=== PATIENT | male | born 1965 | race Caucasian/White ===

== ENCOUNTER 2018-09-28 09:09 | Inpatient (IN) | payer BC ==
[2018-09-28] MEDS ORDERED: SODIUM CHLORIDE 0.9% 500 ML 500 ML IV STA (09:27)
[2018-09-28] MEDS ORDERED: MAG HYDROX/AL HYDROX/SIMETH 30 ML, HYOSCYAMINE ELIXIR 10 ML, CIMETIDINE HCL 300 MG, LID... PO STA ×4 (09:28)
--- NOTE | 2018-09-28 09:31 | ED ---
General Adult HPI - General Chief complaint: Abdominal Pain Stated complaint: abdominal pain Time Seen by Provider: 09/28/18 09:16 Source: patient, RN notes reviewed, old records reviewed Mode of arrival: ambulatory Limitations: no limitations - History of Present Illness Initial comments: 53-year-old male with no significant past medical history presenting for evaluation of epigastric abdominal pain which is been present for the past 5 days. Patient has had some mild nausea. No diarrhea or constipation. He has been seen at urgent care, he did have laboratory testing and x-ray, he is uncertain of the results of this testing. He does report a 15-20 pound weight loss over the past several months. He has no chest pain or dyspnea. No cough. He has subjective fever and chills. - Related Data Home Medications Medication Instructions Recorded Confirmed Ibuprofen [Motrin Ib] 200 mg PO Q12HR PRN 09/28/18 09/28/18 Multivitamins, Thera [Multivitamin 1 tab PO DAILY 09/28/18 09/28/18 (formulary)] Pantoprazole Sodium [Protonix] 40 mg PO DAILY 09/28/18 09/28/18 Previous Rx's Medication Instructions Recorded Acetaminophen-Codeine 300-30mg 1 tab PO Q6H PRN 3 Days #12 tablet 09/28/18 [Tylenol w/codeine #3] Sulfamethox-Tmp 800-160Mg [Bactrim 1 tab PO Q12HR #10 tab 09/28/18 DS 800-160 mg] Allergies Allergy/AdvReac Type Severity Reaction Status Date / Time No Known Allergies Allergy Verified 09/28/18 09:33 Review of Systems ROS Statement: Those systems with pertinent positive or pertinent negative responses have been documented in the HPI. ROS Other: All systems not noted in ROS Statement are negative. Past Medical History Past Medical History: No Reported History History of Any Multi-Drug Resistant Organisms: None Reported Past Surgical History: Hernia Repair Past Psychological History: No Psychological Hx Reported Smoking Status: Current every day smoker Past Alcohol Use History: None Reported Past Drug Use History: None Reported General Exam Limitations: no limitations General appearance: alert, in no apparent distress Head exam: Present: atraumatic, normocephalic Eye exam: Present: normal appearance, PERRL ENT exam: Present: normal exam Neck exam: Present: normal inspection. Absent: tenderness, meningismus Respiratory exam: Present: normal lung sounds bilaterally. Absent: respiratory distress, wheezes Cardiovascular Exam: Present: regular rate, normal rhythm GI/Abdominal exam: Present: soft. Absent: distended, tenderness, guarding, rebound Extremities exam: Present: normal inspection, normal capillary refill Neurological exam: Present: alert, oriented X3 Psychiatric exam: Present: normal affect, normal mood Skin exam: Present: warm, dry, intact. Absent: cyanosis, diaphoretic Course Vital Signs 09/28/18 09/28/18 09/28/18 09:12 11:26 12:40 Temperature 99.4 F 100 F H 101.8 F H Pulse Rate 76 69 62 Respiratory 18 18 18 Rate Blood Pressure 116/77 116/52 122/68 O2 Sat by Pulse 97 98 100 Oximetry 09/28/18 13:21 Temperature 103.1 F H Pulse Rate 78 Respiratory 18 Rate Blood Pressure 126/53 O2 Sat by Pulse 96 Oximetry Medical Decision Making - Medical Decision Making 53-year-old male with epigastric pain, anorexia and nausea. Patient has minimal tenderness on exam, no rebound or guarding. Workup was initiated, found to have a white blood cell count 16.6, hemoglobin 12.3. He has normal electrolytes. He has urinalysis showing 3+ ketones consistent with dehydration, no infection. CT is performed, he has hepatomegaly, CT showing inflammation in the colon. He denies significant diarrhea but states she did have a loose stool earlier today. Patient continues to have pain and nausea, he develops fever of 103. He is given antipyretics. Initiated on antibiotics ceftriaxone and Flagyl. He will be admitted with gastroenterology on consult. - Lab Data Result diagrams: 09/28/18 09:45 09/28/18 09:45 Lab Results 09/28/18 09/28/18 09/28/18 Range/Units 09:45 09:45 09:45 WBC 16.6 H (3.8-10.6) k/uL RBC 3.81 L (4.30-5.90) m/uL Hgb 12.3 L (13.0-17.5) gm/dL Hct 36.2 L (39.0-53.0) % MCV 95.0 (80.0-100.0) fL MCH 32.2 (25.0-35.0) pg MCHC 33.9 (31.0-37.0) g/dL RDW 13.8 (11.5-15.5) % Plt Count 205 (150-450) k/uL Neutrophils % 88 % Lymphocytes % 4 % Monocytes % 7 % Eosinophils % 1 % Basophils % 0 % Neutrophils # 14.6 H (1.3-7.7) k/uL Lymphocytes # 0.6 L (1.0-4.8) k/uL Monocytes # 1.1 H (0-1.0) k/uL Eosinophils # 0.2 (0-0.7) k/uL Basophils # 0.0 (0-0.2) k/uL Sodium 134 L (137-145) mmol/L Potassium 4.2 (3.5-5.1) mmol/L Chloride 101 (98-107) mmol/L Carbon Dioxide 22 (22-30) mmol/L Anion Gap 11 mmol/L BUN 17 (9-20) mg/dL Creatinine 0.67 (0.66-1.25) mg/dL Est GFR (CKD-EPI)AfAm >90 (>60 ml/min/1.73 sqM) Est GFR (CKD-EPI)NonAf >90 (>60 ml/min/1.73 sqM) Glucose 114 H (74-99) mg/dL Plasma Lactic Acid Juan (0.7-2.0) mmol/L Calcium 8.7 (8.4-10.2) mg/dL Total Bilirubin 1.1 (0.2-1.3) mg/dL AST 30 (17-59) U/L ALT 37 (21-72) U/L Alkaline Phosphatase 70 (38-126) U/L Troponin I <0.012 (0.000-0.034) ng/mL Total Protein 6.4 (6.3-8.2) g/dL Albumin 3.4 L (3.5-5.0) g/dL Amylase 52 (30-110) U/L Lipase 18 L (23-300) U/L Urine Color Urine Appearance (Clear) Urine pH (5.0-8.0) Ur Specific [place] (1.001-1.035) Urine Protein (Negative) Urine Glucose (UA) (Negative) Urine Ketones (Negative) Urine Blood (Negative) Urine Nitrite (Negative) Urine Bilirubin (Negative) Urine Urobilinogen (<2.0) mg/dL Ur Leukocyte Esterase (Negative) 09/28/18 09/28/18 Range/Units 09:45 11:01 WBC (3.8-10.6) k/uL RBC (4.30-5.90) m/uL Hgb (13.0-17.5) gm/dL Hct (39.0-53.0) % MCV (80.0-100.0) fL MCH (25.0-35.0) pg MCHC (31.0-37.0) g/dL RDW (11.5-15.5) % Plt Count (150-450) k/uL Neutrophils % % Lymphocytes % % Monocytes % % Eosinophils % % Basophils % % Neutrophils # (1.3-7.7) k/uL Lymphocytes # (1.0-4.8) k/uL Monocytes # (0-1.0) k/uL Eosinophils # (0-0.7) k/uL Basophils # (0-0.2) k/uL Sodium (137-145) mmol/L Potassium (3.5-5.1) mmol/L Chloride (98-107) mmol/L Carbon Dioxide (22-30) mmol/L Anion Gap mmol/L BUN (9-20) mg/dL Creatinine (0.66-1.25) mg/dL Est GFR (CKD-EPI)AfAm (>60 ml/min/1.73 sqM) Est GFR (CKD-EPI)NonAf (>60 ml/min/1.73 sqM) Glucose (74-99) mg/dL Plasma Lactic Acid Juan 1.1 (0.7-2.0) mmol/L Calcium (8.4-10.2) mg/dL Total Bilirubin (0.2-1.3) mg/dL AST (17-59) U/L ALT (21-72) U/L Alkaline Phosphatase (38-126) U/L Troponin I (0.000-0.034) ng/mL Total Protein (6.3-8.2) g/dL Albumin (3.5-5.0) g/dL Amylase (30-110) U/L Lipase (23-300) U/L Urine Color Yellow Urine Appearance Clear (Clear) Urine pH 6.5 (5.0-8.0) Ur Specific [place] >1.050 H (1.001-1.035) Urine Protein Trace H (Negative) Urine Glucose (UA) Negative (Negative) Urine Ketones 3+ H (Negative) Urine Blood Negative (Negative) Urine Nitrite Negative (Negative) Urine Bilirubin Negative (Negative) Urine Urobilinogen <2.0 (<2.0) mg/dL Ur Leukocyte Esterase Negative (Negative) Disposition Clinical Impression: Abdominal pain, Colitis Disposition: ADMITTED IP TO THIS [facility] Condition: Stable Instructions (If sedation given, give patient instructions): Colitis (ED) Additional Instructions: Please return with worsening or changing symptoms, please follow up with gastroenterology for further evaluation. Prescriptions: Sulfamethox-Tmp 800-160Mg [Bactrim DS 800-160 mg] 1 tab PO Q12HR #10 tab Acetaminophen-Codeine 300-30mg [Tylenol w/codeine #3] 1 tab PO Q6H PRN 3 Days #12 tablet PRN Reason: Pain Is patient prescribed a controlled substance at d/c from ED?: No Referrals: Zen Parsons MD [Primary Care Provider] - 1-2 days Marycarmen Barraza MD [STAFF PHYSICIAN] - 1-2 days Time of Disposition: 11:57
[2018-09-28 10:10] LABS: Basophils % (A) 0 %; Eosinophils # (A) 0.2 k/uL (0-0.7); Eosinophils % (A) 1 %; HCT 36.2 % (39.0-53.0); HGB 12.3 gm/dL (13.0-17.5); Lymphocytes # (A) 0.6 k/uL (1.0-4.8); Lymphocytes % (A) 4 %; MCH 32.2 pg (25.0-35.0); MCHC 33.9 g/dL (31.0-37.0); Mean Platelet Volume 8.1; Monocytes # (A) 1.1 k/uL (0-1.0); Monocytes % (A) 7 %; Neutrophils # (A) 14.6 k/uL (1.3-7.7); Neutrophils % (A) 88 %; Platelet Count 205 k/uL (150-450); RBC 3.81 m/uL (4.30-5.90); RDW 13.8 % (11.5-15.5); WBC 16.6 k/uL (3.8-10.6)
[2018-09-28 10:16] LABS: ALT 37 U/L (21-72); AST 30 U/L (17-59); African American GFR (CKD) >90 (>60 ml/min/1.73 sqM); Albumin 3.4 g/dL (3.5-5.0); Alkaline Phosphatase 70 U/L (38-126); Amylase 52 U/L (30-110); Anion Gap 11 mmol/L; Blood Urea Nitrogen 17 mg/dL (9-20); Calcium 8.7 mg/dL (8.4-10.2); Carbon Dioxide 22 mmol/L (22-30); Chloride 101 mmol/L (98-107); Glucose 114 mg/dL (74-99); Lipase 18 U/L (23-300); Potassium 4.2 mmol/L (3.5-5.1); Sodium 134 mmol/L (137-145); Total Bilirubin 1.1 mg/dL (0.2-1.3); Total Protein 6.4 g/dL (6.3-8.2)
--- NOTE | 2018-09-28 10:27 | CT ---
EXAMINATION TYPE: CT abdomen pelvis w con DATE OF EXAM: 09/28/2018 REFERENCE: NONE HISTORY: abdominal pain HISTORY: Abdominal pain CT DLP: 587.7 mGy Automated exposure control for dose reduction was used. TECHNIQUE: Helical acquisition through the abdomen and pelvis was obtained following the oral ingesti on of without Oral Contrast and following intravenous administration of 100 mL of Isovue 300. The bhumi a was reformatted in axial, coronal and sagittal projections. FINDINGS: There is minimal atelectasis at the lung bases. There is no pleural or pericardial fluid. The heart is not enlarged. Within the abdomen, the liver is normal mildly prominent measuring 20 cm. The spleen is upper limits of normal size measuring 12.5 cm. The gallbladder is unremarkable. Both adrenal glands are normal. Both kidneys demonstrate function and appear morphologically normal. The pancreas is unremarkable. There is no significant retroperitoneal, iliac or inguinal adenopathy. The bladder appears slightly thick walled but it is not distended. There is thickening of sections of the transverse colon and also the sigmoid colon. The appendix is n ot seen with certainty. Small bowel loops are normal caliber. There is no free fluid and no free air. No bony lesion is seen. IMPRESSION: 1. HEPATOMEGALY. 2. THICKENING OF PARTS OF THE TRANSVERSE COLON AND SIGMOID COLONS. PLEASE CORRELATE FOR COLITIS. 3. FAILURE TO VISUALIZE THE APPENDIX. 4. THICK-WALLED BLADDER LIKELY REFLECTS LACK OF DISTENTION.
[2018-09-28 11:20] LABS: Appearance,Urine Clear (Clear); Bilirubin,Urine Negative (Negative); Blood,Urine Negative (Negative); Color,Urine Yellow; Glucose,Urine (UA) Negative (Negative); Ketones,Urine 3+ (Negative); Leukocyte Esterase,Urine Negative (Negative); Nitrite,Urine Negative (Negative); PH, Urine 6.5 (5.0-8.0); Protein,Urine Trace (Negative); Urobilinogen,Urine <2.0 mg/dL (<2.0)
[2018-09-28 11:33] LABS: Specific Gravity,Urine >1.050 (1.001-1.035)
[2018-09-28] MEDS ORDERED: cefTRIAXone IN SWFI 1,000 MG/10 ML SYRINGE IVP STA ×2 (11:38→11:41)
[2018-09-28] MEDS ORDERED: metroNIDAZOLE-NS PMX 500 MG in SALINE 1 100ML.BAG IVPB STA (11:38)
[2018-09-28] MEDS ORDERED: SODIUM CHLORIDE 0.9% 1,000 ML IV ONE (11:38)
[2018-09-28] MEDS ORDERED: KETOROLAC 30 MG/ML 1 ML VIAL IVP STA (13:15)
[2018-09-28] MEDS ORDERED: NALOXONE 0.4 MG/ML 1 ML VIAL IV PRN (13:48)
[2018-09-28] MEDS ORDERED: ONDANSETRON 4 MG/2 ML VIAL IVP PRN (13:48)
[2018-09-28] MEDS ORDERED: SODIUM CHLORIDE 0.9% 1,000 ML IV SCH (14:00)
[2018-09-28] MEDS: ACETAMINOPHEN TAB 325 MG TAB PO PRN ×2 (15:12→20:25)
[2018-09-28] MEDS: IBUPROFEN 400 MG TAB PO PRN ×2 (16:24→22:30)
--- NOTE | 2018-09-28 21:48 | HP ---
HISTORY AND PHYSICAL DATE OF ADMISSION: September 28, 2018. PRESENTING COMPLAINT: Abdominal pain. HISTORY OF PRESENTING COMPLAINT: This is a very pleasant 53-year-old patient of Dr. Parsons. Five days ago patient had a very large [employer] [place] dish and then felt some discomfort in the epigastric area. Slowly this progressively got worse. Pain was more localized to the upper abdomen. The patient did go to Urgent Care yesterday. Also started having some nausea. Then patient started spiking fevers up to 103 when he came here. No change in bowel pattern. Also having fever and chills. The patient is started on IV ceftriaxone and IV Flagyl in the ER. The patient otherwise healthy, in good shape pretty active. Has no history of reflux. No known gallbladder disease. REVIEW OF SYSTEMS: CONSTITUTIONAL: Hot, cold chills. HEENT: None. RESPIRATORY none. CARDIOVASCULAR: None. GASTROINTESTINAL as above. GENITOURINARY: None. MUSCULOSKELETAL: None. DERMATOLOGICAL, HEMATOLOGIC, LYMPHATIC: none. PSYCHIATRY none. NEUROLOGICAL none. PAST MEDICAL HISTORY: None. PAST SURGICAL HISTORY: Hernia repair, right fibula spiral fracture, 1 plate and 10 screws that was removed in 2000. SOCIAL HISTORY: Smokes about 3-4 cigarettes a day. 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 Lives by himself. Alcohol very occasionally. FAMILY HISTORY: Diabetes and cardiac issues. MEDICATIONS: Home medications: Protonix 40 mg a day, multivitamin 1 tablet p.o. daily, Motrin 200 mg q.12 p.r.n., Bactrim DS 1 tablet p.o. q.12, Tylenol 3. ALLERGIES: None. PHYSICAL EXAMINATION: VITAL SIGNS: Temperature 103.1, pulse 72, respiratory 18, blood pressure 126/53, pulse ox 96 percent on room air. GENERAL APPEARANCE: Average build, lying in bed. A bit tired-appearing. EYES: Pupils equal. Conjunctivae normal. HEENT external appearance of nose and ears normal. Oral cavity normal. NECK: JVD not raised. Mass not palpable. RESPIRATORY: Effort normal. LUNGS: Fair air entry. CARDIOVASCULAR: First and second sounds no edema. ABDOMEN: Upper abdomen tenderness. No guarding or rigidity. Liver and spleen not palpable. LYMPHATIC: No lymph nodes palpable in the neck and axilla. PSYCHIATRY: Alert and oriented x3. Mood and affect normal. NEUROLOGICAL: Pupils equal. Cranial nerves grossly intact. Power and sensation grossly intact. INVESTIGATIONS: White count 16.6, hemoglobin 12.3, potassium 4.2, BUN creatinine is normal. Amylase 52, lipase 18. CT scan of the abdomen and pelvis, gallbladder unremarkable, section of the transverse colon and also the sigmoid colon. ASSESSMENT: Acute colitis affecting the transverse and sigmoid colon, likely colitis, likely infectious with a septic picture. PLAN: Patient is started on IV ceftriaxone and Flagyl. We will give Lovenox for DVT prophylaxis. Start the patient on lactated Ringer's 125 mL an hour. We will get both Gastroenterology and surgical consultations. Care was discussed with the patient. Questions were answered. The patient will be made n.p.o. except for ice chips. Copy to Dr. Parsons. HIPOLITO / RICHAR: [id number] /
[2018-09-28] MEDS: ENOXAPARIN 40 MG/0.4 ML SYRINGE SQ SCH (22:25)
[2018-09-28] MEDS: LACTATED RINGERS 1,000 ML IV SCH (22:26)
[2018-09-29] MEDS: MORPHINE SULFATE 4 MG/ML SYRINGE IV PRN ×4 (01:08→21:18)
[2018-09-29] MEDS: LACTATED RINGERS 1,000 ML IV SCH ×2 (05:44→13:20)
[2018-09-29] MEDS: PANTOPRAZOLE 40 MG/10 ML VIAL IV SCH (07:50)
[2018-09-29] MEDS: ENOXAPARIN 40 MG/0.4 ML SYRINGE SQ SCH (07:50)
[2018-09-29] MEDS: ACETAMINOPHEN TAB 325 MG TAB PO PRN ×2 (11:11→19:44)
[2018-09-29 11:35] LABS: Basophils % (A) 0 %; Eosinophils % (A) 1 %; HCT 36.6 % (39.0-53.0); Lymphocytes # (A) 0.4 k/uL (1.0-4.8); Lymphocytes % (A) 6 %; MCH 31.7 pg (25.0-35.0); MCHC 32.8 g/dL (31.0-37.0); MCV 96.8 fL (80.0-100.0); Mean Platelet Volume 8.1; Monocytes # (A) 0.6 k/uL (0-1.0); Monocytes % (A) 7 %; Neutrophils # (A) 6.6 k/uL (1.3-7.7); Neutrophils % (A) 85 %; Platelet Count 166 k/uL (150-450); RBC 3.78 m/uL (4.30-5.90); RDW 13.6 % (11.5-15.5); WBC 7.8 k/uL (3.8-10.6)
[2018-09-29 11:44] LABS: ALT 58 U/L (21-72); AST 55 U/L (17-59); African American GFR (CKD) >90 (>60 ml/min/1.73 sqM); Albumin 2.7 g/dL (3.5-5.0); Alkaline Phosphatase 64 U/L (38-126); Anion Gap 7 mmol/L; Blood Urea Nitrogen 13 mg/dL (9-20); Calcium 8.1 mg/dL (8.4-10.2); Carbon Dioxide 25 mmol/L (22-30); Chloride 103 mmol/L (98-107); Glucose 91 mg/dL (74-99); Potassium 4.3 mmol/L (3.5-5.1); Sodium 135 mmol/L (137-145); Total Bilirubin 0.7 mg/dL (0.2-1.3); Total Protein 5.4 g/dL (6.3-8.2)
--- NOTE | 2018-09-29 11:53 | P.GSCN ---
<Smiley Boucher A - Last Filed: 09/29/18 12:20> History of Present Illness Consult date: 09/29/18 Reason for Consult: abdominal pain Requesting physician: Rodger Horvath History of present illness: CHIEF COMPLAINT: Abdominal pain HISTORY OF PRESENT ILLNESS: 53-year-old male who presented to emergency room with chief complaint of abdominal pain. Patient states he began having epigastric pain last Saturday and the pain is continued since that time. He reports the pain has radiated a little bit but the majority of his pain is near the epigastric region. He denies lower abdominal pain. He reports having some constipation in July and states he had to follow a liquid diet for a couple weeks and then the constipation resolved. He denies diarrhea. Denies hematemesis, hematochezia, or melena. Patient reports having fevers of 101F before coming to the hospital. He denies previous history of EGD or colonoscopy. PAST MEDICAL HISTORY: See list. PAST SURGICAL HISTORY: See list. MEDICATIONS: See list. ALLERGIES: See list. SOCIAL HISTORY: No illicit drug use. REVIEW OF SYSTEMS: CONSTITUTIONAL: Reports fevers. HEENT: Denies blurred vision, vision changes, or eye pain. Denies hemoptysis ENDOCRINE: Denies heat or cold intolerance. CARDIOVASCULAR: Denies chest pain or pressure. RESPIRATORY: No shortness of breath. GASTROINTESTINAL: See HPI for pertinent findings. NEURO: Denies history of seizures. PSYCH: No depression or suicidal ideation HEMATOLOGIC: Denies bleeding disorders. LYMPHATIC: The patient denies any lumps and bumps around the neck. GENITOURINARY: Denies any blood in urine or increased urinary frequency. MUSCULOSKELETAL: Denies myalgias. Denies joint swelling. Denies decreased range of motion beyond patients baseline. SKIN: Denies pruitis. Denies rash. PHYSICAL EXAM: VITAL SIGNS: Currently stable. GENERAL: Well-developed in no acute distress. HEENT: No sclera icterus. Extraocular movements grossly intact. Moist buccal mucosa. Head is atraumatic, normocephalic. Hears conversational speech. No nasal drainage. NECK: Supple without lymphadenopathy. CHEST: Non-labored respirations and equal bilateral excursions. CARDIOVASCULAR: Regular rate with regular rhythm. Palpable 2+ radial pulses. ABDOMEN: Soft. Nondistended. Positive bowel sounds. Tenderness on palpation epigastric region. No pain or tenderness with palpation of lower quadrants. MUSCULOSKELETAL: No clubbing, cyanosis or edema. NEUROLOGIC: No focal or lateralizing signs. Cranial nerves II through XII grossly intact. PSYCH: Appropriate affect. Alert and oriented to person, place and time. SKIN: Well perfused. Good skin turgor. LABORATORY DATA: Laboratory on admission reveals white count 16.6. Hemoglobin 12.3. Sodium 134. Potassium 4.2. BUN 17. Creatinine 0.67. Repeat blood work this morning reveals white count 7.8. Hemoglobin 12.0. IMAGING: Per radiologist dictation 1. CT abdomen and pelvis: Hepatomegaly. Thickening of parts of the transverse colon and sigmoid colon. Correlate for colitis. The gallbladder likely reflects lack of distention. ASSESSMENT: 1. Epigastric pain 2. Acute colitis per CT scan dictation, however suspect acute diverticulitis per Dr. Loya 3. Sepsis, present on admission, patient presented with fever and leukocytosis PLAN: 1. Continue IV antibiotics 2. NPO 3. EGD scheduled for tomorrow with Dr. Loya 4. Outpatient colonoscopy will be required in 4-6 weeks once diverticulitis resolved Nurse practitioner note has been reviewed by physician. Signing provider agrees with the documented findings, assessment, and plan of care. Past Medical History Past Medical History: No Reported History History of Any Multi-Drug Resistant Organisms: None Reported Past Surgical History: Hernia Repair, Orthopedic Surgery Additional Past Surgical History / Comment(s): 1997 right fibula spiral fracture-1 plate 10 screws placed (removed 2000) Past Anesthesia/Blood Transfusion Reactions: Motion Sickness Past Psychological History: No Psychological Hx Reported Smoking Status: Current every day smoker Past Alcohol Use History: None Reported Past Drug Use History: None Reported - Past Family History Mother Family Medical History: Diabetes Mellitus Father Additional Family Medical History / Comment(s): patient states "cardiac issues" Medications and Allergies Home Medications Medication Instructions Recorded Confirmed Type Acetaminophen-Codeine 300-30mg 1 tab PO Q6H PRN 3 Days #12 tablet 09/28/18 Rx [Tylenol w/codeine #3] Ibuprofen [Motrin Ib] 200 mg PO Q12HR PRN 09/28/18 09/28/18 History Multivitamins, Thera [Multivitamin 1 tab PO DAILY 09/28/18 09/28/18 History (formulary)] Pantoprazole Sodium [Protonix] 40 mg PO DAILY 09/28/18 09/28/18 History Sulfamethox-Tmp 800-160Mg [Bactrim 1 tab PO Q12HR #10 tab 09/28/18 Rx DS 800-160 mg] Allergies Allergy/AdvReac Type Severity Reaction Status Date / Time No Known Allergies Allergy Verified 09/28/18 09:33 Surgical - Exam Vital Signs Temp Pulse Resp BP Pulse Ox 99.4 F 76 18 116/77 97 09/28/18 09:12 09/28/18 09:12 09/28/18 09:12 09/28/18 09:12 09/28/18 09:12 Results - Labs 09/29/18 10:54 09/29/18 10:54 Abnormal Lab Results - Last 24 Hours (Table) 09/29/18 Range/Units 10:54 RBC 3.78 L (4.30-5.90) m/uL Hgb 12.0 L (13.0-17.5) gm/dL Hct 36.6 L (39.0-53.0) % Lymphocytes # 0.4 L (1.0-4.8) k/uL Assessment and Plan (1) Epigastric pain Current Visit: Yes Status: Acute Code(s): R10.13 - EPIGASTRIC PAIN SNOMED Code(s): 09451616 (2) Diverticulitis Current Visit: Yes Status: Acute Code(s): K57.92 - DVTRCLI OF INTEST, PART UNSP, W/O PERF OR ABSCESS W/O BLEED SNOMED Code(s): 451363027 (3) Sepsis Current Visit: Yes Status: Acute Code(s): A41.9 - SEPSIS, UNSPECIFIED ORGANISM SNOMED Code(s): 04670591 (4) Leukocytosis Current Visit: Yes Status: Acute Code(s): D72.829 - ELEVATED WHITE BLOOD CELL COUNT, UNSPECIFIED SNOMED Code(s): 017444180 (5) Fever Current Visit: Yes Status: Acute Code(s): R50.9 - FEVER, UNSPECIFIED SNOMED Code(s): 511874273 <Wendy Loya - Last Filed: 09/29/18 19:39> History of Present Illness History of present illness: CT of the abdomen and pelvis personally reviewed with sigmoid diverticulitis found without perforation. Patient reports epigastric pain which is his main symptom. He denies any lower abdominal pain with the exception of change in bowel habits in the last 2 weeks and constipation. Will proceed with EGD. Colonoscopy as outpatient as he reports no prior colonoscopies. Surgical - Exam Vital Signs Temp Pulse Resp BP Pulse Ox 99.4 F 76 18 116/77 97 09/28/18 09:12 09/28/18 09:12 09/28/18 09:12 09/28/18 09:12 09/28/18 09:12 Results - Labs 09/29/18 10:54 09/29/18 10:54 Abnormal Lab Results - Last 24 Hours (Table) 09/29/18 09/29/18 Range/Units 10:54 10:54 RBC 3.78 L (4.30-5.90) m/uL Hgb 12.0 L (13.0-17.5) gm/dL Hct 36.6 L (39.0-53.0) % Lymphocytes # 0.4 L (1.0-4.8) k/uL Sodium 135 L (137-145) mmol/L Calcium 8.1 L (8.4-10.2) mg/dL Total Protein 5.4 L (6.3-8.2) g/dL Albumin 2.7 L (3.5-5.0) g/dL Microbiology - Last 24 Hours (Table) 09/28/18 09:45 Blood Culture - Preliminary Blood No Growth after 24 hours Diabetes panel 09/29/18 Range/Units 10:54 Sodium 135 L (137-145) mmol/L Potassium 4.3 (3.5-5.1) mmol/L Chloride 103 (98-107) mmol/L Carbon Dioxide 25 (22-30) mmol/L BUN 13 (9-20) mg/dL Creatinine 0.66 (0.66-1.25) mg/dL Glucose 91 (74-99) mg/dL Calcium 8.1 L (8.4-10.2) mg/dL AST 55 (17-59) U/L ALT 58 (21-72) U/L Alkaline Phosphatase 64 (38-126) U/L Total Protein 5.4 L (6.3-8.2) g/dL Albumin 2.7 L (3.5-5.0) g/dL Calcium panel 09/29/18 Range/Units 10:54 Calcium 8.1 L (8.4-10.2) mg/dL Albumin 2.7 L (3.5-5.0) g/dL Pituitary panel 09/29/18 Range/Units 10:54 Sodium 135 L (137-145) mmol/L Potassium 4.3 (3.5-5.1) mmol/L Chloride 103 (98-107) mmol/L Carbon Dioxide 25 (22-30) mmol/L BUN 13 (9-20) mg/dL Creatinine 0.66 (0.66-1.25) mg/dL Glucose 91 (74-99) mg/dL Calcium 8.1 L (8.4-10.2) mg/dL Adrenal panel 09/29/18 Range/Units 10:54 Sodium 135 L (137-145) mmol/L Potassium 4.3 (3.5-5.1) mmol/L Chloride 103 (98-107) mmol/L Carbon Dioxide 25 (22-30) mmol/L BUN 13 (9-20) mg/dL Creatinine 0.66 (0.66-1.25) mg/dL Glucose 91 (74-99) mg/dL Calcium 8.1 L (8.4-10.2) mg/dL Total Bilirubin 0.7 (0.2-1.3) mg/dL AST 55 (17-59) U/L ALT 58 (21-72) U/L Alkaline Phosphatase 64 (38-126) U/L Total Protein 5.4 L (6.3-8.2) g/dL Albumin 2.7 L (3.5-5.0) g/dL
--- NOTE | 2018-09-29 12:10 | P.CONS ---
History of Present Illness - Reason for Consult Consult date: 09/29/18 Abdominal pain colitis Requesting physician: Rodger Horvath - Chief Complaint Abdominal pain - History of Present Illness 53-year-old male admitted with fever T-max 103.1 upper abdominal epigastric pain GERD type symptoms 1 week with 15-20 pound weight loss for the last several months without diarrhea constipation hematemesis hematochezia or melena. Similar presentation of these types of symptoms about a month ago but resolved within a short period of time. Otherwise no history of these types of symptoms. No recent travels. No sick contacts. CT report transverse sigmoid colitis hepatomegaly. White count 16.6. Hemoglobin 12.3. LFTs within normal limits. Lipase 18. No history of EGD colonoscopy. No history of colitis. No history of personal or familial inflammatory bowel diseases. Today white count is improved 7.8. Hemoglobin 12. No diarrhea. Review of Systems Constitutional: Denies fever, chills, sweats, weight gain, or loss. HEENT: Negative for migraines, blurred vision or loss, earaches, drainage, tinnitus, oral mucosal lesions, dysphagia, or odynophagia. Cardiac: Negative for chest pain, arrhythmias, or palpitation. Respiratory: Negative for shortness of breath, hemoptysis, cough, or sputum pr oduction. Gastrointestinal: See HPI for pertinent findings. Genitourinary: Negative for hematuria, urgency, frequency, polyuria, dysuria, or penile discharge. Musculoskeletal: Negative for muscle aches, swelling, arthritis, and arthralgias. Neurologic: Negative for stroke or TIA. Endocrine: Negative for thyroid problems. Skin: Negative for rash or itching. Psychiatric: Negative history for depression and anxiety Past Medical History Past Medical History: No Reported History History of Any Multi-Drug Resistant Organisms: None Reported Past Surgical History: Hernia Repair, Orthopedic Surgery Additional Past Surgical History / Comment(s): 1997 right fibula spiral f racture-1 plate 10 screws placed (removed 2000) Past Anesthesia/Blood Transfusion Reactions: Motion Sickness Past Psychological History: No Psychological Hx Reported Smoking Status: Current every day smoker Past Alcohol Use History: None Reported Past Drug Use History: None Reported - Past Family History Mother Family Medical History: Diabetes Mellitus Father Additional Family Medical History / Comment(s): patient states "cardiac issues" Medications and Allergies Home Medications Medication Instructions Recorded Confirmed Type Acetaminophen-Codeine 300-30mg 1 tab PO Q6H PRN 3 Days #12 tablet 09/28/18 Rx [Tylenol w/codeine #3] Ibuprofen [Motrin Ib] 200 mg PO Q12HR PRN 09/28/18 09/28/18 History Multivitamins, Thera [Multivitamin 1 tab PO DAILY 09/28/18 09/28/18 History (formulary)] Pantoprazole Sodium [Protonix] 40 mg PO DAILY 09/28/18 09/28/18 History Sulfamethox-Tmp 800-160Mg [Bactrim 1 tab PO Q12HR #10 tab 09/28/18 Rx DS 800-160 mg] Allergies Allergy/AdvReac Type Severity Reaction Status Date / Time No Known Allergies Allergy Verified 09/28/18 09:33 Physical Exam Vitals: Vital Signs Temp Pulse Pulse Resp BP BP Pulse Ox 09/29/18 04:52 98.8 F 54 L 14 91/48 97 09/28/18 22:43 98.7 F 09/28/18 19:59 99.5 F 61 12 94/50 97 09/28/18 18:26 100.1 F H 09/28/18 16:50 101.9 F H 09/28/18 16:07 103.0 F H 09/28/18 15:01 103.1 F H 70 16 117/61 98 09/28/18 13:21 103.1 F H 78 18 126/53 96 09/28/18 12:40 101.8 F H 62 18 122/68 100 09/28/18 11:26 100 F H 69 18 116/52 98 Intake and Output 09/28/18 09/29/18 09/29/18 22:59 06:59 14:59 Intake Total 1080 Balance 1080 Intake: Oral 1080 Other: Voiding Method Bedside Commode # Voids 1 1 General appearance: The patient is alert, oriented, in no acute distress. HET: Head is normocephalic and atraumatic. Pupils are equal and reactive. Oropharynx is clear without lesions. Neck: Supple without lymphadenopathy. Trachea midline. Heart: S1 S2. Regular rate and rhythm. Lungs: No crackles or wheezes are heard. Abdomen: Soft, mild epigastric tenderness, nondistended with bowel sounds. No peritoneal signs. No palpable organomegaly or masses. Extremities: Normal skin color and turgor. No cyanosis, rash, ulceration, clubbing, or edema. Radial and pedal pulses are 2/4 bilaterally. Neurological: No focal deficits. Strength and sensation are grossly intact. Results CBC & Chem 7: 09/29/18 10:54 09/29/18 10:54 Labs: Abnormal Lab Results - Last 24 Hours (Table) 09/28/18 09/28/18 09/28/18 Range/Units 09:45 09:45 11:01 WBC 16.6 H (3.8-10.6) k/uL RBC 3.81 L (4.30-5.90) m/uL Hgb 12.3 L (13.0-17.5) gm/dL Hct 36.2 L (39.0-53.0) % Neutrophils # 14.6 H (1.3-7.7) k/uL Lymphocytes # 0.6 L (1.0-4.8) k/uL Monocytes # 1.1 H (0-1.0) k/uL Sodium 134 L (137-145) mmol/L Glucose 114 H (74-99) mg/dL Albumin 3.4 L (3.5-5.0) g/dL Lipase 18 L (23-300) U/L Ur Specific Hermann >1.050 H (1.001-1.035) Urine Protein Trace H (Negative) Urine Ketones 3+ H (Negative) CT scan - abdomen: report reviewed (Dr. Barraza) Assessment and Plan (1) Colitis Narrative/Plan: 53-year-old gentleman admitted with acute epigastric abdominal pain GERD-like symptoms with fever CT reported transverse sigmoid colitis possible self limiting infectious possible inflammatory possible ischemic. Underlying exacerbation of GERD possible peptic ulcer disease cannot be excluded. Current Visit: Yes Status: Acute Code(s): K52.9 - NONINFECTIVE GASTROENTERITIS AND COLITIS, UNSPECIFIED SNOMED Code(s): 90762631 (2) Fever Current Visit: Yes Status: Acute Code(s): R50.9 - FEVER, UNSPECIFIED SNOMED Code(s): 728884193 (3) Abdominal pain Current Visit: Yes Status: Acute Code(s): R10.9 - UNSPECIFIED ABDOMINAL PAIN SNOMED Code(s): 99421319 Plan: 1. IV antibiotics. General surgery planning on EGD tomorrow. Outpatient colonoscopy advised for baseline screening. Stool studies if diarrhea persists. 2. Daily CBC electrolyte monitoring. 3. Nothing by mouth except medications ice chips. 4. General surgical consult recommendations appreciated. Thank you for this kind referral and the opportunity to participate in the care of your patient. This consultation was discussed with Dr. Barraza. The impression and plan of care have been directed as dictated.
[2018-09-29] MEDS: LEVOFLOXACIN 750MG-D5W PMX 750 MG in DEXTROSE/WATER 1 150ML.BAG IVPB SCH (13:20)
[2018-09-29 14:24] VITALS: BMI 22.1
[2018-09-29] MEDS: metroNIDAZOLE-NS PMX 500 MG in SALINE 1 100ML.BAG IVPB SCH (15:56)
[2018-09-29] MEDS: IBUPROFEN 400 MG TAB PO PRN (21:18)
--- NOTE | 2018-09-29 21:54 | PN ---
PROGRESS NOTE DATE OF SERVICE: 09/29/2018. This 53-year-old gentleman who was admitted with abdominal pain and features of colitis. Patient being closely monitored. No chest pain. No palpitations. Surgical and GI consultations in progress. EXAM: Alert and oriented times three. Pulse 52, blood pressure 109/64, respirations 16, temperature 98 degrees, pulse ox 98% on room air. HEENT: Conjunctivae normal. NECK: No jugular venous distention. CARDIOVASCULAR: S1, S2 muffled. RESPIRATORY: Breath sounds diminished in the bases. Scattered rhonchi and crackles. ABDOMEN: Soft, mild diffuse discomfort on palpation in the upper abdomen. Bowel sounds present. No ascites. LEGS are no edema, no swelling. CENTRAL NERVOUS SYSTEM: No focal deficits. LAB STUDIES: WBC 11.7, hemoglobin 12. ASSESSMENT: 1. Acute diffuse colitis for evaluation. 2. Anemia, normocytic of undetermined etiology. 3. Mild hyponatremia. 4. History of hernia surgery. 5. History of right fibular fracture. 6. History of nicotine dependence. RECOMMENDATIONS AND DISCUSSION: In this 53-year-old gentleman who presented with multiple medical issues, we will monitor the patient closely, continue the current medications, management and symptomatic treatment. We will initiate broad-spectrum IV antibiotics. Otherwise Levaquin and Flagyl will be used. Continue with IV fluids cautiously. Proton pump inhibitors. DVT prophylaxis. Guarded prognosis because of multiple complex medical issues. Further recommendations to follow. HIPOLITO / RICHAR: [id number] /
[2018-09-30] MEDS: metroNIDAZOLE-NS PMX 500 MG in SALINE 1 100ML.BAG IVPB SCH ×2 (00:14→07:38)
[2018-09-30] MEDS: LACTATED RINGERS 1,000 ML IV SCH ×4 (00:14→20:42)
[2018-09-30] MEDS: PANTOPRAZOLE 40 MG/10 ML VIAL IV SCH (07:36)
[2018-09-30] MEDS ORDERED: IV FLUID CONTINUATION 200 ML IV ONE (08:03)
--- NOTE | 2018-09-30 08:13 | P.PCN ---
Date of Procedure: 09/30/18 Description of Procedure: PREOPERATIVE DIAGNOSIS: Gastroesophageal reflux disease. Epigastric abdominal pain Fevers POSTOPERATIVE DIAGNOSIS: Gastroesophageal reflux disease. Epigastric abdominal pain Fevers Gastritis OPERATION: Esophagogastroduodenoscopy with biopsies along antrum. SURGEON: Wendy Loya MD ANESTHESIA: MAC. INDICATIONS: The patient is a 53-year-old male who presents with a history of reflux disease and epigastric abdominal pain. Benefits and risks of the procedure were descri bed. Informed consent was obtained. DESCRIPTION: The patient was brought into the endoscopy suite and laid in the left lateral decubitus position. An Olympus gastroscope was passed along the posterior oropharynx down to the distal esophagus where the squamocolumnar junction was encountered at 40 cm from the incisors. The stomach was entered and no bile reflux was found. Additional findings are listed below. Biopsies with cold forceps were obtained of the antrum. The first through third portion of the duodenum was examined and unremarkable. Retroflexion of the scope confirmed Hill grade 2 lower esophageal valve. The squamocolumnar junction demonstrated LA grade A erosive esophagitis. The stomach was desufflated. The patient tolerated the procedure well. FINDINGS: Squamocolumnar junction 40 cm from the incisors. Diaphragmatic hiatus at 41 cm Hill grade 2 lower esophageal valve. LA grade A erosive esophagitis. No active duodenitis. Chronic gastritis RECOMMENDATIONS: Upper endoscopy as needed.
[2018-09-30] MEDS: ENOXAPARIN 40 MG/0.4 ML SYRINGE SQ SCH (08:39)
[2018-09-30 09:35] LABS: HCT 35.8 % (39.0-53.0); HGB 11.8 gm/dL (13.0-17.5); MCH 31.9 pg (25.0-35.0); MCHC 32.9 g/dL (31.0-37.0); MCV 96.8 fL (80.0-100.0); Mean Platelet Volume 7.9; Platelet Count 167 k/uL (150-450); RDW 13.8 % (11.5-15.5); WBC 6.5 k/uL (3.8-10.6)
--- NOTE | 2018-09-30 10:32 | P.PN ---
Subjective Progress Note Date: 09/30/18 Principal diagnosis: Abdominal pain Status post EGD this morning with general surgery no evidence of peptic ulcer disease. T-max 101. Preliminary blood culture gram-positive cocci. Morning labs pending. Receiving IV antibiotics. No stool studies to review. Denies diarrhea. No bowel movements. Objective - Vital Signs Vital signs: Vital Signs Temp 97.5 F L 09/30/18 04:15 Pulse 73 09/30/18 04:15 Resp 16 09/30/18 04:15 BP 106/63 09/30/18 04:15 Pulse Ox 94 L 09/30/18 04:15 Intake & Output 09/29/18 09/30/18 09/30/18 18:59 06:59 18:59 Intake Total 50 Balance 50 Weight 66.224 kg Intake: IV 50 Other: Voiding Method Toilet Urinal # Voids 3 2 - Exam General appearance: The patient is alert, oriented, in no acute distress. HET: Head is normocephalic and atraumatic. Pupils are equal and reactive. Oropharynx is clear without lesions. Neck: Supple without lymphadenopathy. Trachea midline. Heart: S1 S2. Regular rate and rhythm. Lungs: No crackles or wheezes are heard. Abdomen: Soft, mild midepigastric tenderness, nondistended with bowel sounds. No peritoneal signs. No palpable organomegaly or masses. Extremities: Normal skin color and turgor. No cyanosis, rash, ulceration, clubbing, or edema. Radial and pedal pulses are 2/4 bilaterally. Neurological: No focal deficits. Strength and sensation are grossly intact. - Labs CBC & Chem 7: 09/30/18 09:20 09/29/18 10:54 Labs: Abnormal Lab Results - Last 24 Hours (Table) 09/29/18 09/29/18 Range/Units 10:54 10:54 RBC 3.78 L (4.30-5.90) m/uL Hgb 12.0 L (13.0-17.5) gm/dL Hct 36.6 L (39.0-53.0) % Lymphocytes # 0.4 L (1.0-4.8) k/uL Sodium 135 L (137-145) mmol/L Calcium 8.1 L (8.4-10.2) mg/dL Total Protein 5.4 L (6.3-8.2) g/dL Albumin 2.7 L (3.5-5.0) g/dL Microbiology - Last 24 Hours (Table) 09/28/18 09:45 Blood Culture Gram Stain - Preliminary Blood 09/28/18 09:45 Blood Culture - Final Blood Assessment and Plan (1) Colitis Narrative/Plan: 53-year-old gentleman admitted with acute epigastric abdominal pain GERD-like symptoms with fever CT reported transverse sigmoid colitis possible self l imiting infectious possible inflammatory possible ischemic. Underlying exacerbation of GERD possible peptic ulcer disease cannot be excluded. Current Visit: Yes Status: Acute Code(s): K52.9 - NONINFECTIVE GASTROENTERITIS AND COLITIS, UNSPECIFIED SNOMED Code(s): 69111340 (2) Fever Current Visit: Yes Status: Acute Code(s): R50.9 - FEVER, UNSPECIFIED SNOMED Code(s): 736276110 (3) Abdominal pain Narrative/Plan: Status post EGD no evidence of peptic ulcer disease Current Visit: Yes Status: Acute Code(s): R10.9 - UNSPECIFIED ABDOMINAL PAIN SNOMED Code(s): 61273294 Plan: 1. Repeat blood cultures requested. IV antibiotics. Outpatient colonoscopy advised for baseline screening. Stool studies if diarrhea occurs. 2. Daily CBC electrolyte monitoring. 3. Diet per surgery Assessment and plan a care discussed with Dr. East
[2018-09-30] MEDS: LEVOFLOXACIN 750MG-D5W PMX 750 MG in DEXTROSE/WATER 1 150ML.BAG IVPB SCH (12:26)
[2018-09-30] MEDS: AMPICILLIN-SULBACTAM 3 GM in SODIUM CHLORIDE 0.9% 100 ML IVPB SCH ×3 (12:49→23:04)
--- NOTE | 2018-09-30 15:38 | P.PN ---
Subjective Progress Note Date: 09/30/18 Principal diagnosis: This is a 53-year-old male who was admitted for colitis and is being closely monitored. Patient is afebrile at this time but did spike some fevers last night. Patient is still having mid epigastric pain is intermittent. Patient denies any chest pain or palpitations at this time. Patient is tolerating liquids. Physical exam: Exam patient is alert and oriented 3 and gait is steady walking back from the bathroom. Current vitals 98.1F pulse 49, blood pressure 120/63, pulse ox 98. % on room air Heent: Conjunctiva normal, pupils are equal and reactive Neck: No jugular vein distention, supple with no signs of lymphadenopathy Heart: S1-S2, RRR Respiratory: Breath sounds normal, no crackles or wheezes noted Abdomen: Soft, mid epigastric tenderness upon palpation, nondistended with positive bowel sounds. No masses noted on palpation Extremities: Normal skin color no cyanosis, rash, or edema noted positive pulses. Nervous system: No focal deficits. Labs: WBCs 6.5, hemoglobin 11.8, awaiting blood culture results, awaiting stool culture. Assessment: 1. Acute diffuse colitis 2. Anemia, normocytic of undetermined etiology 3. Mild hyponatremia 4. History of hernia surgery 5. History of right fibular fracture 6. History of nicotine dependence Recommendations and discussions: With this 53-year-old male we will continue to monitor the patient closely, continue with the current medications, monitor for any fevers, and continue with IV antibiotics at this time. Guarded prognosis because of multiple complex medical issues. Further recommendations to follow. Awaiting EGD results at this time. Objective - Vital Signs Vital signs: Vital Signs Temp 97.5 F L 09/30/18 12:57 Pulse 47 L 09/30/18 12:57 Resp 16 09/30/18 12:57 BP 122/66 09/30/18 12:57 Pulse Ox 97 09/30/18 12:57 Intake & Output 09/29/18 09/30/18 09/30/18 18:59 06:59 18:59 Intake Total 50 Balance 50 Weight 66.224 kg Intake: IV 50 Other: Voiding Method Toilet Urinal # Voids 3 2 - Labs CBC & Chem 7: 09/30/18 09:20 09/29/18 10:54 Labs: Abnormal Lab Results - Last 24 Hours (Table) 07/02/19 Range/Units 09:20 RBC 3.70 L (4.30-5.90) m/uL Hgb 11.8 L (13.0-17.5) gm/dL Hct 35.8 L (39.0-53.0) % Microbiology - Last 24 Hours (Table) 09/28/18 09:45 Blood Culture Gram Stain - Preliminary Blood Blood Culture - Preliminary Streptococcus species 09/28/18 09:45 Blood Culture - Final Blood
[2018-09-30] MEDS: metroNIDAZOLE 500 MG TAB PO SCH ×2 (16:40→23:05)
[2018-09-30] MEDS: ACETAMINOPHEN TAB 325 MG TAB PO PRN (16:50)
--- NOTE | 2018-09-30 17:04 | P.PN ---
Progress Note - Text Progress Note Date: 09/30/18 Findings of upper endoscopy reviewed with patient. Patient has spiking fevers now consistent with bacteremia. Overall, no lower abdominal pain. Low fiber diet may be started.
[2018-09-30] MEDS: IBUPROFEN 400 MG TAB PO PRN (20:47)
--- NOTE | 2018-10-01 00:07 | P.CONS ---
History of Present Illness - Reason for Consult Consult date: 09/30/18 Bacteremia Requesting physician: Trung Fulton - Chief Complaint Abdominal pain x few days - History of Present Illness Patient is a 53-year-old male presenting to the ER at [facility] on 09/28/2018 with chief complaints of abdominal pain which has been mostly in epigastric area for a few days before presenting to the hospital patient described the pain to be more of a burning in nature intensity 6-7 out of 10 when he presented to the hospital with no radiation with associated nausea and vomiting but no diarrhea PRESENTED to the hospital the patient did have CT of abdominal pelvis with did shows evidence of sigmoid and transverse colon colitis patient has been running a fever of 103 right and did have elevated white count patient has been treated with Levaquin and Flagyl with a blood culture being positive with gram-positive cocci that prompted his infectious disease consultation patient did have an EGD done this morning showed evidence o f antral gastritis Review of Systems Positive points has been mentioned in HPI rest of the systems negative Past Medical History Past Medical History: No Reported History History of Any Multi-Drug Resistant Organisms: None Reported Past Surgical History: Hernia Repair, Orthopedic Surgery Additional Past Surgical History / Comment(s): 1997 right fibula spiral fracture-1 plate 10 screws placed (removed 2000) Past Anesthesia/Blood Transfusion Reactions: Motion Sickness Past Psychological History: No Psychological Hx Reported Smoking Status: Current every day smoker Past Alcohol Use History: None Reported Past Drug Use History: None Reported - Past Family History Mother Family Medical History: Diabetes Mellitus Father Additional Family Medical History / Comment(s): patient states "cardiac issues" Medications and Allergies Home Medications Medication Instructions Recorded Confirmed Type Acetaminophen-Codeine 300-30mg 1 tab PO Q6H PRN 3 Days #12 tablet 09/28/18 Rx [Tylenol w/codeine #3] Ibuprofen [Motrin Ib] 200 mg PO Q12HR PRN 09/28/18 09/28/18 History Multivitamins, Thera [Multivitamin 1 tab PO DAILY 09/28/18 09/28/18 History (formulary)] Pantoprazole Sodium [Protonix] 40 mg PO DAILY 09/28/18 09/28/18 History Sulfamethox-Tmp 800-160Mg [Bactrim 1 tab PO Q12HR #10 tab 09/28/18 Rx DS 800-160 mg] Allergies Allergy/AdvReac Type Severity Reaction Status Date / Time No Known Allergies Allergy Verified 09/28/18 09:33 Physical Exam Vitals: Vital Signs Temp Pulse Resp BP BP Pulse Ox 09/30/18 09:29 98.1 F 49 L 120/63 98 09/30/18 09:14 45 L 116/62 96 09/30/18 08:59 42 L 115/66 95 09/30/18 08:44 49 L 122/70 96 09/30/18 08:29 98.2 F 42 L 99/56 97 09/30/18 04:15 97.5 F L 73 16 106/63 94 L 09/29/18 21:45 98.6 F 09/29/18 20:20 101.0 F H 64 18 135/64 94 L 09/29/18 19:43 102.9 F H 09/29/18 15:00 98.0 F 52 L 16 109/61 98 Intake and Output 09/29/18 09/30/18 09/30/18 22:59 06:59 14:59 Intake Total 50 Balance 50 Intake: IV 50 Other: Voiding Method Toilet Urinal # Voids 1 2 GENERAL DESCRIPTION: Middle-aged male lying in bed, no distress. No tachypnea or accessory muscle of respiration use. HEENT: Shows Pallor , no scleral icterus. Oral mucous membrane is dry. No pharyngeal erythema or thrush NECK: Trachea central, no thyromegaly. LUNGS: Unlabored breathing. Clear to auscultation anteriorly. No wheeze or crackle. HEART: S1, S2, regular rate and rhythm. No loud murmur ABDOMEN: Soft, mild epigastric tenderness ,no guarding or rigidity, no organomegaly EXTREMITIES: No edema of feet. SKIN: No rash, no masses palpable. NEUROLOGICAL: The patient is awake, alert, oriented x3, mood and affect normal Results CBC & Chem 7: 09/30/18 09:20 09/29/18 10:54 Labs: Abnormal Lab Results - Last 24 Hours (Table) 09/30/18 Range/Units 09:20 RBC 3.70 L (4.30-5.90) m/uL Hgb 11.8 L (13.0-17.5) gm/dL Hct 35.8 L (39.0-53.0) % Microbiology - Last 24 Hours (Table) 09/28/18 09:45 Blood Culture Gram Stain - Preliminary Blood 09/28/18 09:45 Blood Culture - Final Blood Assessment and Plan Assessment: 1-patient with gram-positive bacteremia in this patient presented to hospital abdominal pain has been mostly epigastric area with a computed tomography scan suspicious for transverse colon colitis in this patient who did have a fever and elevated white count meeting criteria for several/sepsis the likely source of this bacteremia is abdominal and more likely will be Streptococcus species rather than staph in this patient currently with no other clinical focus of infection for this bacteremia (1) Bacteremia due to Streptococcus Current Visit: Yes Status: Acute Code(s): R78.81 - BACTEREMIA; B95.5 - UNSP STREPTOCOCCUS THE CAUSE OF DISEASES [facility] SNOMED Code(s): 959428527267 (2) Colitis Current Visit: Yes Status: Acute Code(s): K52.9 - NONINFECTIVE GASTROENTERITIS AND COLITIS, UNSPECIFIED SNOMED Code(s): 13663232 (3) Sepsis Current Visit: Yes Status: Acute Code(s): A41.9 - SEPSIS, UNSPECIFIED ORGANISM SNOMED Code(s): 50153708 Plan: 1-blood cultures will be repeated to document clearance of bacteremia 2-discontinue the Levaquin 3-start the patient on Unasyn 3 g every 6 hours we will follow up on clinical condition and cultures to further adjust medication if needed Thank you for this consultation will follow this patient along with you Time with Patient: Greater than 30
[2018-10-01] MEDS: AMPICILLIN-SULBACTAM 3 GM in SODIUM CHLORIDE 0.9% 100 ML IVPB SCH ×4 (05:38→23:38)
[2018-10-01] MEDS: LACTATED RINGERS 1,000 ML IV SCH ×3 (05:38→21:12)
[2018-10-01] MEDS: ACETAMINOPHEN TAB 325 MG TAB PO PRN ×2 (05:39→17:33)
[2018-10-01] MEDS: ENOXAPARIN 40 MG/0.4 ML SYRINGE SQ SCH (08:16)
[2018-10-01] MEDS: PANTOPRAZOLE 40 MG TABLET PO SCH (08:16)
[2018-10-01] MEDS: metroNIDAZOLE 500 MG TAB PO SCH ×3 (08:16→23:38)
[2018-10-01 09:13] LABS: HCT 35.8 % (39.0-53.0); HGB 11.8 gm/dL (13.0-17.5); MCH 31.9 pg (25.0-35.0); MCV 96.6 fL (80.0-100.0); Mean Platelet Volume 8.5; Platelet Count 193 k/uL (150-450); RBC 3.71 m/uL (4.30-5.90); RDW 14.2 % (11.5-15.5); WBC 6.3 k/uL (3.8-10.6)
--- NOTE | 2018-10-01 10:08 | CDI ---
Documentation Clarification Form Date: 10/01/2018 9:07:46 AM From: Mae Henley Phone: Admit Date: 09/29/2018 1:47:00 PM Patient Name: Hola Baxter Visit Number: [id number] Discharge Date: ATTENTION: The Clinical Documentation Specialists (CDI) and [facility] Coding Staff appreciate your assistance in clarifying documentation. Please respond to the clarification below the line at the bottom and electronically sign. The CDI & [facility] Coding staff will review the response and follow-up if needed. Please note: Queries are made part of the Legal Health Record. If you have any questions, please contact the author of this message via ITS. Dr. Trung Fulton The patient presented with abdominal pain, fever, chills and elevated WBC. History/Risk Factors: No reported History. Current every day smoker Clinical Indicators: 53-year old male present for evaluation of epigastric abdominal pain, fever and chills. Vital signs on admission: 122/68 62 18 101.8, 126/53 78 18 103.1 WBC 16.6, 7.8, Lactic acid: 1.1 CT abdomen: Showing inflammation in the colon Blood cultures: Alpha Hemolytic Streptococcus Other Clinical Indicators: 09/28/18 Dr. Velazquez: Acute colitis affecting the transverse and sigmoid colon, likely colitis, likely infectious with a septic picture. 09/29/18 Surgery consult (Dr. Loya: Sepsis, present on admission, patient presented with fever and leukocytosis Treatment: ID Consult Dr. Lance: 09/30/18 Patient with gram-positive bacteremia in a patient who did have a fever and elevated white count meeting criteria for sepsis likely source of the bacteremia is abdominal and more likely will be Streptococcus species rather than staph. Sepsis. Antibiotics: Unasyn IV, Flagyl PO IV Bolus X2 IV Fluid @125 mls/hr Monitor CBC, repeat blood cultures In your professional opinion, please clarify if these findings signify one of the following conditions, whether the condition is POA, and cause, if known: Condition Sepsis due to Streptococcus POA Sepsis ruled out Other, please specify Unable to determine SIRS Criteria (2 or more of the following may indicate SIRS): -Temperature < 96.8F (36C) or > 101.0F (38.3C) -Heart Rate > 90 bpm -Respiratory Rate > 20 breaths/min or PaCO2 < 32 mmHg -White Blood Cell Count > 12,000 or < 4,000 cells/mm3 or > 10% bands -Lactate >2.0 mmol/L (>4.0 is equivalent to septic shock) (Last Revision: June 2017) Sepsis due to Streptococcus POA MTDD
--- NOTE | 2018-10-01 11:11 | XR ---
EXAMINATION TYPE: XR abdomen 2V DATE OF EXAM: 10/01/2018 10:20 AM CLINICAL HISTORY: Abdominal pain TECHNIQUE: Upright and supine images of the abdomen were obtained. COMPARISON: None. FINDINGS: Scattered gas is seen in nondilated small bowel loops. Air-fluid levels are present within the nondilated colon. There is no visceromegaly, pneumoperitoneum, or abnormal calcification apprecia simone. The lung bases are clear and the osseous structures are intact. Mild degenerative changes of the femoral acetabular joints are seen. IMPRESSION: Colonic air-fluid levels within nondilated bowel typically related to colonic malabsorpti on/diarrhea. Nonobstructive bowel gas pattern.
--- NOTE | 2018-10-01 11:38 | P.PN ---
<Smiley Boucher A - Last Filed: 10/01/18 11:32> Subjective Progress Note Date: 10/01/18 CHIEF COMPLAINT: Abdominal pain HISTORY OF PRESENT ILLNESS: Patient examined at the bedside with Dr. Loya. Patient continues to report epigastric pain, but states it has improved since a dmission. He is tolerating diet. Denies nausea or vomiting. Denies constipation or diarrhea. WBC 6.3. Hemoglobin 11.8. CRP 192.2. Patient afebrile this morning. PHYSICAL EXAM: VITAL SIGNS: Currently stable. GENERAL: Well-developed in no acute distress. HEENT: No sclera icterus. Extraocular movements grossly intact. Moist buccal mucosa. Head is atraumatic, normocephalic. Hears conversational speech. No nasal drainage. NECK: Supple without lymphadenopathy. CHEST: Non-labored respirations and equal bilateral excursions. CARDIOVASCULAR: Regular rate with regular rhythm. Palpable 2+ radial pulses. ABDOMEN: Soft. Nondistended. Positive bowel sounds. Tenderness on palpation epigastric region. No pain or tenderness with palpation of lower quadrants. MUSCULOSKELETAL: No clubbing, cyanosis or edema. NEUROLOGIC: No focal or lateralizing signs. Cranial nerves II through XII grossly intact. PSYCH: Appropriate affect. Alert and oriented to person, place and time. SKIN: Well perfused. Good skin turgor. ASSESSMENT: 1. Epigastric pain 2. Acute colitis per CT scan dictation, however suspect acute diverticulitis per Dr. Loya 3. Sepsis, present on admission, patient presented with fever and leukocytosis 4. Bacteremia PLAN: 1. Continue IV antibiotics. Infectious disease following. 2. Continue diet as tolerated 3. Continue Protonix 4. Obtain 2V abdominal xray 5. GI also following 5. Outpatient colonoscopy will be required in 4-6 weeks once diverticulitis resolved Nurse practitioner note has been reviewed by physician. Signing provider agrees with the documented findings, assessment, and plan of care. Objective - Vital Signs Vital signs: Vital Signs Temp 98.5 F 10/01/18 05:35 Pulse 46 L 10/01/18 05:35 Resp 22 10/01/18 05:35 BP 118/69 10/01/18 05:35 Pulse Ox 95 10/01/18 05:35 Intake & Output 07/02/19 07/03/19 07/03/19 18:59 06:59 18:59 Intake Total 50 Balance 50 Intake: IV 50 Other: Voiding Method Toilet Urinal # Voids 3 1 # Bowel Movements 1 - Labs CBC & Chem 7: 10/01/18 07:57 09/29/18 10:54 Labs: Abnormal Lab Results - Last 24 Hours (Table) 10/01/18 10/01/18 Range/Units 07:57 07:57 RBC 3.71 L (4.30-5.90) m/uL Hgb 11.8 L (13.0-17.5) gm/dL Hct 35.8 L (39.0-53.0) % C-Reactive Protein 192.2 H (<10.0) mg/L Microbiology - Last 24 Hours (Table) 09/30/18 09:14 Blood Culture - Preliminary Blood No Growth after 24 hours 09/28/18 09:45 Blood Culture Gram Stain - Preliminary Blood Blood Culture - Preliminary Alpha Hemolytic Streptococcus 09/30/18 14:30 Stool Culture - Preliminary Stool Assessment and Plan (1) Epigastric pain Current Visit: Yes Status: Acute Code(s): R10.13 - EPIGASTRIC PAIN SNOMED Code(s): 04627531 (2) Diverticulitis Current Visit: Yes Status: Acute Code(s): K57.92 - DVTRCLI OF INTEST, PART UNSP, W/O PERF OR ABSCESS W/O BLEED SNOMED Code(s): 271929011 (3) Sepsis Current Visit: Yes Status: Acute Code(s): A41.9 - SEPSIS, UNSPECIFIED ORGANISM SNOMED Code(s): 05553256 (4) Leukocytosis Current Visit: Yes Status: Acute Code(s): D72.829 - ELEVATED WHITE BLOOD CELL COUNT, UNSPECIFIED SNOMED Code(s): 322951440 (5) Fever Current Visit: Yes Status: Acute Code(s): R50.9 - FEVER, UNSPECIFIED SNOMED Code(s): 473441611 <Wendy Loya - Last Filed: 10/01/18 17:05> Subjective Patient was still complaining of epigastric abdominal pain. Upper endoscopy was overall unremarkable for gastric ulcers. RADIOLOGY: 2 view abdominal x-ray personally reviewed demonstrating no free air. No obstructive gas pattern. REPORT: Radiology report also reviewed with additional findings of fluid levels and colon consistent with diarrhea. Recommend prophylactic proton pump inhibitors. Otherwise GI following. No additional surgical intervention needed. Objective - Vital Signs Vital signs: Vital Signs Temp 97.7 F 10/01/18 13:00 Pulse 50 L 10/01/18 13:00 Resp 16 10/01/18 13:00 BP 114/63 10/01/18 13:00 Pulse Ox 96 10/01/18 13:00 Intake & Output 09/30/18 10/01/18 10/01/18 18:59 06:59 18:59 Intake Total 50 Balance 50 Intake: IV 50 Other: Voiding Method Toilet Urinal # Voids 3 1 3 # Bowel Movements 1 - Labs CBC & Chem 7: 10/01/18 07:57 09/29/18 10:54 Labs: Abnormal Lab Results - Last 24 Hours (Table) 10/01/18 10/01/18 Range/Units 07:57 07:57 RBC 3.71 L (4.30-5.90) m/uL Hgb 11.8 L (13.0-17.5) gm/dL Hct 35.8 L (39.0-53.0) % ESR 31 H (0-15) mm/hr C-Reactive Protein 192.2 H (<10.0) mg/L Microbiology - Last 24 Hours (Table) 09/30/18 09:14 Blood Culture - Preliminary Blood No Growth after 24 hours 09/28/18 09:45 Blood Culture Gram Stain - Preliminary Blood Blood Culture - Preliminary Alpha Hemolytic Streptococcus 09/30/18 14:30 Stool Culture - Preliminary Stool
[2018-10-01 12:48] LABS: Erythrocyte Sedimentation Rate 31 mm/hr (0-15)
--- NOTE | 2018-10-01 13:14 | P.PN ---
Subjective Progress Note Date: 10/01/18 Principal diagnosis: Abdominal pain Status post EGD with general surgery no evidence of peptic ulcer disease. Afebrile. Feels well. Passed and nonbloody looser stool, stool culture pending. White count 6.3. Hemoglobin 11.8. ESR 31. CRP 192. Receiving IV antibiotics. Minimal abdominal discomfort. Objective - Vital Signs Vital signs: Vital Signs Temp 98.5 F 10/01/18 05:35 Pulse 46 L 10/01/18 05:35 Resp 22 10/01/18 05:35 BP 118/69 10/01/18 05:35 Pulse Ox 95 10/01/18 05:35 Intake & Output 09/30/18 10/01/18 10/01/18 18:59 06:59 18:59 Intake Total 50 Balance 50 Intake: IV 50 Other: Voiding Method Toilet Urinal # Voids 3 1 # Bowel Movements 1 - Exam General appearance: The patient is alert, oriented, in no acute distress. HET: Head is normocephalic and atraumatic. Pupils are equal and reactive. Oropharynx is clear without lesions. Neck: Supple without lymphadenopathy. Trachea midline. Heart: S1 S2. Regular rate and rhythm. Lungs: No crackles or wheezes are heard. Abdomen: Soft, mild midepigastric tenderness, nondistended with bowel sounds. No peritoneal signs. No palpable organomegaly or masses. Extremities: Normal skin color and turgor. No cyanosis, rash, ulceration, clubbing, or edema. Radial and pedal pulses are 2/4 bilaterally. Neurological: No focal deficits. Strength and sensation are grossly intact. - Labs CBC & Chem 7: 10/01/18 07:57 09/29/18 10:54 Labs: Abnormal Lab Results - Last 24 Hours (Table) 10/01/18 10/01/18 Range/Units 07:57 07:57 RBC 3.71 L (4.30-5.90) m/uL Hgb 11.8 L (13.0-17.5) gm/dL Hct 35.8 L (39.0-53.0) % ESR 31 H (0-15) mm/hr C-Reactive Protein 192.2 H (<10.0) mg/L Microbiology - Last 24 Hours (Table) 09/30/18 09:14 Blood Culture - Preliminary Blood No Growth after 24 hours 09/28/18 09:45 Blood Culture Gram Stain - Preliminary Blood Blood Culture - Preliminary Alpha Hemolytic Streptococcus 09/30/18 14:30 Stool Culture - Preliminary Stool Assessment and Plan (1) Colitis Narrative/Plan: 53-year-old gentleman admitted with acute epigastric abdominal pain GERD-like symptoms with fever CT reported transverse sigmoid colitis possible self limiting infectious possible inflammatory possible ischemic. Underlying exacerbation of GERD possible peptic ulcer disease cannot be excluded. Current Visit: Yes Status: Acute Code(s): K52.9 - NONINFECTIVE GASTROENTERITIS AND COLITIS, UNSPECIFIED SNOMED Code(s): 82731822 (2) Fever Current Visit: Yes Status: Acute Code(s): R50.9 - FEVER, UNSPECIFIED SNOMED Code(s): 739395882 (3) Abdominal pain Narrative/Plan: Status post EGD no evidence of peptic ulcer disease Current Visit: Yes Status: Acute Code(s): R10.9 - UNSPECIFIED ABDOMINAL PAIN SNOMED Code(s): 86778184 Plan: 1. Daily CRP discharge when trending down. Continue IV antibiotics. Out patient colonoscopy advised for baseline screening. 2. Daily CBC electrolyte monitoring. 3. Follow-up with general surgery for outpatient colonoscopy per patient request. Assessment and plan a care discussed with Dr. East
[2018-10-01] MEDS: IBUPROFEN 400 MG TAB PO PRN (15:42)
--- NOTE | 2018-10-01 16:54 | P.PN ---
Subjective Progress Note Date: 10/01/18 Principal diagnosis: This is a 53-year-old male who was admitted to the hospital with abdominal pain, GERD-like symptoms, fever. Patient was diagnosed with transverse sigmoid coli tis. Patient has been on IV antibiotics therapy and has tolerated well. Patient is improving and has been afebrile over the last 24 hours. Blood cultures were positive for also hemolytic Streptococcus and being treated with IV antibiotics. Stool cultures were obtained and still pending at this time. Patient is having bowel movements with no blood. Patient is still having some mid epigastric pain that is intermittent. Patient tolerating diet. Patient appears to be in no acute distress at this time. Objective - Vital Signs Vital signs: Vital Signs Temp 97.7 F 10/01/18 13:00 Pulse 50 L 10/01/18 13:00 Resp 16 10/01/18 13:00 BP 114/63 10/01/18 13:00 Pulse Ox 96 10/01/18 13:00 Intake & Output 09/30/18 10/01/18 10/01/18 18:59 06:59 18:59 Intake Total 50 Balance 50 Intake: IV 50 Other: Voiding Method Toilet Urinal # Voids 3 1 3 # Bowel Movements 1 - Exam HEENT: Head is atraumatic, normocephalic. Pupils equal, round. Sclerae is anicteric. NECK: Supple. No JVD. No lymphadenopathy. No thyromegaly. LUNGS: Clear to auscultation. No wheezes or rhonchi. HEART: Regular rate and rhythm. No murmur. ABDOMEN: Soft. Tender in the mid epigastric area upon palpation. Bowel sounds are present. No masses. EXTREMITIES: No pedal edema. NEUROLOGICAL: Patient is awake, alert and oriented x3. Cranial nerves 2 through 12 are grossly intact. - Constitutional General appearance: Present: cooperative, no acute distress - Gastrointestinal General gastrointestinal: Present: normal bowel sounds - Labs CBC & Chem 7: 10/01/18 07:57 09/29/18 10:54 Labs: Abnormal Lab Results - Last 24 Hours (Table) 10/01/18 10/01/18 Range/Units 07:57 07:57 RBC 3.71 L (4.30-5.90) m/uL Hgb 11.8 L (13.0-17.5) gm/dL Hct 35.8 L (39.0-53.0) % ESR 31 H (0-15) mm/hr C-Reactive Protein 192.2 H (<10.0) mg/L Microbiology - Last 24 Hours (Table) 09/30/18 09:14 Blood Culture - Preliminary Blood No Growth after 24 hours 09/28/18 09:45 Blood Culture Gram Stain - Preliminary Blood Blood Culture - Preliminary Alpha Hemolytic Streptococcus 09/30/18 14:30 Stool Culture - Preliminary Stool Assessment and Plan Assessment: 1. Acute diffuse colitis 2. Anemia, normocytic of undetermined etiology 3. Mild hyponatremia 4. History of hernia surgery 5. History of right fibular fracture 6. History of nicotine dependence 7. Elevated CPK Recommendations and discussion: This 53-year-old male who has recommended to continue IV antibiotics at this time, we'll continue to monitor labs and have repeat labs done in the a.m. to monitor the CPK. Continue with symptomatic treatment. Patient's CPKs are trending down patient will likely be discharged within the next 24-48 hours.
--- NOTE | 2018-10-01 18:53 | PN ---
PROGRESS NOTE DATE OF SERVICE: 10/01/2018. REASON FOR FOLLOWUP VISIT: Transverse colitis with strep bacteremia. INTERVAL HISTORY: The patient is currently afebrile. The patient has been breathing comfortably. The patient epigastric discomfort has improved. No nausea, no vomiting. Has been tolerating a clear liquid diet. PHYSICAL EXAMINATION: Blood pressure 114/63 with a pulse of 50, temperature 97.7, he is 96% on room air. General description is a middle-aged male lying in bed in no distress. Respiratory system: Unlabored breathing. Clear to auscultation. HEART: S1, S2. Regular rate and rhythm. Abdomen soft, no tenderness. Extremities: No edema of the feet. LABS: Hemoglobin 11.8, white count 6.3. Blood culture with alpha hemolytic Streptococcus. DIAGNOSTIC IMPRESSION AND PLAN: Patient with alpha hemolytic Streptococcus bacteremia. This patient has been admitted to the hospital with abdominal pain mostly epigastric area with evidence of transverse colitis on the CT. The patient is currently covered with Unasyn to continue with plan to finish therapy with oral antibiotic as the patient continues to improve and continues supportive care. MMODL / IJN: [id number] /
[2018-10-02] MEDS: LACTATED RINGERS 1,000 ML IV SCH (05:26)
[2018-10-02 05:44] VITALS: BP 119/68; PULSE 48; RESP 20; TEMP 98
[2018-10-02] MEDS: ACETAMINOPHEN TAB 325 MG TAB PO PRN ×2 (05:44→11:57)
[2018-10-02] MEDS: AMPICILLIN-SULBACTAM 3 GM in SODIUM CHLORIDE 0.9% 100 ML IVPB SCH (05:45)
[2018-10-02] MEDS: PANTOPRAZOLE 40 MG TABLET PO SCH (07:42)
[2018-10-02] MEDS: ENOXAPARIN 40 MG/0.4 ML SYRINGE SQ SCH (07:43)
[2018-10-02] MEDS: metroNIDAZOLE 500 MG TAB PO SCH (07:43)
[2018-10-02 08:16] LABS: HCT 35.6 % (39.0-53.0); HGB 11.6 gm/dL (13.0-17.5); MCH 31.4 pg (25.0-35.0); MCHC 32.6 g/dL (31.0-37.0); MCV 96.2 fL (80.0-100.0); Mean Platelet Volume 7.3; Platelet Count 209 k/uL (150-450); RDW 13.1 % (11.5-15.5); WBC 6.5 k/uL (3.8-10.6)
--- NOTE | 2018-10-02 12:01 | P.PN ---
<Smiley Boucher A - Last Filed: 10/02/18 11:58> Subjective Progress Note Date: 10/02/18 CHIEF COMPLAINT: Abdominal pain HISTORY OF PRESENT ILLNESS: Patient examined at the bedside with Dr. Loya. Patient continues to report epigastric pain, but states it has improved since a dmission. Patient is concerned it may be related to his gallbladder because he was researching his symptoms on his phone. He denies intolerance to fatty foods. He is tolerating diet. Denies nausea or vomiting. Denies constipation or diarrhea. WBC 6.5. Hemoglobin 11.6. CRP improving. Down to 137.7 this morning. Patient afebrile. PHYSICAL EXAM: VITAL SIGNS: Currently stable. GENERAL: Well-developed in no acute distress. HEENT: No sclera icterus. Extraocular movements grossly intact. Moist buccal mucosa. Head is atraumatic, normocephalic. Hears conversational speech. No nasal drainage. NECK: Supple without lymphadenopathy. CHEST: Non-labored respirations and equal bilateral excursions. CARDIOVASCULAR: Regular rate with regular rhythm. Palpable 2+ radial pulses. ABDOMEN: Soft. Nondistended. Positive bowel sounds. Tenderness on palpation epigastric region. No pain or tenderness with palpation of lower quadrants. MUSCULOSKELETAL: No clubbing, cyanosis or edema. NEUROLOGIC: No focal or lateralizing signs. Cranial nerves II through XII grossly intact. PSYCH: Appropriate affect. Alert and oriented to person, place and time. SKIN: Well perfused. Good skin turgor. ASSESSMENT: 1. Epigastric pain 2. Acute diverticulitis 3. Sepsis, present on admission, patient presented with fever and leukocytosis 4. Bacteremia PLAN: 1. Continue IV antibiotics. Infectious disease following. 2. Continue diet as tolerated 3. Continue Protonix 4. GI also following 5. Outpatient colonoscopy will be required in 4-6 weeks once diverticulitis resolved 6. Stable for discharge home today. Follow up with Dr. Loya outpatient. Further workup of gallbladder to be performed outpatient if needed. Nurse practitioner note has been reviewed by physician. Signing provider agrees with the documented findings, assessment, and plan of care. Objective - Vital Signs Vital signs: Vital Signs Temp 98 F 10/02/18 04:40 Pulse 48 L 10/02/18 04:40 Resp 20 10/02/18 04:40 BP 119/68 10/02/18 04:40 Pulse Ox 92 L 10/02/18 04:40 Intake & Output 10/01/18 10/02/18 10/02/18 18:59 06:59 18:59 Intake Total 300 200 Balance 300 200 Intake: Oral 300 200 Other: Voiding Method Toilet Urinal # Voids 3 2 - Labs CBC & Chem 7: 10/02/18 07:34 09/29/18 10:54 Labs: Abnormal Lab Results - Last 24 Hours (Table) 10/01/18 10/02/18 10/02/18 Range/Units 07:57 07:34 07:34 RBC 3.70 L (4.30-5.90) m/uL Hgb 11.6 L (13.0-17.5) gm/dL Hct 35.6 L (39.0-53.0) % ESR 31 H (0-15) mm/hr C-Reactive Protein 137.7 H (<10.0) mg/L Microbiology - Last 24 Hours (Table) 09/30/18 09:14 Blood Culture - Preliminary Blood No Growth after 48 hours 09/28/18 09:45 Blood Culture Gram Stain - Final Blood Blood Culture - Final Alpha Hemolytic Streptococcus Assessment and Plan (1) Epigastric pain Status: Acute Code(s): R10.13 - EPIGASTRIC PAIN SNOMED Code(s): 65076042 (2) Diverticulitis Status: Acute Code(s): K57.92 - DVTRCLI OF INTEST, PART UNSP, W/O PERF OR ABSCESS W/O BLEED SNOMED Code(s): 217064877 (3) Sepsis Status: Acute Code(s): A41.9 - SEPSIS, UNSPECIFIED ORGANISM SNOMED Code(s): 22089530 (4) Leukocytosis Status: Acute Code(s): D72.829 - ELEVATED WHITE BLOOD CELL COUNT, UNSPECIFIED SNOMED Code(s): 500323533 (5) Fever Status: Acute Code(s): R50.9 - FEVER, UNSPECIFIED SNOMED Code(s): 070055170 <Wendy Loya - Last Filed: 10/02/18 18:24> Subjective As above. Pathology report reviewed with only gastritis found. Will do outpatient work-up for gallbladder disease. Colonoscopy as outpatient described which may also be done with GI team as well. Objective - Vital Signs Vital signs: Vital Signs Temp 98 F 10/02/18 04:40 Pulse 48 L 10/02/18 04:40 Resp 20 10/02/18 04:40 BP 119/68 10/02/18 04:40 Pulse Ox 92 L 10/02/18 04:40 Intake & Output 10/01/18 10/02/18 10/02/18 18:59 06:59 18:59 Intake Total 300 200 Balance 300 200 Intake: Oral 300 200 Other: Voiding Method Toilet Urinal # Voids 3 2 - Labs CBC & Chem 7: 10/02/18 07:34 09/29/18 10:54 Labs: Abnormal Lab Results - Last 24 Hours (Table) 10/02/18 10/02/18 Range/Units 07:34 07:34 RBC 3.70 L (4.30-5.90) m/uL Hgb 11.6 L (13.0-17.5) gm/dL Hct 35.6 L (39.0-53.0) % C-Reactive Protein 137.7 H (<10.0) mg/L Microbiology - Last 24 Hours (Table) 09/30/18 09:14 Blood Culture - Preliminary Blood No Growth after 48 hours 09/28/18 09:45 Blood Culture Gram Stain - Final Blood Blood Culture - Final Alpha Hemolytic Streptococcus
--- NOTE | 2018-10-02 22:01 | DS ---
DISCHARGE SUMMARY DATE OF SERVICE: 10/02/2018. FINAL DIAGNOSES: 1. Acute diffuse colitis of undetermined etiology possibly infectious. 2. Anemia, normocytic of undetermined etiology. 3. Mild hyponatremia. 4. History of hernia surgery. 5. Right fibular fracture. 6. History of nicotine dependence. 7. Elevated CPK. 8. Alpha hemolytic Streptococcus sepsis and bacteremia. DISCHARGE DISPOSITION: The patient will be discharged in stable condition with guarded prognosis. HISTORY OF PRESENT ILLNESS: This 53-year-old gentleman, admitted with features of colitis also had features of sepsis. The patient given antibiotics. Patient was seen by Surgery and as well as Gastroenterology and surgery and as well as Infectious Disease. Care was coordinated. Recommended outpatient followup. Bactrim, antibiotics, per infectious disease. On exam, vitals signs are stable. Cardiovascular: S1, S2. Abdomen soft. Nervous System: No focal deficits. DISCHARGE ADVICE AND MEDICATIONS: 1. Diet is cardiac diet. 2. Activity limited until followup. 3. Follow up with Dr. Parsons in 2-3 days. Follow up with Dr. Loya as advised. 4. Follow up with Dr. Barraza as recommended. DISCHARGE MEDICATIONS: 1. Motrin p.r.n. 2. Multivitamins 1 p.o. daily. 3. Protonix 40 mg p.o. daily. 4. Bactrim DS 1 p.o. b.i.d. 5. Protonix 40 mg p.o. daily. 6. Tylenol #3 p.r.n. MMLINAL / OLIVERION: [id number] /
== END 2018-10-02 13:01 | disposition home or self-care (01) | DRG 872 ==
LOC: EC 09:09 → 4MS4W 13:48 → OBSVTOIN 09-29 13:47
PROVIDERS: ADMIT Hospitalist; ATTEND Hospitalist
PROC: 0DB78ZX Excision of Stomach, Pylorus, Via Natural or Artificial Opening Endoscopic, Diagnostic (ICD-10-PCS; principal; 2018-09-30 08:00)
DX: A40.8 Other streptococcal sepsis (principal); E87.1 Hypo-osmolality and hyponatremia; K57.32 Diverticulitis of large intestine without perforation or abscess without bleeding; A09 Infectious gastroenteritis and colitis, unspecified; R16.0 Hepatomegaly, not elsewhere classified; D64.9 Anemia, unspecified; E86.0 Dehydration; F17.210 Nicotine dependence, cigarettes, uncomplicated; K21.0 Gastro-esophageal reflux disease with esophagitis; K29.50 Unspecified chronic gastritis without bleeding; R63.4 Abnormal weight loss; Z79.899 Other long term (current) drug therapy; Z83.3 Family history of diabetes mellitus
CPT/HCPCS: 36415; 43239; 74019; 74177; 80053; 81003; 82150; 83605; 83690; 84484; 85025; 85027; 85652; 86140; 87040; 87045; 87046; 88305; 96361; 96365; 96375; 99285

== ENCOUNTER 2018-11-07 09:37 | Day surgery (SDC) | payer BC ==
[2018-11-04 10:27] VITALS: BMI 21.9
[~2018-11-07 09:37] MED LIST: LACTATED RINGERS 1,000 ML IV SCH
[2018-11-07] MEDS ORDERED: LIDOCAINE 1% 20 ML VIAL (10MG/ML) FOR IV START INTRADERMA ONE (10:15)
[2018-11-07 10:20] VITALS: TEMP 97
--- NOTE | 2018-11-07 11:29 | P.PCN ---
Date of Procedure: 11/07/18 Description of Procedure: PREOPERATIVE DIAGNOSIS: Colonoscopy screening, first Family history colon polyps, father POSTOPERATIVE DIAGNOSIS: Colonoscopy screening, first Family history colon polyps, father Large tubular adenoma, rectm Sigmoid diverticulosis External hemorrhoids OPERATION: Colonoscopy to the ileocecal valve and appendiceal orifice. Colonoscopy with hot snare polypectomy SURGEON: Wendy Loya MD. ANESTHESIA: MAC. INDICATIONS: The patient is a 53-year-old male who presents for colonoscopy screening. This is a first colonoscopy. Benefits and risks were described and informed consent was obtained. DESCRIPTION OF PROCEDURE: The patient had undergone Suprep. He had been brought into the operating room and laid in the left lateral decubitus position. After adequate intravenous sedation, the rectum was examined with 2% lidocaine jelly. External hemorrhoids were encountered. The prostate was unremarkable. The rectal tone was within normal limits. No lesions were palpated in the rectal vault. An Olympus colonoscope was advanced until the ileocecal valve and appendiceal orifice were clearly viewed. The prep was excellent. Sigmoid scattered diverticulosis was encountered with highly redundant sigmoid colon. Large 6 mm tubular adenoma was found to 15 cm and addressed with snare polypectomy. No evidence of focal colitis was found. Retroflexion of the scope demonstrated grade 2 internal hemorrhoids without active bleeding or inflammation. The colon was desufflated. The patient had tolerated the procedure well. Withdrawal time was over 6 minutes. FINDINGS: Aronchick preparation quality scale 1 (1-5) Internal hemorrhoids, grade 2 External hemorrhoids, grade 3 No arteriovenous malformations. Removal of 1 polyp: - Snare polypectomy 15 cm from the anal verge, 6 mm tubulovillous adenoma polyp at the rectum. Sigmoid diverticulosis with highly redundant sigmoid colon No focal colitis. RECOMMENDATIONS: Repeat colonoscopy in 3 years, 2021 Plan - Discharge Summary Discharge Rx Participant: No New Discharge Prescriptions: No Action Multivitamins, Thera [Multivitamin (formulary)] 1 tab PO DAILY Pantoprazole [Protonix] 40 mg PO DAILY #30 tab Discharge Medication List Multivitamins, Thera [Multivitamin (formulary)] 1 tab PO DAILY 09/28/18 [History] Pantoprazole [Protonix] 40 mg PO DAILY #30 tab 10/01/18 [Rx] Follow up Appointment(s)/Referral(s): Wendy Loya MD [STAFF PHYSICIAN] - 12/02/18 Patient Instructions/Handouts: Colorectal Polyps (GEN), Diverticulosis Diet (GEN), Diverticulosis (DC) Activity/Diet/Wound Care/Special Instructions: Repeat colonoscopy 3 years, 2021 Discharge Disposition: HOME SELF-CARE
--- NOTE | 2018-11-07 11:31 | P.GSHP ---
History of Present Illness H&P Date: 11/07/18 CHIEF COMPLAINT: Colon screen HISTORY OF PRESENT ILLNESS: The patient is a 53-year-old male who presents for colon screen. Lower endoscopy was offered for further evaluation and management. PAST MEDICAL HISTORY: Please see list. PAST SURGICAL HISTORY: Please see list. MEDICATIONS: Please see list. ALLERGIES: Please see list. SOCIAL HISTORY: No illicit drug use FAMILY HISTORY: No reports of Crohn disease or ulcerative colitis. REVIEW OF ORGAN SYSTEMS: CONSTITUTIONAL: No reports of fevers or chills. PHYSICAL EXAM: VITAL SIGNS: Stable GENERAL: Well-developed pleasant in no acute distress. HEENT: No scleral icterus. Extraocular movements grossly intact. Moist buccal mucosa. NECK: Supple without lymphadenopathy. CHEST: Unlabored respirations. Equal bilateral excursions. CARDIOVASCULAR: Regular rate and rhythm. Distal 2+ pulses. ABDOMEN: Soft, nontender, nondistended. MUSCULOSKELETAL: No clubbing, cyanosis, or edema. ASSESSMENT: 1. Colon screen. PLAN: 1. Recommend proceeding with a lower endoscopy Past Medical History Past Medical History: No Reported History Additional Past Medical History / Comment(s): colitis, abdominal pain History of Any Multi-Drug Resistant Organisms: None Reported Past Surgical History: Hernia Repair, Orthopedic Surgery Additional Past Surgical History / Comment(s): 1997 right fibula spiral fracture-1 plate 10 screws placed (removed 2000) Past Anesthesia/Blood Transfusion Reactions: Motion Sickness, Postoperative Nausea & Vomiting (PONV) Smoking Status: Former smoker - Past Family History Mother Family Medical History: Diabetes Mellitus Father Additional Family Medical History / Comment(s): patient states "cardiac issues" Medications and Allergies Home Medications Medication Instructions Recorded Confirmed Type Multivitamins, Thera [Multivitamin 1 tab PO DAILY 09/28/18 11/04/18 History (formulary)] Pantoprazole [Protonix] 40 mg PO DAILY #30 tab 10/01/18 11/04/18 Rx Allergies Allergy/AdvReac Type Severity Reaction Status Date / Time No Known Allergies Allergy Verified 11/07/18 10:08 Surgical - Exam Vital Signs Temp Pulse Resp BP Pulse Ox 97.0 F L 52 L 16 122/67 96 11/07/18 10:15 11/07/18 10:15 11/07/18 10:15 11/07/18 10:15 11/07/18 10:15
[2018-11-07 11:39] VITALS: RESP 18
[2018-11-07 12:05] VITALS: BP 107/64; PULSE 40
== END 2018-11-07 12:35 | disposition home or self-care (01) ==
LOC: ORWHC2ENDO 09:37
PROVIDERS: ATTEND Surgery Plastic and Reconstructive Surgery
DX: Z12.11 Encounter for screening for malignant neoplasm of colon (principal); Z83.71 Family history of colonic polyps; D12.8 Benign neoplasm of rectum; K57.30 Diverticulosis of large intestine without perforation or abscess without bleeding; K21.9 Gastro-esophageal reflux disease without esophagitis; K64.4 Residual hemorrhoidal skin tags; Z87.891 Personal history of nicotine dependence; Z83.3 Family history of diabetes mellitus; Z79.899 Other long term (current) drug therapy
CPT/HCPCS: 45385; 88305

== ENCOUNTER → 2019-01-24 | Outpatient (CLI) | payer BC ==
[2019-01-24 10:39] LABS: Basophils % (A) 1 %; Eosinophils % (A) 1 %; HCT 41.4 % (39.0-53.0); HGB 14.3 gm/dL (13.0-17.5); Lymphocytes # (A) 1.5 k/uL (1.0-4.8); Lymphocytes % (A) 25 %; MCH 32.9 pg (25.0-35.0); MCHC 34.5 g/dL (31.0-37.0); MCV 95.1 fL (80.0-100.0); Monocytes # (A) 0.4 k/uL (0-1.0); Monocytes % (A) 6 %; Neutrophils # (A) 3.9 k/uL (1.3-7.7); Neutrophils % (A) 66 %; Platelet Count 267 k/uL (150-450); RBC 4.35 m/uL (4.30-5.90); RDW 12.2 % (11.5-15.5); WBC 5.9 k/uL (3.8-10.6)
[2019-01-24 11:32] LABS: Erythrocyte Sedimentation Rate 9 mm/hr (0-15)
[2019-01-24 18:33] LABS: African American GFR (CKD) 116.6 (60.0-200.0); Albumin 4.2 g/dL (3.80-4.90); Albumin/Globulin Ratio 1.75 (1.60-3.17); Anion Gap 6.8 mmol/L (4.00-12.00); BUN/Creat Ratio 13.75 Ratio (12.00-20.00); C Reactive Protein 0.8 mg/dL (0.0-0.8); Calcium 9.2 mg/dL (8.7-10.3); Carbon Dioxide 28.2 mmol/L (21.6-31.8); Globulin 2.4 g/dL (1.6-3.3); Potassium 4.5 mmol/L (3.5-5.5); Total Bilirubin 0.7 mg/dL (0.3-1.2); Total Protein 6.6 g/dL (6.2-8.2)
[2019-01-26 11:54] LABS: Gliadin AB IgA, Deaminated NEGATIVE (NEGATIVE); Gliadin AB IgG, Deaminated NEGATIVE (NEGATIVE)
== END | disposition home or self-care (01) ==
LOC: LABWHC1 09:53
PROVIDERS: ATTEND Internal Medicine
DX: R10.9 Unspecified abdominal pain (principal)
CPT/HCPCS: 36415; 80053; 82150; 83516; 83690; 83993; 85025; 85652; 86140

== ENCOUNTER 2019-03-24 11:14 | Emergency (ER) | payer BC ==
[2019-03-24] MEDS ORDERED: PANTOPRAZOLE 40 MG/10 ML VIAL IVP STA (11:52)
[2019-03-24] MEDS ORDERED: SODIUM CHLORIDE 0.9% 1,000 ML IV STA ×2 (11:52)
[2019-03-24] MEDS ORDERED: KETOROLAC 30 MG/ML 1 ML VIAL IVP STA (11:52)
--- NOTE | 2019-03-24 12:18 | ED ---
Abdominal Pain HPI - General Chief Complaint: Abdominal Pain Stated Complaint: abdominal pain Time Seen by Provider: 03/24/19 11:37 Source: patient, RN notes reviewed, old records reviewed Mode of arrival: ambulatory Limitations: no limitations - History of Present Illness Initial Comments: Patient is a pleasant 54-year-old male. History of IBS and colitis. He presents emergency department today for evaluation for concern for diffuse abdominal pain for the past 5 days. He reports it seems to be cramping in nature. Patient denies any fevers or chills. He states that he's had normal bowel movements past few days. He did report some mild dysuria this morning. He states that he was hospitalized in August for similar complaints. At that time he had an upper GI and a colonoscopy. He was previously diagnosed with diverticulosis. - Related Data Home Medications Medication Instructions Recorded Confirmed Multivitamins, Thera [Multivitamin 1 tab PO DAILY 09/28/18 11/04/18 (formulary)] Previous Rx's Medication Instructions Recorded Pantoprazole [Protonix] 40 mg PO DAILY #30 tab 10/01/18 Amoxic-Pot Clav 875-125Mg 1 tab PO Q12HR #14 tablet 03/24/19 [Augmentin 875-125] Allergies Allergy/AdvReac Type Severity Reaction Status Date / Time No Known Allergies Allergy Verified 11/07/18 10:08 Review of Systems ROS Statement: Those systems with pertinent positive or pertinent negative responses have been documented in the HPI. ROS Other: All systems not noted in ROS Statement are negative. Past Medical History Past Medical History: No Reported History Additional Past Medical History / Comment(s): colitis, abdominal pain, diverticulosis, IBS History of Any Multi-Drug Resistant Organisms: None Reported Past Surgical History: Hernia Repair, Orthopedic Surgery Additional Past Surgical History / Comment(s): 1997 right fibula spiral fracture-1 plate 10 screws placed (removed 2000), colonoscopy and endoscopy 2019 Past Anesthesia/Blood Transfusion Reactions: Motion Sickness, Postoperative Nausea & Vomiting (PONV) Past Psychological History: No Psychological Hx Reported Smoking Status: Former smoker Past Alcohol Use History: None Reported Past Drug Use History: None Reported - Past Family History Mother Family Medical History: Diabetes Mellitus Father Additional Family Medical History / Comment(s): patient states "cardiac issues" General Exam - General Exam Comments Initial Comments: Renuka 54-year-old male. Alert and oriented 3. No distress. Limitations: no limitations General appearance: alert, in no apparent distress Head exam: Present: atraumatic, normocephalic, normal inspection Eye exam: Present: normal appearance, PERRL, EOMI. Absent: scleral icterus, conjunctival injection, periorbital swelling ENT exam: Present: normal exam, mucous membranes moist Neck exam: Present: normal inspection. Absent: tenderness, meningismus, lymphadenopathy Respiratory exam: Present: normal lung sounds bilaterally. Absent: respiratory distress, wheezes, rales, rhonchi, stridor Cardiovascular Exam: Present: regular rate, normal rhythm, normal heart sounds. Absent: systolic murmur, diastolic murmur, rubs, gallop, clicks GI/Abdominal exam: Present: soft, normal bowel sounds. Absent: distended, tenderness, guarding, rebound, rigid Extremities exam: Present: normal inspection, full ROM, normal capillary refill. Absent: tenderness, pedal edema, joint swelling, calf tenderness Back exam: Present: normal inspection Neurological exam: Present: alert, oriented X3, CN II-XII intact Course Vital Signs 03/24/19 11:30 Temperature 98.1 F Pulse Rate 57 L Respiratory 18 Rate Blood Pressure 132/63 O2 Sat by Pulse 98 Oximetry Medical Decision Making - Medical Decision Making 54-year-old male presents today for evaluation for concern for diffuse abdominal pain, crampy in nature for the past 5 days. The same Patient has no fevers. IV was established other history is unremarkable. Due to diffuse tenderness CT was ordered. There is evidence of some concern for enterocolitis. Patient will be treated this time with Augmentin. Discussed that Patient can follow-up with her primary care doctor or GI specialty. Discussed bland diet and probiotic use. Patient's were answered. Patient was resting completely better after Toradol and Zofran. Discussed case with Dr. Gagnon - Lab Data Result diagrams: 03/24/19 12:12 03/24/19 12:12 Lab Results 03/24/19 03/24/19 03/24/19 Range/Units 12:12 12:12 12:12 WBC 9.0 (3.8-10.6) k/uL RBC 4.17 L (4.30-5.90) m/uL Hgb 13.7 (13.0-17.5) gm/dL Hct 39.1 (39.0-53.0) % MCV 93.6 (80.0-100.0) fL MCH 32.8 (25.0-35.0) pg MCHC 35.1 (31.0-37.0) g/dL RDW 11.6 (11.5-15.5) % Plt Count 209 (150-450) k/uL Neutrophils % 79 % Lymphocytes % 12 % Monocytes % 7 % Eosinophils % 1 % Basophils % 0 % Neutrophils # 7.1 (1.3-7.7) k/uL Lymphocytes # 1.1 (1.0-4.8) k/uL Monocytes # 0.6 (0-1.0) k/uL Eosinophils # 0.1 (0-0.7) k/uL Basophils # 0.0 (0-0.2) k/uL PT 9.8 (9.0-12.0) sec INR 0.9 (<1.2) APTT 25.5 (22.0-30.0) sec Sodium 136 L (137-145) mmol/L Potassium 4.2 (3.5-5.1) mmol/L Chloride 100 (98-107) mmol/L Carbon Dioxide 25 (22-30) mmol/L Anion Gap 11 mmol/L BUN 20 (9-20) mg/dL Creatinine 0.62 L (0.66-1.25) mg/dL Est GFR (CKD-EPI)AfAm >90 (>60 ml/min/1.73 sqM) Est GFR (CKD-EPI)NonAf >90 (>60 ml/min/1.73 sqM) Glucose 88 (74-99) mg/dL Calcium 9.2 (8.4-10.2) mg/dL Total Bilirubin 0.9 (0.2-1.3) mg/dL AST 21 (17-59) U/L ALT 13 (4-49) U/L Alkaline Phosphatase 59 (38-126) U/L Total Protein 7.0 (6.3-8.2) g/dL Albumin 3.8 (3.5-5.0) g/dL Amylase 69 (30-110) U/L Lipase 107 (23-300) U/L Urine Color Urine Appearance (Clear) Urine pH (5.0-8.0) Ur Specific [place] (1.001-1.035) Urine Protein (Negative) Urine Glucose (UA) (Negative) Urine Ketones (Negative) Urine Blood (Negative) Urine Nitrite (Negative) Urine Bilirubin (Negative) Urine Urobilinogen (<2.0) mg/dL Ur Leukocyte Esterase (Negative) 03/24/19 Range/Units 12:12 WBC (3.8-10.6) k/uL RBC (4.30-5.90) m/uL Hgb (13.0-17.5) gm/dL Hct (39.0-53.0) % MCV (80.0-100.0) fL MCH (25.0-35.0) pg MCHC (31.0-37.0) g/dL RDW (11.5-15.5) % Plt Count (150-450) k/uL Neutrophils % % Lymphocytes % % Monocytes % % Eosinophils % % Basophils % % Neutrophils # (1.3-7.7) k/uL Lymphocytes # (1.0-4.8) k/uL Monocytes # (0-1.0) k/uL Eosinophils # (0-0.7) k/uL Basophils # (0-0.2) k/uL PT (9.0-12.0) sec INR (<1.2) APTT (22.0-30.0) sec Sodium (137-145) mmol/L Potassium (3.5-5.1) mmol/L Chloride (98-107) mmol/L Carbon Dioxide (22-30) mmol/L Anion Gap mmol/L BUN (9-20) mg/dL Creatinine (0.66-1.25) mg/dL Est GFR (CKD-EPI)AfAm (>60 ml/min/1.73 sqM) Est GFR (CKD-EPI)NonAf (>60 ml/min/1.73 sqM) Glucose (74-99) mg/dL Calcium (8.4-10.2) mg/dL Total Bilirubin (0.2-1.3) mg/dL AST (17-59) U/L ALT (4-49) U/L Alkaline Phosphatase (38-126) U/L Total Protein (6.3-8.2) g/dL Albumin (3.5-5.0) g/dL Amylase (30-110) U/L Lipase (23-300) U/L Urine Color Yellow Urine Appearance Clear (Clear) Urine pH 6.0 (5.0-8.0) Ur Specific [place] 1.026 (1.001-1.035) Urine Protein Trace H (Negative) Urine Glucose (UA) Negative (Negative) Urine Ketones 3+ H (Negative) Urine Blood Negative (Negative) Urine Nitrite Negative (Negative) Urine Bilirubin Negative (Negative) Urine Urobilinogen <2.0 (<2.0) mg/dL Ur Leukocyte Esterase Negative (Negative) - Radiology Data Radiology results: report reviewed CT shows suboptimal study but enterocolitis is strongly suspected levels pelvis with L-spine fluid and fat stranding blurring the normal fatty planes. Along with black ventricular contrast her abdominal fat makes evaluation suboptimal. Suspect reactive cystitis. Correlate clinically to exclude bladder infection as primary source. Disposition Clinical Impression: Colitis Disposition: HOME SELF-CARE Condition: Good Instructions (If sedation given, give patient instructions): Colitis (ED) Additional Instructions: Take the medication as prescribed. Follow-up with primary care doctor. Patient should rest, remain hydrated. can use probiotic medication or yogurt to help when taking antibiotic. Prescriptions: Amoxic-Pot Clav 875-125Mg [Augmentin 875-125] 1 tab PO Q12HR #14 tablet Is patient prescribed a controlled substance at d/c from ED?: No Referrals: Zen Parsons MD [Primary Care Provider] - 1-2 days Time of Disposition: 14:24
[2019-03-24 12:35] LABS: Basophils % (A) 0 %; Eosinophils # (A) 0.1 k/uL (0-0.7); Eosinophils % (A) 1 %; HCT 39.1 % (39.0-53.0); HGB 13.7 gm/dL (13.0-17.5); Lymphocytes # (A) 1.1 k/uL (1.0-4.8); Lymphocytes % (A) 12 %; MCH 32.8 pg (25.0-35.0); MCHC 35.1 g/dL (31.0-37.0); MCV 93.6 fL (80.0-100.0); Mean Platelet Volume 7.8; Monocytes # (A) 0.6 k/uL (0-1.0); Monocytes % (A) 7 %; Neutrophils # (A) 7.1 k/uL (1.3-7.7); Neutrophils % (A) 79 %; Platelet Count 209 k/uL (150-450); RBC 4.17 m/uL (4.30-5.90); RDW 11.6 % (11.5-15.5)
[2019-03-24 12:43] LABS: ALT 13 U/L (4-49); AST 21 U/L (17-59); African American GFR (CKD) >90 (>60 ml/min/1.73 sqM); Albumin 3.8 g/dL (3.5-5.0); Alkaline Phosphatase 59 U/L (38-126); Amylase 69 U/L (30-110); Anion Gap 11 mmol/L; Blood Urea Nitrogen 20 mg/dL (9-20); Calcium 9.2 mg/dL (8.4-10.2); Carbon Dioxide 25 mmol/L (22-30); Chloride 100 mmol/L (98-107); Glucose 88 mg/dL (74-99); INR 0.9 (<1.2); Non-African American GFR(CKD) >90 (>60 ml/min/1.73 sqM); Partial Thromboplastin Time 25.5 sec (22.0-30.0); Potassium 4.2 mmol/L (3.5-5.1); Prothrombin Time 9.8 sec (9.0-12.0); Sodium 136 mmol/L (137-145); Total Bilirubin 0.9 mg/dL (0.2-1.3)
[2019-03-24 12:47] LABS: Appearance,Urine Clear (Clear); Bilirubin,Urine Negative (Negative); Blood,Urine Negative (Negative); Color,Urine Yellow; Glucose,Urine (UA) Negative (Negative); Ketones,Urine 3+ (Negative); Leukocyte Esterase,Urine Negative (Negative); Nitrite,Urine Negative (Negative); Protein,Urine Trace (Negative); Specific Gravity,Urine 1.026 (1.001-1.035); Urobilinogen,Urine <2.0 mg/dL (<2.0)
--- NOTE | 2019-03-24 13:49 | CT ---
EXAMINATION TYPE: CT abdomen pelvis w con DATE OF EXAM: 03/24/2019 COMPARISON: CT abdomen and pelvis September 28, 2018.. HISTORY: Mid to upper abdominal pain, left lower quadrant pain for water. CT DLP: 571.5 mGycm, Automated Exposure Control for Dose Reduction was Utilized. CONTRAST: CT scan of the abdomen and pelvis is performed without oral but with IV Contrast, patient injected wi th 100 mL of Isovue 300. FINDINGS: LUNG BASES: Persistent left basilar linear scarring. Stable small pericardial effusion partially imag ed. LIVER/GB: No significant abnormality is appreciated. PANCREAS: No significant abnormality is seen. SPLEEN: No significant abnormality is seen. ADRENALS: No significant abnormality is seen. KIDNEYS: Symmetric cortical medullary uptake and excretion without hydronephrosis seen bilaterally bl adder shows [id number] concentric wall thickening up to 9 mm. BOWEL: Suboptimal evaluation bowel due to lack of enteric contrast and patient having virtually no in tra-abdominal fat. There is no suspicious small or large bowel dilatation. There is mild fluid throug hout the mesentery with blurring of fat planes greater on the right. There is suspected moderate wall thickening in the sigmoid colon. There is abnormal mucosal enhancement and wall thickening of small bowel loops in the pelvis. Lowering of normal fat planes makes evaluation also suboptimal. PROSTATE/SEMINAL VESICLES: No gross abnormality seen. LYMPH NODES: No greater than 1cm abdominal or pelvic lymph nodes are appreciated. OSSEOUS STRUCTURES: No significant abnormality is seen. OTHER: No significant additional abnormality is seen. IMPRESSION: Suboptimal study but a enterocolitis is strongly suspected at level of pelvis with ill-de fined fluid and fat stranding blurring normal fatty planes, this along with lack of enteric contrast and intra-abdominal fat makes evaluation suboptimal. Suspect reactive cystitis, correlate clinically to exclude bladder infection as primary source.
[2019-03-24] MEDS ORDERED: AMOXIC-POT CLAV 875MG STARTER 2 EACH TABLET PO STA (14:25)
[2019-03-24 15:38] VITALS: BP 125/85; PULSE 69; RESP 16; TEMP 98
== END 2019-03-24 15:20 | disposition home or self-care (01) ==
LOC: EC 11:14
DX: K52.9 Noninfective gastroenteritis and colitis, unspecified (principal); R30.0 Dysuria; Z87.891 Personal history of nicotine dependence; Z87.19 Personal history of other diseases of the digestive system
CPT/HCPCS: 36415; 80053; 82150; 83690; 85025; 85610; 85730; 81003; 74177; 99284; 96374; 96375; 96361 ×3; J1885; C9113; Q9967

== ENCOUNTER 2020-09-03 10:00 | Inpatient (IN) | payer BC ==
[2020-09-03] MEDS ORDERED: SODIUM CHLORIDE 0.9% 1,000 ML IV STA (10:21)
[2020-09-03] MEDS ORDERED: FAMOTIDINE 20 MG/2 ML VIAL IV STA (10:22)
[2020-09-03] MEDS ORDERED: MORPHINE SULFATE 4 MG/ML SYRINGE IVP STA ×2 (10:22→12:50)
[2020-09-03] MEDS ORDERED: ONDANSETRON 4 MG/2 ML VIAL IVP STA (10:22)
--- NOTE | 2020-09-03 10:28 | ED ---
Abdominal Pain HPI - General Chief Complaint: Abdominal Pain Stated Complaint: Abd pain Time Seen by Provider: 09/03/20 10:10 Source: patient Mode of arrival: ambulatory Limitations: no limitations - History of Present Illness Initial Comments: 55-year-old male with history of IBS and diverticulitis presents to emergency prompt with a chief complaint of abdominal pain. States the symptoms began about 8 days ago and is mostly located in his upper abdominal region, sharp in nature, comes and goes. Does not appear to be postprandial. Patient was con cerned for possible constipation and took magnesium citrate and now has diarrhea. He was concerned for diverticulitis so he change his diet to more of clear liquids but it is not helping his symptoms. Reports some nausea but denies any vomiting at this time. Denies any fevers or chills. Denies any chest pain or shortness of breath. Denies any infectious or obstructive urinary symptoms. - Related Data Home Medications Medication Instructions Recorded Confirmed Hyoscyamine Sulfate [Hyoscyamine 0.125 mg SL Q8H PRN 09/03/20 09/03/20 Sulfate SL] Ibgard 2 cap PO TID PRN 09/03/20 09/03/20 Multivit-Min/FA/Lycopen/Lutein 1 tab PO DAILY 09/03/20 09/03/20 [Centrum Silver Men Tablet] Allergies Allergy/AdvReac Type Severity Reaction Status Date / Time No Known Allergies Allergy Verified 09/03/20 12:35 Review of Systems ROS Statement: Those systems with pertinent positive or pertinent negative responses have been documented in the HPI. ROS Other: All systems not noted in ROS Statement are negative. Past Medical History Past Medical History: No Reported History Additional Past Medical History / Comment(s): colitis, abdominal pain, diverticulosis, IBS History of Any Multi-Drug Resistant Organisms: None Reported Past Surgical History: Hernia Repair, Orthopedic Surgery Additional Past Surgical History / Comment(s): 1997 right fibula spiral fracture-1 plate 10 screws placed (removed 2000), colonoscopy and endoscopy 2018 Past Anesthesia/Blood Transfusion Reactions: Motion Sickness, Postoperative Nausea & Vomiting (PONV) Past Psychological History: No Psychological Hx Reported Smoking Status: Current every day smoker Past Alcohol Use History: None Reported Past Drug Use History: None Reported - Past Family History Mother Family Medical History: Diabetes Mellitus Father Additional Family Medical History / Comment(s): patient states "cardiac issues" General Exam Limitations: no limitations General appearance: alert, in no apparent distress Head exam: Present: atraumatic, normocephalic, normal inspection Eye exam: Present: normal appearance, PERRL, EOMI Pupils: Present: normal accommodation ENT exam: Present: normal exam, normal oropharynx, mucous membranes dry, TM's normal bilaterally, normal external ear exam Neck exam: Present: normal inspection, full ROM. Absent: tenderness Respiratory exam: Present: normal lung sounds bilaterally. Absent: respiratory distress, wheezes, rales, rhonchi, stridor, chest wall tenderness, accessory muscle use Cardiovascular Exam: Present: regular rate, normal rhythm, normal heart sounds. Absent: systolic murmur GI/Abdominal exam: Present: soft, tenderness (Upper abdominal tenderness), guarding. Absent: distended, rebound, rigid Extremities exam: Present: normal inspection, full ROM, normal capillary refill. Absent: tenderness, pedal edema, joint swelling Back exam: Present: normal inspection, full ROM. Absent: tenderness, CVA tenderness (R), CVA tenderness (L), muscle spasm, paraspinal tenderness, vertebral tenderness Neurological exam: Present: alert, oriented X3 Psychiatric exam: Present: normal affect, normal mood Skin exam: Present: warm, dry, intact, normal color Course Vital Signs 09/03/20 09/03/20 10:03 13:03 Temperature 97.8 F 98.9 F Pulse Rate 68 51 L Respiratory 18 18 Rate Blood Pressure 134/78 136/69 O2 Sat by Pulse 97 96 Oximetry Medical Decision Making - Medical Decision Making 55-year-old male with history of IBS and diverticulitis presents to emergency prompt with a chief complaint of abdominal pain. On physical examination, upper abdominal tenderness. Leukocytosis of 19 K. CMP unremarkable. Lactic acid within normal limits. UA shows plus for ketones. CT of abdomen pelvis reveals acute inflammatory process involving the mesentery and what appears to be a distal small bowel loop resulting in a small bowel obstruction and mild free intraperitoneal fluid with no definitive free air. There is also gas within the liver. Patient denies recent endoscopic procedures. He was given IV fluids, antiemetics and analgesia. Dr. polanco was consulted and evaluated the patient who will be sent to the OR. Dr. Odell also examined the patient and is in agreement with the treatment plan. Patient will be started on Zosyn and blood cultures were obtained prior to that. - Lab Data Result diagrams: 09/03/20 10:39 09/03/20 10:39 Lab Results 09/03/20 09/03/20 09/03/20 Range/Units 10:39 10:39 10:39 WBC 19.9 H (3.8-10.6) k/uL RBC 4.96 (4.30-5.90) m/uL Hgb 15.9 (13.0-17.5) gm/dL Hct 47.7 (39.0-53.0) % MCV 96.3 (80.0-100.0) fL MCH 32.2 (25.0-35.0) pg MCHC 33.4 (31.0-37.0) g/dL RDW 12.4 (11.5-15.5) % Plt Count 255 (150-450) k/uL MPV 8.4 Neutrophils % 94 % Lymphocytes % 3 % Monocytes % 3 % Eosinophils % 0 % Basophils % 0 % Neutrophils # 18.6 H (1.3-7.7) k/uL Lymphocytes # 0.5 L (1.0-4.8) k/uL Monocytes # 0.6 (0-1.0) k/uL Eosinophils # 0.1 (0-0.7) k/uL Basophils # 0.0 (0-0.2) k/uL Sodium 135 L (137-145) mmol/L Potassium 4.6 (3.5-5.1) mmol/L Chloride 97 L (98-107) mmol/L Carbon Dioxide 24 (22-30) mmol/L Anion Gap 14 mmol/L BUN 18 (9-20) mg/dL Creatinine 0.69 (0.66-1.25) mg/dL Est GFR (CKD-EPI)AfAm >90 (>60 ml/min/1.73 sqM) Est GFR (CKD-EPI)NonAf >90 (>60 ml/min/1.73 sqM) Glucose 142 H (74-99) mg/dL Plasma Lactic Acid Juan (0.7-2.0) mmol/L Calcium 9.6 (8.4-10.2) mg/dL Total Bilirubin 0.9 (0.2-1.3) mg/dL AST 19 (17-59) U/L ALT 10 (4-49) U/L Alkaline Phosphatase 72 (38-126) U/L Total Protein 7.2 (6.3-8.2) g/dL Albumin 4.3 (3.5-5.0) g/dL Lipase 23 (23-300) U/L Urine Color Yellow Urine Appearance Cloudy (Clear) Urine pH 6.0 (5.0-8.0) Ur Specific [place] 1.028 (1.001-1.035) Urine Protein 1+ H (Negative) Urine Glucose (UA) Negative (Negative) Urine Ketones 4+ H (Negative) Urine Blood Negative (Negative) Urine Nitrite Negative (Negative) Urine Bilirubin 1+ H (Negative) Urine Urobilinogen 2.0 (<2.0) mg/dL Ur Leukocyte Esterase Negative (Negative) Urine RBC <1 (0-5) /hpf Urine WBC 1 (0-5) /hpf Ur Squamous Epith Cells 1 (0-4) /hpf Urine Mucus Many H (None) /hpf 09/03/20 Range/Units 12:41 WBC (3.8-10.6) k/uL RBC (4.30-5.90) m/uL Hgb (13.0-17.5) gm/dL Hct (39.0-53.0) % MCV (80.0-100.0) fL MCH (25.0-35.0) pg MCHC (31.0-37.0) g/dL RDW (11.5-15.5) % Plt Count (150-450) k/uL MPV Neutrophils % % Lymphocytes % % Monocytes % % Eosinophils % % Basophils % % Neutrophils # (1.3-7.7) k/uL Lymphocytes # (1.0-4.8) k/uL Monocytes # (0-1.0) k/uL Eosinophils # (0-0.7) k/uL Basophils # (0-0.2) k/uL Sodium (137-145) mmol/L Potassium (3.5-5.1) mmol/L Chloride (98-107) mmol/L Carbon Dioxide (22-30) mmol/L Anion Gap mmol/L BUN (9-20) mg/dL Creatinine (0.66-1.25) mg/dL Est GFR (CKD-EPI)AfAm (>60 ml/min/1.73 sqM) Est GFR (CKD-EPI)NonAf (>60 ml/min/1.73 sqM) Glucose (74-99) mg/dL Plasma Lactic Acid Juan 1.0 (0.7-2.0) mmol/L Calcium (8.4-10.2) mg/dL Total Bilirubin (0.2-1.3) mg/dL AST (17-59) U/L ALT (4-49) U/L Alkaline Phosphatase (38-126) U/L Total Protein (6.3-8.2) g/dL Albumin (3.5-5.0) g/dL Lipase (23-300) U/L Urine Color Urine Appearance (Clear) Urine pH (5.0-8.0) Ur Specific [place] (1.001-1.035) Urine Protein (Negative) Urine Glucose (UA) (Negative) Urine Ketones (Negative) Urine Blood (Negative) Urine Nitrite (Negative) Urine Bilirubin (Negative) Urine Urobilinogen (<2.0) mg/dL Ur Leukocyte Esterase (Negative) Urine RBC (0-5) /hpf Urine WBC (0-5) /hpf Ur Squamous Epith Cells (0-4) /hpf Urine Mucus (None) /hpf Disposition Clinical Impression: Small bowel obstruction, Acute abdomen Disposition: ADMITTED IP TO THIS HOSP Condition: Fair Is patient prescribed a controlled substance at d/c from ED?: No Referrals: Zen Parsons MD [Primary Care Provider] - 1-2 days Time of Disposition: 13:24
[2020-09-03 11:08] LABS: Basophils % (A) 0 %; Eosinophils # (A) 0.1 k/uL (0-0.7); Eosinophils % (A) 0 %; HCT 47.7 % (39.0-53.0); HGB 15.9 gm/dL (13.0-17.5); Lymphocytes # (A) 0.5 k/uL (1.0-4.8); Lymphocytes % (A) 3 %; MCH 32.2 pg (25.0-35.0); MCHC 33.4 g/dL (31.0-37.0); MCV 96.3 fL (80.0-100.0); Mean Platelet Volume 8.4; Monocytes # (A) 0.6 k/uL (0-1.0); Monocytes % (A) 3 %; Neutrophils # (A) 18.6 k/uL (1.3-7.7); Neutrophils % (A) 94 %; Platelet Count 255 k/uL (150-450); RBC 4.96 m/uL (4.30-5.90); RDW 12.4 % (11.5-15.5); WBC 19.9 k/uL (3.8-10.6)
[2020-09-03 11:24] LABS: ALT 10 U/L (4-49); AST 19 U/L (17-59); African American GFR (CKD) >90 (>60 ml/min/1.73 sqM); Albumin 4.3 g/dL (3.5-5.0); Alkaline Phosphatase 72 U/L (38-126); Anion Gap 14 mmol/L; Blood Urea Nitrogen 18 mg/dL (9-20); Calcium 9.6 mg/dL (8.4-10.2); Carbon Dioxide 24 mmol/L (22-30); Chloride 97 mmol/L (98-107); Glucose 142 mg/dL (74-99); Lipase 23 U/L (23-300); Non-African American GFR(CKD) >90 (>60 ml/min/1.73 sqM); Potassium 4.6 mmol/L (3.5-5.1); Sodium 135 mmol/L (137-145); Total Bilirubin 0.9 mg/dL (0.2-1.3); Total Protein 7.2 g/dL (6.3-8.2)
[2020-09-03 11:39] LABS: Appearance,Urine Cloudy (Clear); Bilirubin,Urine 1+ (Negative); Blood,Urine Negative (Negative); Color,Urine Yellow; Glucose,Urine (UA) Negative (Negative); Ketones,Urine 4+ (Negative); Leukocyte Esterase,Urine Negative (Negative); Mucus,Urine Many /hpf; Nitrite,Urine Negative (Negative); Protein,Urine 1+ (Negative); RBC,Urine <1 /hpf (0-5); Specific Gravity,Urine 1.028 (1.001-1.035); Squamous Epithelial Cell,Urine 1 /hpf (0-4); WBC,Urine 1 /hpf (0-5)
--- NOTE | 2020-09-03 12:00 | CT ---
EXAMINATION TYPE: CT abdomen pelvis w con DATE OF EXAM: 09/03/2020 COMPARISON: 03/24/2019 HISTORY: epigastric abdominal pain CT DLP: 597.3 mGycm Automated exposure control for dose reduction was used. TECHNIQUE: Helical acquisition of images was performed from the lung bases through the pelvis. CONTRAST: Performed without Oral Contrast and with IV Contrast, patient injected with 100 mL of Isovue 300. FINDINGS: Visualized lung bases are clear. The gallbladder is normal and there is no biliary ductal dilatation. There is gas within numerous mil d ex in the dome of the liver. No focal masses are seen within the liver pancreas spleen or adrenal glands. The kidneys excrete contrast promptly and symmetrically and there is no solid renal mass or hydroneph rosis. There is no retroperitoneal adenopathy or hemorrhage in the caliber of the abdominal aorta is normal. There is small amount of free intraperitoneal fluid. There is a distal small bowel obstruction with m ultiple air and fluid-filled dilated loops of small bowel. The transition point to normal small bowel is in the mid the left aspect of the pelvis were multiple bowel loops are seen with edema and thicke britany stone of bowel loops most likely consistent with inflammation. No discrete abscess is seen There is diffuse inflammatory changes within the mesentery particularly in the right paracolic gutter region. IMPRESSION: Acute inflammatory process involving the mesentery and what appear to be distal small bowel loops res ulting in a small bowel obstruction and mild free intraperitoneal fluid but no definite free intraper itoneal air. There is gas within the liver which appears to be within multiple small bile ducts. This raises the question of recent endoscopy with instrumentation. Clinical correlation is recommended
[2020-09-03] MEDS ORDERED: PIPERACILLIN-TAZOBACTAM 3.375 GM in SODIUM CHLORIDE 0.9% 100 ML IVPB STA (12:16)
[2020-09-03] MEDS ORDERED: NALOXONE 0.4 MG/ML 1 ML VIAL IV PRN ×2 (13:01→16:26)
--- NOTE | 2020-09-03 13:20 | P.GSHP ---
History of Present Illness H&P Date: 09/03/20 Is a 55-year-old male who presented to the emergency department with chief complaint of abdominal pain. He states the pain been worse over the last 2 days however he was having intermittent pain and difficulty with bowel movements over the last 2 weeks. He states over the last 2 years at 30 pound weight loss and was diagnosed with IBS. He was seen spool sorter at that time. He denies any history of Crohn's colitis he denies any family history of Crohn's colitis. He states that he occasionally has some small amount of blood in his stool but he has not had any recently. He denies any fevers or chills he denies any other illnesses at this time. On CAT scan patient had findings consistent with portal venous gas free fluid within the abdomen and discussion was had with the radiologist about possible small amounts of extraluminal air there was thickened and inflamed small bowel in the pelvis. He denies any past abdominal surgical history is had 2 inguinal hernia repairs in the past. Past Medical History Past Medical History: No Reported History Additional Past Medical History / Comment(s): colitis, abdominal pain, diverticulosis, IBS History of Any Multi-Drug Resistant Organisms: None Reported Past Surgical History: Hernia Repair, Orthopedic Surgery Additional Past Surgical History / Comment(s): 1997 right fibula spiral fracture-1 plate 10 screws placed (removed 2000), colonoscopy and endoscopy 2018 Past Anesthesia/Blood Transfusion Reactions: Motion Sickness, Postoperative Nausea & Vomiting (PONV) Past Psychological History: No Psychological Hx Reported Smoking Status: Current every day smoker Past Alcohol Use History: None Reported Past Drug Use History: None Reported - Past Family History Mother Family Medical History: Diabetes Mellitus Father Additional Family Medical History / Comment(s): patient states "cardiac issues" Medications and Allergies Home Medications Medication Instructions Recorded Confirmed Type Hyoscyamine Sulfate [Hyoscyamine 0.125 mg SL Q8H PRN 09/03/20 09/03/20 History Sulfate SL] Ibgard 2 cap PO TID PRN 09/03/20 09/03/20 History Multivit-Min/FA/Lycopen/Lutein 1 tab PO DAILY 09/03/20 09/03/20 History [Centrum Silver Men Tablet] Allergies Allergy/AdvReac Type Severity Reaction Status Date / Time No Known Allergies Allergy Verified 09/03/20 12:35 Surgical - Exam Osteopathic Statement: *. No significant issues noted on an osteopathic structural exam other than those noted in the History and Physical/Consult. Vital Signs Temp Pulse Resp BP Pulse Ox 97.8 F 68 18 134/78 97 09/03/20 10:03 09/03/20 10:03 09/03/20 10:03 09/03/20 10:03 09/03/20 10:03 - General well developed, well nourished, no distress - Eyes PERRL - Neck no masses, trachea midline - Cardiovascular Rhythm: regular - Abdomen Rigid with involuntary guarding. Peritoneal - Neurologic normal coordination, normal sensation - Psychiatric oriented to time, oriented to person, oriented to place Results - Labs 09/03/20 10:39 09/03/20 10:39 Abnormal Lab Results - Last 24 Hours (Table) 09/03/20 09/03/20 09/03/20 Range/Units 10:39 10:39 10:39 WBC 19.9 H (3.8-10.6) k/uL Neutrophils # 18.6 H (1.3-7.7) k/uL Lymphocytes # 0.5 L (1.0-4.8) k/uL Sodium 135 L (137-145) mmol/L Chloride 97 L (98-107) mmol/L Glucose 142 H (74-99) mg/dL Urine Protein 1+ H (Negative) Urine Ketones 4+ H (Negative) Urine Bilirubin 1+ H (Negative) Urine Mucus Many H (None) /hpf Diabetes panel 09/03/20 Range/Units 10:39 Sodium 135 L (137-145) mmol/L Potassium 4.6 (3.5-5.1) mmol/L Chloride 97 L (98-107) mmol/L Carbon Dioxide 24 (22-30) mmol/L BUN 18 (9-20) mg/dL Creatinine 0.69 (0.66-1.25) mg/dL Glucose 142 H (74-99) mg/dL Calcium 9.6 (8.4-10.2) mg/dL AST 19 (17-59) U/L ALT 10 (4-49) U/L Alkaline Phosphatase 72 (38-126) U/L Total Protein 7.2 (6.3-8.2) g/dL Albumin 4.3 (3.5-5.0) g/dL Calcium panel 09/03/20 Range/Units 10:39 Calcium 9.6 (8.4-10.2) mg/dL Albumin 4.3 (3.5-5.0) g/dL Pituitary panel 09/03/20 Range/Units 10:39 Sodium 135 L (137-145) mmol/L Potassium 4.6 (3.5-5.1) mmol/L Chloride 97 L (98-107) mmol/L Carbon Dioxide 24 (22-30) mmol/L BUN 18 (9-20) mg/dL Creatinine 0.69 (0.66-1.25) mg/dL Glucose 142 H (74-99) mg/dL Calcium 9.6 (8.4-10.2) mg/dL Adrenal panel 09/03/20 Range/Units 10:39 Sodium 135 L (137-145) mmol/L Potassium 4.6 (3.5-5.1) mmol/L Chloride 97 L (98-107) mmol/L Carbon Dioxide 24 (22-30) mmol/L BUN 18 (9-20) mg/dL Creatinine 0.69 (0.66-1.25) mg/dL Glucose 142 H (74-99) mg/dL Calcium 9.6 (8.4-10.2) mg/dL Total Bilirubin 0.9 (0.2-1.3) mg/dL AST 19 (17-59) U/L ALT 10 (4-49) U/L Alkaline Phosphatase 72 (38-126) U/L Total Protein 7.2 (6.3-8.2) g/dL Albumin 4.3 (3.5-5.0) g/dL Assessment and Plan Assessment: Acute abdomen Portal venous gas Enteritis questionable Crohn's Plan: Patient has an acute abdomen with involuntary guarding and portal venous gas seen on CT. I suspect this is an exacerbation of undiagnosed Crohn's. I discussed with the patient these findings and recommended diagnostic laparoscopy possible exploratory laparotomy possible bowel resection possible ostomy. Risks benefits and alternatives to this were discussed with the patient he stated he understood agreed and consented. If patient does not have any necrotic or bowel we will be able to close and treat him medically. He'll be started on IV antibiotics kept nothing by mouth IV fluids. Internal medicine and GI consult. Further recommendations to follow surgery
[2020-09-03] MEDS ORDERED: PROPOFOL 10 MG/ML 20 ML VIAL IV ONE (13:50)
[2020-09-03] MEDS ORDERED: KETOROLAC 15 MG/ML 1 ML VIAL ONE (13:50)
[2020-09-03] MEDS ORDERED: SUCCINYLCHOLINE CHLORIDE 100 MG/5 ML SYR IV ONE (13:50)
[2020-09-03] MEDS ORDERED: HYDROmorphone (PF) 1 MG/ML ONE (13:50)
[2020-09-03] MEDS ORDERED: fentaNYL (PF) 50 MCG/ML 2 ML AMP ONE (13:50)
[2020-09-03] MEDS ORDERED: MIDAZOLAM 2 MG/2 ML VIAL ONE (13:50)
[2020-09-03] MEDS ORDERED: ROCURONIUM 10 MG/ML (5 ML VIAL) IV ONE (13:50)
[2020-09-03] MEDS ORDERED: NEOSTIGMINE 1 MG/ML 10 ML VIAL ONE (13:50)
[2020-09-03] MEDS ORDERED: GLYCOPYRROLATE 0.2 MG/ML 2 ML VIAL ONE (13:50)
[2020-09-03] MEDS ORDERED: LACTATED RINGERS 1,000 ML IV ONE ×2 (13:54→14:56)
[2020-09-03] MEDS ORDERED: BUPIVACAINE (PF) 0.5% 30 ML VIAL SQ ONE ×3 (14:20→14:21)
[2020-09-03] MEDS ORDERED: TEMAZEPAM 15 MG CAP PO PRN (15:15)
[2020-09-03] MEDS ORDERED: ALPRAZolam 0.25 MG TAB PO PRN (15:15)
[2020-09-03] MEDS ORDERED: ONDANSETRON 4 MG/2 ML VIAL IVP PRN (16:26)
--- NOTE | 2020-09-03 16:26 | P.OP ---
Date of Procedure: 09/03/20 Preoperative Diagnosis: Acute abdomen Portal venous gas Enteritis Postoperative Diagnosis: Intra-abdominal abscess Suspect perforated appendix or perforated terminal ileum Procedure(s) Performed: Diagnostic laparoscopy converted to exploratory laparotomy with ileocecectomy and washout Anesthesia: SULAIMAN Surgeon: Ralph Bolden Estimated Blood Loss (ml): 100 Condition: stable Disposition: PACU Description of Procedure: Patient is brought operative suite remained in supine position underwent general endotracheal anesthesia per Department of anesthesia prepped and draped in usual sterile fashion timeout performed correct patient correct procedure correct site was verified. A 5 mm incision was made at [facility] point using a Visiport the abdomen was entered under direct visualization and insufflated. No injuries were noted there was some dark bilious looking fluid above the liver. This was suctioned 2 more 5 mm ports were placed in the right abdomen patient was placed in Trendelenburg and small bowel was attempted to be run there was dense adhesions and abscess in the pelvis. Decision was made to make a lower midline incision removed the laparoscopic ports and converted open. Incision was made carried down the fascia which was incised under direct visualization small bowel was run from the ligament of Treitz to the terminal ileum where there was dense adhesions down in the pelvis. The appendix was within these adhesions the base of the appendix was clear an appendectomy was performed and initially thought to be the cause of this there was a section of terminal ileum approximately 4 inches from the ileocecal valve and extending another 8 inches of nonviable bowel. This was brought up into the surgical field after the adhesions were taken down and surrounding abscess was cleaned out. Decision at this time was made to perform ileocecectomy as there was not enough healthy terminal ileum left to create a small bowel anastomosis. The right colon was freed up along the white line of Toldt and using a LigaSure the mesentery was taken down around the cecum and a 60 mm Endo DEREK stapler was used to staple across the cecum the LigaSure device was used to take down the mesentery of the small bowel and terminal ileum to a healthy portion of terminal ileum and a 60 mm stapler purple load was used to staple across the small bowel specimen was passed off and then a side to side functional end to end anastomosis was created between the right colon and the small bowel. This was done with a 60 mm purple load Endo DEREK stapler to create the common enterotomy followed by 60 mm TX linear stapler this was then oversewn with 3-0 Vicryl sutures in a crotch stitch was placed with 3-0 Vicryl suture. The area was copiously irrigated all 4 quadrants were irrigated with greater than 2 L of saline until clear. VIRGINIE drain was placed in the right lower quadrant near the anastomosis and the abdomen was closed the fascia was closed with looped PDS sutures all sponge and needle counts were correct the skin was stapled and a 5 port incisions were stapled sterile dressing was applied the VIRGINIE drain was sutured in place with 3-0 nylon suture. Patient tolerated the procedure well there are no apparent complications
[2020-09-03] MEDS: LACTATED RINGERS 1,000 ML IV SCH (18:03)
[2020-09-03] MEDS: KETOROLAC 15 MG/ML 1 ML VIAL IVP SCH (18:04)
[2020-09-03] MEDS: METOCLOPRAMIDE 5 MG/ML 2 ML VIAL IVP SCH ×2 (18:04→22:26)
[2020-09-03] MEDS: PANTOPRAZOLE 40 MG/10 ML VIAL IVP SCH (18:04)
--- NOTE | 2020-09-03 18:10 | CONS ---
CONSULTATION DATE OF SERVICE: 09/03/2020 REASON FOR CONSULTATION: Advice regarding colitis and other medical issues, requested by Dr. Bolden. HISTORY OF PRESENT ILLNESS: This 55-year-old gentleman with a past medical history of colitis, abdominal pain, irritable bowel syndrome, history of fibular spiral fracture, being followed Dr. Parsons in the outpatient setting was previously admitted with acute diffuse colitis. Biopsy at that time showed tubular adenoma. The patient is complaining of abdominal pain for the last several days which is intermittent. The patient has had some difficulty bowel movements also for the last 2 weeks. The patient also has some loss of weight, but there is not much diarrhea. The patient also noted some minimal amount of blood. The patient came to [facility] and abdominal pelvis CT scan was done which showed evidence of acute inflammatory process involving the mesentery and what appears to be distal small bowel loops resulting in a small bowel obstruction with mild free intraperitoneal fluid, but no definite intraperitoneal air. Gas within the liver was also noted. The possibility of small-bowel ischemia was also raised by the radiologist. Dr. Bolden is planning surgery at this time. There is no history of fevers, rigors. No headache, no seizures. PAST MEDICAL HISTORY: Colitis, abdominal pain, hernia repair, history of DJD, history of diffuse colitis, fibular spiral fracture. MEDICATIONS: Hyoscine, multivitamins. ALLERGIES: None. FAMILY HISTORY: History of diabetes mellitus, cardiac issues. SOCIAL HISTORY: Previous history of smoking. Occasional alcohol intake. REVIEW OF SYSTEMS: ENT: No diminished vision. CARDIOVASCULAR: No angina. RESPIRATORY: No cough. GI: As mentioned earlier. : No dysuria. NERVOUS SYSTEM: No numbness or weakness. ALLERGY/IMMUNOLOGY: No asthma or hay fever. MUSCULOSKELETAL: As mentioned earlier. HEMATOLOGY: No history of anemia. ENDOCRINE: No history of diabetes or hypothyroidism. CONSTITUTIONAL: As mentioned. DERMATOLOGY: Negative. PHYSICAL EXAM: Pulse 68, blood pressure 130/70, respirations 18, temperature 97.8, pulse ox 97% on room air. HEENT: Conjunctivae normal. NECK: No JVD. CARDIOVASCULAR: S1 and S2 normal. LUNGS: Breath sounds diminished at the bases. No rhonchi. ABDOMEN: Soft, mild diffuse tenderness. No guarding or rigidity. No distention. Bowel sounds diminished. EXTREMITIES: Legs no edema, no swelling. NERVOUS SYSTEM: Higher functions as mentioned earlier. Moves all 4 limbs. No focal motor or sensory deficit. LYMPHATICS: No lymph nodes. SKIN: no ulcers. JOINTS: No active deformities. LABS: WBC 9.9, sodium 135. CT scan reviewed. ASSESSMENT: 1. Acute abdomen with portal venous gas, possibly enteritis, possibly Crohn's disease, acute exacerbation, rule out perforation. 2. Rule out ischemic colitis. 3. Increased WBC. 4. Hyponatremia. 5. Increased random blood sugar. 6. History of IBS. 7. History of hernia repair. 8. History of DJD. 9. History of fibular spiral fracture. 10.History of nicotine dependence. 11.FULL CODE. 12.Mild protein calorie malnutrition with body mass index of 19.8. RECOMMENDATIONS: This 55-year-old gentleman who presented with multiple complex medical issues, at this time I recommend to continue the current medications Dr. Bolden is planning surgery at this time. I recommend broad-spectrum coverage with antibiotics and CBC, BMP, sedimentation rate and CRP also will be requested. Otherwise, the exact etiology of the colitis or small bowel obstruction is unknown at this time. The Crohn disease is most likely possibility. Diagnostic laparoscopy and further surgery if needed is being considered by Dr. Bolden. Prognosis guarded. Further recommendations to follow. Discussed with the patient who understands and agrees. The patient's previous cardiovascular fitness appears to be excellent. Further recommendations to follow. MMODL / IJN: [id number] /
[2020-09-03] MEDS: HEPARIN SODIUM,PORCINE/PF 5,000 UNIT/0.5 ML SYRINGE SQ SCH (20:59)
[2020-09-03] MEDS: HYDROmorphone 0.5 MG/0.5 ML SYRINGE IVP PRN (20:59)
[2020-09-03] MEDS: PIPERACILLIN-TAZOBACTAM 3.375 GM in SODIUM CHLORIDE 0.9% 100 ML IVPB SCH (21:00)
[2020-09-04] MEDS: KETOROLAC 15 MG/ML 1 ML VIAL IVP SCH ×4 (00:04→17:25)
[2020-09-04] MEDS: LACTATED RINGERS 1,000 ML IV SCH ×4 (00:06→21:26)
[2020-09-04] MEDS: HYDROmorphone 0.5 MG/0.5 ML SYRINGE IVP PRN ×4 (02:40→21:26)
[2020-09-04] MEDS: PIPERACILLIN-TAZOBACTAM 3.375 GM in SODIUM CHLORIDE 0.9% 100 ML IVPB SCH ×3 (05:10→21:25)
[2020-09-04] MEDS: METOCLOPRAMIDE 5 MG/ML 2 ML VIAL IVP SCH ×4 (05:11→21:30)
[2020-09-04] MEDS: HEPARIN SODIUM,PORCINE/PF 5,000 UNIT/0.5 ML SYRINGE SQ SCH ×2 (07:27→21:25)
[2020-09-04] MEDS: PANTOPRAZOLE 40 MG/10 ML VIAL IVP SCH (07:28)
[2020-09-04 12:25] LABS: Basophils # (A) 0.02 X 10*3/uL (0.00-0.10); Basophils % (A) 0.2 %; Eosinophils # (A) 0.01 X 10*3/uL (0.04-0.35); Eosinophils % (A) 0.1 %; HCT 40.8 % (39.6-50.0); HGB 13.9 g/dL (13.0-17.0); Lymphocytes # (A) 1.03 X 10*3/uL (0.90-5.00); Lymphocytes % (A) 8.2 %; MCH 32.3 pg (27.0-32.0); MCHC 34.1 g/dL (32.0-37.0); MCV 94.7 fL (80.0-97.0); Mean Platelet Volume 11.8 fL (9.5-12.2); Monocytes # (A) 1.07 X 10*3/uL (0.20-1.00); Monocytes % (A) 8.6 %; Neutrophils # (A) 10.31 X 10*3/uL (1.80-7.70); Neutrophils % (A) 82.3 %; Platelet Count 248 X 10*3/uL (140-440); RBC 4.31 X 10*6/uL (4.40-5.60); RDW 11.7 % (11.5-14.5); WBC 12.51 X 10*3/uL (4.50-10.00)
[2020-09-04 12:47] LABS: African American GFR (CKD) 121.4 (60.0-200.0); Anion Gap 8.6 mmol/L (4.00-12.00); BUN/Creat Ratio 34.29 Ratio (12.00-20.00); Carbon Dioxide 24.4 mmol/L (21.6-31.8); Non-African American GFR(CKD) 104.8 (60.0-200.0); Potassium 4.8 mmol/L (3.5-5.5)
--- NOTE | 2020-09-04 14:19 | P.PN ---
Subjective Progress Note Date: 09/04/20 Patient is feeling well, pain controlled, no acute events overnight Objective - Vital Signs Vital signs: Vital Signs Temp 98.4 F 09/04/20 07:59 Pulse 52 L 09/04/20 07:59 Resp 16 09/04/20 07:59 BP 136/63 09/04/20 07:59 Pulse Ox 96 09/04/20 07:59 Intake & Output 09/03/20 09/04/20 09/04/20 18:59 06:59 18:59 Intake Total 1600 Output Total 500 655 60 Balance 1100 -655 -60 Weight 58.967 kg Intake: IV 1600 Output: Drainage 380 60 Anterior Abdomen 380 60 Urine 200 275 Estimated Blood Loss 300 Other: Voiding Method Indwelling Catheter - Constitutional General appearance: Present: cooperative - Cardiovascular Rhythm: regular - Gastrointestinal Gastrointestinal Comment(s): S/ND Incision CDI VIRGINIE serosang - Labs CBC & Chem 7: 09/04/20 06:56 09/04/20 06:56 Labs: Abnormal Lab Results - Last 24 Hours (Table) 09/03/20 09/03/20 09/04/20 Range/Units 10:39 10:39 06:56 WBC 12.51 H (4.50-10.00) X 10*3/uL RBC 4.31 L (4.40-5.60) X 10*6/uL MCH 32.3 H (27.0-32.0) pg Immature Gran # 0.07 H (0.00-0.04) X 10*3/uL Neutrophils # 10.31 H (1.80-7.70) X 10*3/uL Monocytes # 1.07 H (0.20-1.00) X 10*3/uL Eosinophils # 0.01 L (0.04-0.35) X 10*3/uL ESR 23 H (0-15) mm/hr BUN/Creatinine Ratio (12.00-20.00) Ratio Glucose (70-110) mg/dL Calcium (8.7-10.3) mg/dL C-Reactive Protein 17.0 H (<1.0) mg/dL 09/04/20 Range/Units 06:56 WBC (4.50-10.00) X 10*3/uL RBC (4.40-5.60) X 10*6/uL MCH (27.0-32.0) pg Immature Gran # (0.00-0.04) X 10*3/uL Neutrophils # (1.80-7.70) X 10*3/uL Monocytes # (0.20-1.00) X 10*3/uL Eosinophils # (0.04-0.35) X 10*3/uL ESR (0-15) mm/hr BUN/Creatinine Ratio 34.29 H (12.00-20.00) Ratio Glucose 111 H (70-110) mg/dL Calcium 8.0 L (8.7-10.3) mg/dL C-Reactive Protein (<1.0) mg/dL Microbiology - Last 24 Hours (Table) 09/03/20 16:04 Wound Culture - Preliminary Other - Other 09/03/20 16:04 Anaerobic Culture - Preliminary Peritoneal Fluid Assessment and Plan Assessment: POD1 ileocecectomy Plan: Continue NPO/NGT until return of bowel function. Pain control, IS, SQ hepari. Ambulate in halls.
--- NOTE | 2020-09-04 21:30 | PN ---
PROGRESS NOTE DATE OF SERVICE: 09/04/2020 This 55-year-old gentleman who was admitted with multiple symptoms including abdominal pain, underwent surgery by Dr. Bolden. During the surgery, the patient was found to have intraabdominal abscess and as well as suspected perforated appendix with perforated terminal ileum. The patient underwent ileocecectomy and washout. The patient being closely monitored at this time. Biopsies are pending. The patient had NG tube in situ. No chest pain. No palpitations. No fever. PHYSICAL EXAMINATION: Alert and oriented times three. Pulse 51, blood pressure 135/58, respirations 16, temperature 97.7, pulse ox 98% on 2 L. HEENT: Conjunctivae normal. NECK: No JVD. CARDIOVASCULAR: S1, S2 muffled. RESPIRATORY: Breath sounds diminished at the bases. A few scattered rhonchi. ABDOMEN: Soft, status post surgery. LEGS are no edema. No swelling. NERVOUS SYSTEM: No focal deficits. LABS: WBC 12.2, hemoglobin 13.9 and glucose is 111. Covid 19 is negative. ASSESSMENT: 1. Acute abdomen with portal venous gas with possibly intraabdominal abscess with suspected perforated appendix or perforated terminal ileum, status post exploratory laparotomy and as well as ileocecostomy and washout with possible sepsis. 2. Rule out Crohn's disease. 3. Increased WBC. 4. Hyponatremia. 5. Increased random blood sugar. 6. History of irritable bowel syndrome. 7. History of hernia repair. 8. History of degenerative joint disease. 9. History of fibula spiral fracture. 10.History of nicotine dependence. 11.Mild protein calorie malnutrition BMI of 19.8. 12.FULL CODE. RECOMMENDATIONS AND DISCUSSION: Recommend to continue current medical management and symptomatic treatment. Continue the antibiotics. Repeat labs. See orders for details. Prognosis guarded. Closely follow with Dr. Bolden. Discussed with Dr. Bolden. Await biopsy reports. Further recommendations to follow. MMODL / IJN: [id number] /
[2020-09-05] MEDS: KETOROLAC 15 MG/ML 1 ML VIAL IVP SCH ×3 (00:18→11:30)
[2020-09-05] MEDS: METOCLOPRAMIDE 5 MG/ML 2 ML VIAL IVP SCH ×4 (05:02→21:39)
[2020-09-05] MEDS: PIPERACILLIN-TAZOBACTAM 3.375 GM in SODIUM CHLORIDE 0.9% 100 ML IVPB SCH ×3 (05:02→21:40)
[2020-09-05] MEDS: HEPARIN SODIUM,PORCINE/PF 5,000 UNIT/0.5 ML SYRINGE SQ SCH ×2 (08:33→21:39)
[2020-09-05] MEDS: PANTOPRAZOLE 40 MG/10 ML VIAL IVP SCH ×2 (08:33→21:39)
[2020-09-05] MEDS: HYDROmorphone 0.5 MG/0.5 ML SYRINGE IVP PRN ×3 (08:34→19:13)
[2020-09-05 10:48] LABS: Basophils # (A) 0.02 X 10*3/uL (0.00-0.10); Basophils % (A) 0.2 %; Eosinophils # (A) 0.12 X 10*3/uL (0.04-0.35); Eosinophils % (A) 1.3 %; HCT 36.9 % (39.6-50.0); HGB 12.3 g/dL (13.0-17.0); Lymphocytes % (A) 10.8 %; MCH 32.5 pg (27.0-32.0); MCHC 33.3 g/dL (32.0-37.0); MCV 97.6 fL (80.0-97.0); Mean Platelet Volume 11.4 fL (9.5-12.2); Monocytes # (A) 0.88 X 10*3/uL (0.20-1.00); Monocytes % (A) 9.5 %; Neutrophils # (A) 7.17 X 10*3/uL (1.80-7.70); Neutrophils % (A) 77.9 %; Platelet Count 210 X 10*3/uL (140-440); RBC 3.78 X 10*6/uL (4.40-5.60); RDW 11.9 % (11.5-14.5); WBC 9.22 X 10*3/uL (4.50-10.00)
[2020-09-05] MEDS: LACTATED RINGERS 1,000 ML IV SCH ×2 (11:54→19:08)
--- NOTE | 2020-09-05 12:37 | P.PN ---
Subjective Progress Note Date: 09/05/20 Patient is feeling well, pain controlled, no acute events overnight Objective - Vital Signs Vital signs: Vital Signs Temp 98.1 F 09/05/20 08:00 Pulse 55 L 09/05/20 08:00 Resp 16 09/05/20 08:30 BP 135/91 09/05/20 08:00 Pulse Ox 96 09/05/20 08:00 Intake & Output 09/04/20 09/05/20 09/05/20 18:59 06:59 18:59 Output Total 95 570 Balance -95 -570 Output: Gastric Drainage 100 Drainage 95 45 Anterior Abdomen 95 45 Urine 425 Other: Voiding Method Indwelling Catheter Indwelling Catheter - Constitutional General appearance: Present: cooperative - Respiratory Details: nonlabored - Cardiovascular Rhythm: regular - Gastrointestinal Gastrointestinal Comment(s): S/expected TTP incisions CDI VIRGINIE serosang - Labs CBC & Chem 7: 09/05/20 07:42 09/04/20 06:56 Labs: Abnormal Lab Results - Last 24 Hours (Table) 09/04/20 09/05/20 Range/Units 06:56 07:42 RBC 3.78 L (4.40-5.60) X 10*6/uL Hgb 12.3 L (13.0-17.0) g/dL Hct 36.9 L (39.6-50.0) % MCV 97.6 H (80.0-97.0) fL MCH 32.5 H (27.0-32.0) pg BUN/Creatinine Ratio 34.29 H (12.00-20.00) Ratio Glucose 111 H (70-110) mg/dL Calcium 8.0 L (8.7-10.3) mg/dL Microbiology - Last 24 Hours (Table) 09/03/20 16:04 Gram Stain - Preliminary Other - Other Wound Culture - Preliminary 09/03/20 12:21 Blood Culture - Preliminary Blood No Growth after 24 hours 09/03/20 12:36 Blood Culture - Preliminary Blood No Growth after 24 hours 09/04/20 06:30 Urine Culture - Preliminary Urine,Catheterized 09/03/20 16:04 Anaerobic Culture - Preliminary Peritoneal Fluid Assessment and Plan Assessment: POD2 Ileocecectomy Plan: Continue NPO/NGT until return of bowel function. Pain control, IS, SQ hepari. Ambulate in halls.
[2020-09-05 14:00] LABS: ALT <8 U/L (10-49); AST 15 U/L (14-35); African American GFR (CKD) 121.4 (60.0-200.0); Albumin/Globulin Ratio 1.32 (1.60-3.17); Alkaline Phosphatase 45 U/L (41-126); BUN/Creat Ratio 35.71 Ratio (12.00-20.00); Calcium 8.2 mg/dL (8.7-10.3); Carbon Dioxide 24.7 mmol/L (21.6-31.8); Chloride 107 mmol/L (96-109); Globulin 2.2 g/dL (1.6-3.3); Glucose 84 mg/dL (70-110); Non-African American GFR(CKD) 104.8 (60.0-200.0); Potassium 4.5 mmol/L (3.5-5.5); Sodium 140 mmol/L (135-145); Total Bilirubin 0.6 mg/dL (0.3-1.2); Total Protein 5.1 g/dL (6.2-8.2)
[2020-09-05 14:19] VITALS: BMI 19.8
--- NOTE | 2020-09-05 19:25 | XR ---
EXAMINATION TYPE: XR chest 1V portable DATE OF EXAM: 09/05/2020 COMPARISON: NONE HISTORY: Short of breath TECHNIQUE: Single view FINDINGS: Heart is normal. There is nasogastric tube in the stomach. There is no heart failure. There is some mild infiltrate in the right lower lobe. IMPRESSION: Minimal right lower lobe pneumonia. Normal heart.
--- NOTE | 2020-09-05 20:37 | PN ---
PROGRESS NOTE DATE OF SERVICE: 09/05/2020. HISTORY: This 55-year-old gentleman who was admitted with acute abdomen also had portal venous gas. The patient had possible perforated terminal ileum with intraabdominal abscess. The patient had surgery by Dr. Bolden. The patient still has NG tube which was some coffee-ground material at this time. Otherwise, biopsy is still pending at this time. PAST MEDICAL HISTORY: Reviewed. REVIEW OF SYSTEMS: Noted. PHYSICAL EXAMINATION: Patient is alert, oriented x3. Pulse is 54, blood pressure 130/60, respirations 16, temperature 97.6, pulse ox 97% on room air. HEENT: Conjunctivae normal. NECK: Supple. No JVD. CARDIOVASCULAR: S1 and S2 muffled. LUNGS: Breath sounds diminished at the bases. No rhonchi no crackles. ABDOMEN: Soft status post surgery. NERVOUS SYSTEM: Nonfocal. LABS: WBC 9.2, hemoglobin 12.3, sodium 140, potassium 4.5, albumin ratio noted. ASSESSMENT: 1. Acute abdomen with possibly intestinal perforation with either perforated appendix or perforated terminal ileum with intraabdominal abscess status post exploratory laparotomy as well as ileocecostomy and washout with possible sepsis present on admission. 2. Rule out Crohn disease. 3. Increased WBC. 4. Hyponatremia. 5. Increased random blood sugar glucose. 6. History of irritable bowel syndrome. 7. History of hernia repair. 8. History of degenerative joint disease. 9. History of fibular spiral fracture. 10.History of nicotine dependence. 11.Mild protein calorie malnutrition, BMI of 19.8. 12.FULL CODE. RECOMMENDATIONS AND DISCUSSION: I recommend to continue current management and symptomatic treatment. Otherwise at this time incentive spirometry and DVT prophylaxis. I would also recommend a portable chest x-ray to complete the workup at this time. Continue to monitor. I would also evaluate the chest x-ray to evaluate the fluid balance also and rule out CHF. Further recommendations to follow. MMODL / IJN: [id number] /
[2020-09-06] MEDS: HYDROmorphone 0.5 MG/0.5 ML SYRINGE IVP PRN ×7 (00:52→22:16)
[2020-09-06] MEDS: LACTATED RINGERS 1,000 ML IV SCH ×3 (01:48→22:05)
[2020-09-06] MEDS: PIPERACILLIN-TAZOBACTAM 3.375 GM in SODIUM CHLORIDE 0.9% 100 ML IVPB SCH ×4 (04:18→22:05)
[2020-09-06] MEDS: METOCLOPRAMIDE 5 MG/ML 2 ML VIAL IVP SCH ×4 (04:18→22:05)
[2020-09-06] MEDS: PANTOPRAZOLE 40 MG/10 ML VIAL IVP SCH ×2 (08:03→22:05)
[2020-09-06] MEDS: HEPARIN SODIUM,PORCINE/PF 5,000 UNIT/0.5 ML SYRINGE SQ SCH ×2 (08:03→22:04)
[2020-09-06 11:07] LABS: Basophils # (A) 0.04 X 10*3/uL (0.00-0.10); Basophils % (A) 0.4 %; Eosinophils # (A) 0.17 X 10*3/uL (0.04-0.35); Eosinophils % (A) 1.5 %; HCT 36.2 % (39.6-50.0); HGB 11.8 g/dL (13.0-17.0); Lymphocytes # (A) 1.11 X 10*3/uL (0.90-5.00); Lymphocytes % (A) 9.8 %; MCH 32.2 pg (27.0-32.0); MCHC 32.6 g/dL (32.0-37.0); MCV 98.6 fL (80.0-97.0); Mean Platelet Volume 11.6 fL (9.5-12.2); Monocytes # (A) 0.84 X 10*3/uL (0.20-1.00); Monocytes % (A) 7.4 %; Neutrophils # (A) 9.12 X 10*3/uL (1.80-7.70); Neutrophils % (A) 80.5 %; Platelet Count 235 X 10*3/uL (140-440); RBC 3.67 X 10*6/uL (4.40-5.60); WBC 11.32 X 10*3/uL (4.50-10.00)
[2020-09-06 12:33] LABS: African American GFR (CKD) 129.4 (60.0-200.0); Anion Gap 11.5 mmol/L (4.00-12.00); BUN/Creat Ratio 31.67 Ratio (12.00-20.00); Calcium 8.3 mg/dL (8.7-10.3); Carbon Dioxide 25.5 mmol/L (21.6-31.8); Non-African American GFR(CKD) 111.6 (60.0-200.0); Potassium 4.4 mmol/L (3.5-5.5)
--- NOTE | 2020-09-06 14:53 | P.PN ---
Subjective Progress Note Date: 09/06/20 Patient is feeling well, pain controlled, no acute events overnight Objective - Vital Signs Vital signs: Vital Signs Temp 98.1 F 09/06/20 14:00 Pulse 55 L 09/06/20 14:00 Resp 18 09/06/20 14:00 BP 133/65 09/06/20 14:00 Pulse Ox 96 09/06/20 14:00 Intake & Output 09/05/20 09/06/20 09/06/20 18:59 06:59 18:59 Output Total 600 590 5 Balance -600 -590 -5 Weight 58.967 kg Output: Gastric Drainage 110 Drainage 30 5 Anterior Abdomen 30 5 Urine 600 450 Other: Voiding Method Indwelling Catheter Indwelling Catheter Indwelling Catheter - Constitutional General appearance: Present: cooperative - Cardiovascular Rhythm: regular - Gastrointestinal Gastrointestinal Comment(s): S/ND/ VIRGINIE serosang Dressing CDI - Labs CBC & Chem 7: 09/06/20 07:27 09/06/20 07:27 Labs: Abnormal Lab Results - Last 24 Hours (Table) 09/06/20 09/06/20 Range/Units 07:27 07:27 WBC 11.32 H (4.50-10.00) X 10*3/uL RBC 3.67 L (4.40-5.60) X 10*6/uL Hgb 11.8 L (13.0-17.0) g/dL Hct 36.2 L (39.6-50.0) % MCV 98.6 H (80.0-97.0) fL MCH 32.2 H (27.0-32.0) pg Neutrophils # 9.12 H (1.80-7.70) X 10*3/uL BUN/Creatinine Ratio 31.67 H (12.00-20.00) Ratio Calcium 8.3 L (8.7-10.3) mg/dL Microbiology - Last 24 Hours (Table) 09/03/20 12:21 Blood Culture - Preliminary Blood No Growth after 72 hours 09/03/20 12:36 Blood Culture - Preliminary Blood No Growth after 72 hours 09/03/20 16:04 Gram Stain - Final Other - Other Wound Culture - Final Beta Hemolytic Streptococcus F 09/04/20 06:30 Urine Culture - Final Urine,Catheterized Assessment and Plan Assessment: POD3 Ileocecectomy Plan: Continue NPO/NGT until return of bowel function. Pain control, IS, SQ hepari. Ambulate in halls.
[2020-09-06] MEDS ORDERED: IPRATROPIUM-ALBUTEROL 3 ML NEB INHALATION PRN (16:44)
--- NOTE | 2020-09-06 18:14 | PN ---
PROGRESS NOTE DATE OF SERVICE: 09/06/2020 INTERVAL HISTORY: This is a 55-year-old gentleman with abdominal pain, possible perforation and abdominal abscess. The patient has surgery with Dr. Bolden. The patient had NG tube. Patient is ambulating at this time. The biopsies are pending at this time. No chest pain. No palpitations. No fever. PHYSICAL EXAMINATION: GENERAL: Patient is alert and oriented times three. VITAL SIGNS: Pulse 55, blood pressure 130/64, respirations 18, temperature 98.1, pulse ox 96% on room air. HEENT: Conjunctivae normal. Oral mucosa moist. NECK: No jugular venous distention. No carotid bruits. RESPIRATORY: Breath sounds diminished at the bases. No rhonchi, no crackles. HEART: S1 and S2, muffled. ABDOMEN: Soft, status post surgery. EXTREMITIES: No edema, no swelling. NERVOUS: No focal deficits. LABS: WBC 11.3, hemoglobin 11.8. ASSESSMENT: 1. Acute abdomen with possibly intestinal perforation with perforated appendix and perforated terminal ileum with intraabdominal abscess, status post exploratory laparotomy as well as ileostomy, cecectomy and washout with possible sepsis present on admission. 2. Rule out Crohn disease. 3. Increased WBC. 4. Hyponatremia. 5. Increased random glucose. 6. History of irritable bowel syndrome. 7. History of hernia repair. 8. History of degenerative joint disease. 9. History of fibular spiral fracture. 10.History of nicotine dependence. 11.Mild protein calorie malnutrition BMI of 19.8. 12.FULL CODE. RECOMMENDATION AND DISCUSSION: Recommend to continue current medications, continue to monitor, symptomatic treatment. Otherwise at this time I would recommend continue with current medications. The most recent chest x-ray which was reviewed personally by me showed minimal right lower lobe infiltrates or pneumonia. Continue with broad-spectrum IV antibiotics. Add bronchodilators and incentive spirometry. Further recommendations to follow. MMODL / IJN: [id number] / MTDElia
[2020-09-06] MEDS: IPRATROPIUM-ALBUTEROL 3 ML NEB INHALATION SCH (19:23)
[2020-09-07] MEDS: HYDROmorphone 0.5 MG/0.5 ML SYRINGE IVP PRN ×6 (02:45→21:16)
[2020-09-07] MEDS: LACTATED RINGERS 1,000 ML IV SCH ×3 (02:45→21:13)
[2020-09-07] MEDS: METOCLOPRAMIDE 5 MG/ML 2 ML VIAL IVP SCH ×4 (05:30→21:16)
[2020-09-07] MEDS: PIPERACILLIN-TAZOBACTAM 3.375 GM in SODIUM CHLORIDE 0.9% 100 ML IVPB SCH ×3 (05:30→21:15)
[2020-09-07] MEDS: HEPARIN SODIUM,PORCINE/PF 5,000 UNIT/0.5 ML SYRINGE SQ SCH ×2 (07:36→21:14)
[2020-09-07] MEDS: PANTOPRAZOLE 40 MG/10 ML VIAL IVP SCH ×2 (07:36→21:15)
[2020-09-07] MEDS: IPRATROPIUM-ALBUTEROL 3 ML NEB INHALATION SCH ×3 (09:26→20:57)
--- NOTE | 2020-09-07 19:18 | PN ---
PROGRESS NOTE DATE OF SERVICE: 09/07/2020. This 55-year-old gentleman who was admitted with abdominal abscess, had surgery. The patient closely monitored. No chest pain. No palpitations. No fever. Biopsies are pending at this time. The patient has NG tube in situ. The patient is able to ambulate. Dr. Bolden is following the patient closely. PHYSICAL EXAMINATION: Alert and oriented times three. Pulse 56. Blood pressure 125/60, respirations 16, temperature 98 degrees, pulse ox 98 percent on room air. HEENT: Conjunctivae normal. NECK: No JVD. CARDIOVASCULAR: S1, S2 muffled. RESPIRATORY SYSTEM: Breath sounds diminished at the bases. No rhonchi. No crackles. ABDOMEN: Soft, status post surgery. LEGS: No edema. No swelling. NERVOUS SYSTEM: No focal deficits. LABS: WBC 11.2, hemoglobin 11.8. ESR is 23. ASSESSMENT: 1. Acute abdomen with possibly intestinal perforation with perforated appendix and perforated terminal ileum with intraabdominal abscess, status post exploratory laparotomy as well as ileostomy, cecectomy and washout with possible sepsis, present on admission. 2. Rule out Crohn's disease. 3. Increased WBC. 4. Hyponatremia. 5. Increased random blood sugar. 6. History of irritable bowel syndrome. 7. History of hernia repair. 8. History of degenerative joint disease. 9. History of tibial spiral fracture. 10.History of nicotine dependence. 11.Mild protein calorie malnutrition BMI of 19.8. 12.Wound culture shows beta-hemolytic streptococci. 13.FULL CODE. RECOMMENDATIONS AND DISCUSSION: I recommend to continue current medications, symptomatic treatment. Continue empiric antibiotics. The wound culture showed beta-hemolytic streptococci. Prognosis guarded because of multiple complex medical issues and further recommendations to follow. I would also recommend infectious disease evaluation as well. See orders for details. Continue with DVT prophylaxis. Increase ambulation. MMODL / IJN: [id number] /
--- NOTE | 2020-09-07 20:32 | P.PN ---
Subjective Progress Note Date: 09/07/20 Patient seen and examined at bedside. No acute events. Ambulating. No bowel function yet. Objective - Vital Signs Vital signs: Vital Signs Temp 98.0 F 09/07/20 13:43 Pulse 56 L 09/07/20 13:43 Resp 16 09/07/20 13:43 BP 125/63 09/07/20 13:43 Pulse Ox 96 09/07/20 13:43 Intake & Output 09/07/20 09/07/20 09/08/20 06:59 18:59 06:59 Output Total 540 Balance -540 Weight 58.967 kg Output: Urine 540 Other: Voiding Method Urinal Urinal # Voids 3 - Constitutional General appearance: Present: cooperative, no acute distress - Gastrointestinal Gastrointestinal Comment(s): soft, appropriate incisional tenderness, nondistended, VIRGINIE with serosanguinous output - Labs CBC & Chem 7: 09/06/20 07:27 09/06/20 07:27 Labs: Microbiology - Last 24 Hours (Table) 09/03/20 12:21 Blood Culture - Preliminary Blood No Growth after 96 hours 09/03/20 12:36 Blood Culture - Preliminary Blood No Growth after 96 hours Assessment and Plan Plan: Postop from ileocecectomy - Await bowel function - Increase activity - If no bowel function in next 24 hours, will need to consider TPN/PPN - Continue VIRGINIE - Cont med recs - Progressing slowly
--- NOTE | 2020-09-07 23:13 | CONS ---
CONSULTATION DATE OF SERVICE: 09/07/2020 REASON FOR CONSULTATION: Intraabdominal abscess. HISTORY OF PRESENT ILLNESS: The patient is a 55-year-old male presented to [facility] ER 5 days ago for evaluation of abdominal pain. Abdominal pain was mostly in the right side and right upper abdominal area. The patient said was going on for about eight days before he presented to the hospital. The patient's pain was sharp in nature and at times colicky, intensity almost 7 to 8 out of 10. No radiation. The patient was initially constipated and thought rather attending to it, he took some laxative without any improvement, With these symptoms, the patient presented to hospital. On arrival to the ER, the patient was afebrile. The patient did have a white count of 19.9. The patient did have a CT of abdomen and pelvis which did show significant inflammatory changes in the right lower quadrant area. The patient was taken to the OR on 09/03/2020 for diagnostic laparoscopy. There was switched to open laparotomy. The patient is status post ileocecectomy and drainage of the abdominal abscess. The patient has been treated with Zosyn. Abdominal culture now showing beta hemolytic Streptococcus F. Infectious disease was consulted today for further management of antibiotic therapy. The patient currently denies having any fever or any chills, cough. Denies any chest pain or shortness of breath or cough. Did have some headache. The patient's abdominal pain slightly decreased intensity with some nausea but no vomiting. The patient has not been passing any gas and did not have any bowel movement. REVIEW OF SYSTEMS: Positive points have been mentioned in HPI. Rest of systems are negative. PAST MEDICAL HISTORY: Diverticulitis, IBS. PAST SURGICAL HISTORY: Hernia repair, right fibular spiral fracture, colonoscopy. SOCIAL HISTORY: Current everyday smoker. Denies drinking or drug use. FAMILY HISTORY: Mother with history of diabetes. Father history of cardiac issue. ALLERGIES: No known drug allergies. MEDICATION: Include the patient currently on: Restoril, Zosyn, Protonix, Zofran, Narcan, Reglan, lactated Ringer, and Dilaudid. PHYSICAL EXAMINATION: Blood pressure 135/70 with a pulse of 50, temperature 98.9. He is 97% on room air. General description: The patient is a middle-aged male lying in bed in no distress. No tachypnea or accessory muscles of respiration use. HEENT: Examination shows pallor. No scleral icterus. Oral mucous membranes dry. Neck: Trachea central. No thyromegaly. LUNGS unlabored breathing. Clear to auscultation anteriorly. No wheeze or crackles. HEART S1, S2. Regular rate and rhythm. ABDOMEN: Soft, tender in the right lower quadrant area. No guarding. No rigidity. No organomegaly. EXTREMITIES: No edema of the feet. SKIN EXAMINATION: No rash or mass palpable. NEUROLOGICAL: Patient is awake, alert, oriented times three. Mood and affect normal. LABS: Hemoglobin is 11.8, white count of 11.32, BUN of 19, creatinine 0.6. Electrolytes have been normal. Abdominal culture with beta hemolytic Streptococcus F. Blood culture has been negative. DIAGNOSTIC IMPRESSION AND PLAN: Patient with abdominal abscess in this patient possible perforated appendix versus terminal ileum. This patient is status post ileocecectomy and drainage of the abscess showing a Streptococcus not bacteremic. White count showing a downward trend. PLAN: 1. Discontinue Zosyn. 2. Start the patient on Unasyn 3 grams q.6 hours. 3. Gentle IV fluids. 4. We will follow on clinical condition to further adjust medication if needed. Thank you for this consultation. We will follow this patient along with you. MMODL / IJN: [id number] / NIHARIKA
[2020-09-08] MEDS ORDERED: AMPICILLIN-SULBACTAM 3 GM in SODIUM CHLORIDE 0.9% 100 ML IVPB SCH ×2
[2020-09-08] MEDS: HYDROmorphone 0.5 MG/0.5 ML SYRINGE IVP PRN ×7 (01:53→23:57)
[2020-09-08] MEDS: AMPICILLIN-SULBACTAM 3 GM in SODIUM CHLORIDE 0.9% 100 ML IVPB SCH ×4 (01:58→20:39)
[2020-09-08] MEDS: LACTATED RINGERS 1,000 ML IV SCH ×2 (03:28→17:06)
[2020-09-08] MEDS: METOCLOPRAMIDE 5 MG/ML 2 ML VIAL IVP SCH ×4 (03:48→20:40)
[2020-09-08] MEDS: PANTOPRAZOLE 40 MG/10 ML VIAL IVP SCH ×2 (07:32→20:38)
[2020-09-08] MEDS: HEPARIN SODIUM,PORCINE/PF 5,000 UNIT/0.5 ML SYRINGE SQ SCH ×2 (07:32→20:38)
[2020-09-08] MEDS: IPRATROPIUM-ALBUTEROL 3 ML NEB INHALATION SCH ×3 (08:29→20:36)
[2020-09-08 13:16] LABS: African American GFR (CKD) >90 (>60 ml/min/1.73 sqM); Anion Gap 10 mmol/L; Blood Urea Nitrogen 11 mg/dL (9-20); Calcium 8.6 mg/dL (8.4-10.2); Carbon Dioxide 29 mmol/L (22-30); Chloride 98 mmol/L (98-107); Glucose 71 mg/dL (74-99); Magnesium 1.8 mg/dL (1.6-2.3); Non-African American GFR(CKD) >90 (>60 ml/min/1.73 sqM); Phosphorus 2.5 mg/dL (2.5-4.5); Potassium 4.1 mmol/L (3.5-5.1); Sodium 137 mmol/L (137-145)
[2020-09-08] MEDS ORDERED: LIDOCAINE 1% INJ 10MG/ML (20 ML MDV) SQ ONE (13:29)
--- NOTE | 2020-09-08 14:04 | IR ---
PICC LINE PLACEMENT: HISTORY: Infection requiring long-term antibiotic therapy PROCEDURE: Ultrasound and fluoroscopic guidance of PICC line placement. COMPLICATIONS: None ANESTHESIA: 1. 1% Lidocaine locally. FINDINGS/TECHNIQUE: The procedure was explained to the patient. The risks, complications, benefits and alternatives were discussed and any questions were answered. Informed consent was obtained. The patient was placed supine on the fluoroscopic table and prepped and draped in the usual sterile fash ion. Utilizing a 21 gauge needle and sonographic and fluoroscopic guidance, access in the left basi lic vein was achieved and there is placement of a 0.018 guidewire. The vein is patent. A 4-F sheath was placed over the guidewire. The guidewire and dilator were removed and a 4-F. PICC line was plac ed through the sheath with the tip at the level of the SVC. The sheath was removed, the catheter was flushed and sutured into position. The patient was stable throughout the procedure and remained sta ble upon discharge from the Department of Radiology. The vein puncture was patent under ultrasound. A sorto scale image was obtained to document patency of the vein punctured. All elements of the maximal barrier technique were utilized. FLUOROSCOPY TIME: 0.4 minutes, one image submitted IMPRESSION: Successful PICC line placement under ultrasound and fluoroscopic guidance.
--- NOTE | 2020-09-08 15:49 | P.PN ---
Subjective Progress Note Date: 09/08/20 Patient is feeling well, pain controlled, no acute events overnight, passed flatus this afternoon Objective - Vital Signs Vital signs: Vital Signs Temp 98.6 F 09/08/20 14:00 Pulse 52 L 09/08/20 14:00 Resp 18 09/08/20 14:00 BP 142/74 09/08/20 14:00 Pulse Ox 97 09/08/20 14:00 Intake & Output 09/07/20 09/08/20 09/08/20 18:59 06:59 18:59 Output Total 530 70 Balance -530 -70 Weight 58.967 kg 58.967 kg Output: Gastric Drainage 200 Drainage 30 70 Anterior Abdomen 30 70 Urine 300 Other: Voiding Method Urinal # Voids 3 - Constitutional General appearance: Present: cooperative - Cardiovascular Rhythm: regular - Gastrointestinal Gastrointestinal Comment(s): S/NT/ND VIRGINIE serosang - Labs CBC & Chem 7: 09/06/20 07:27 09/08/20 12:30 Labs: Abnormal Lab Results - Last 24 Hours (Table) 09/08/20 Range/Units 12:30 Creatinine 0.54 L (0.66-1.25) mg/dL Glucose 71 L (74-99) mg/dL Microbiology - Last 24 Hours (Table) 09/03/20 12:21 Blood Culture - Preliminary Blood No Growth after 120 hours 09/03/20 12:36 Blood Culture - Preliminary Blood No Growth after 120 hours 09/03/20 16:04 Anaerobic Culture - Final Peritoneal Fluid Anaerobic Gram Positive Cocci Assessment and Plan Assessment: S/p Ileocecectomy Plan: Continue NPO, clamp NGT if tolerates overnight will start clears, patient did get picc this AM before he had bowel function and will run TPN untill he is tolerating diet. Did discuss with pathology about AFB stain and they stated there was no granulomatous disease seen which effectively rules out TB so stain was not performed.
[2020-09-08] MEDS ORDERED: MVI, ADULT NO.4 WITH VIT K 10 ML, TRACE (CONC-1ML/DOSE) 1 ML in AMINO ACID 5%-D15W+LYTE... IV SCH ×3 (16:00)
[2020-09-08] MEDS: FAT EMULSION 20% 250 ML IV SCH (16:26)
--- NOTE | 2020-09-08 17:01 | PN ---
PROGRESS NOTE DATE OF SERVICE: 09/08/2020 This 55-year-old gentleman admitted with acute abdominal abscess, possibly secondary to perforation had surgery. The patient is on broad-spectrum IV antibiotics. Cultures are showing beta hemolytic streptococci from the wound. The patient is currently on IV Unasyn. The biopsy specimen showed periappendicitis. The biopsy is negative for any diagnostic features, inflammatory bowel disease according the pathology. No chest pain. No palpitations. No fever. PHYSICAL EXAMINATION: Alert and oriented x3. Pulse is 55. Blood pressure 132/68. Respirations 18. Temperature 98 degrees, pulse ox 97 percent on room air. HEENT: Conjunctivae normal. NECK: No JVD. CARDIOVASCULAR: S1, S2 muffled. RESPIRATORY SYSTEM: Breath sounds diminished at the bases. Scattered rhonchi. No crackles. ABDOMEN: Soft, status post surgery. LEGS are no edema. No swelling. NERVOUS SYSTEM: No focal deficits. LABS: WBC 11.32, hemoglobin 11.8, sodium is 137, potassium 4.1. ASSESSMENT: 1. Acute abdomen with possibly intestinal perforation with perforated appendix and perforated terminal ileum with intraabdominal abscess, status post exploratory laparotomy as well as ileostomy, cecectomy and washout with possible sepsis, present on admission. 2. Crohn's disease ruled out for history pathology. 3. Increased WBC. 4. Hyponatremia. 5. Wound culture showing beta hemolytic streptococci. 6. Hyponatremia. 7. Increased random blood sugar. 8. History of irritable bowel syndrome. 9. History of hernia surgery. 10.History of degenerative joint disease. 11.History of tibial spiral fracture. 12.History of nicotine dependence. 13.Mild protein calorie malnutrition with body mass index of 19.8. 14.FULL CODE. RECOMMENDATIONS AND DISCUSSION: Recommend to continue current medications, management and symptomatic treatment. Continue with broad-spectrum IV antibiotics. Repeat labs. Otherwise closely monitor with surgery. Guarded prognosis. Further recommendations to follow. MMODL / IJN: [id number] /
--- NOTE | 2020-09-08 22:51 | PN ---
PROGRESS NOTE DATE OF SERVICE: 09/08/2020 REASON FOR FOLLOWUP: Abdominal abscess. INTERVAL HISTORY: Patient is afebrile. The patient's abdominal pain is currently controlled. Denies having any chest pain. No shortness of breath or cough. Still has the NG, passing some gas. PHYSICAL EXAMINATION: Blood pressure 142/74, pulse of 52, temperature 98.6. He is 97% on room air. General description is a middle-aged male lying in bed in no distress. Respiratory system: Unlabored breathing, clear to auscultation anteriorly. Heart S1, S2. Regular rate and rhythm. Abdomen soft, nontender. No guarding. No rigidity. LABS: Hemoglobin is 11.1, white count 11.32, BUN of 11, creatinine 0.54. Abdominal cultures with group F strep and anaerobes. DIAGNOSTIC IMPRESSION AND PLAN: Patient with intraabdominal abscess status post ileocecectomy. Patient is covered with Unasyn. White count will be repeated and monitor clinical course closely. MMODL / IJN: [id number] / [facility]
[2020-09-09] MEDS: AMPICILLIN-SULBACTAM 3 GM in SODIUM CHLORIDE 0.9% 100 ML IVPB SCH ×4 (04:11→21:19)
[2020-09-09] MEDS: HYDROmorphone 0.5 MG/0.5 ML SYRINGE IVP PRN ×6 (04:11→21:23)
[2020-09-09] MEDS: METOCLOPRAMIDE 5 MG/ML 2 ML VIAL IVP SCH ×4 (04:11→21:22)
[2020-09-09] MEDS: IPRATROPIUM-ALBUTEROL 3 ML NEB INHALATION SCH ×3 (07:17→19:06)
[2020-09-09] MEDS: PANTOPRAZOLE 40 MG/10 ML VIAL IVP SCH ×2 (07:48→21:22)
[2020-09-09] MEDS: HEPARIN SODIUM,PORCINE/PF 5,000 UNIT/0.5 ML SYRINGE SQ SCH ×2 (07:49→21:22)
[2020-09-09 08:34] LABS: African American GFR (CKD) >90 (>60 ml/min/1.73 sqM); Anion Gap 4 mmol/L; Blood Urea Nitrogen 8 mg/dL (9-20); Carbon Dioxide 30 mmol/L (22-30); Chloride 101 mmol/L (98-107); Glucose 126 mg/dL (74-99); Magnesium 1.8 mg/dL (1.6-2.3); Non-African American GFR(CKD) >90 (>60 ml/min/1.73 sqM); Phosphorus 2.7 mg/dL (2.5-4.5); Potassium 3.7 mmol/L (3.5-5.1); Sodium 135 mmol/L (137-145)
[2020-09-09] MEDS ORDERED: POTASSIUM CHLORIDE 20 MEQ in WATER FOR INJECTION 1 100ML.BAG IVPB ONE (11:00)
--- NOTE | 2020-09-09 11:39 | P.PN ---
Subjective Progress Note Date: 09/09/20 Patient is feeling well, pain controlled, no acute events overnight, no more flatus no BM, Patient was nauseated and NGT placed back to suction Objective - Vital Signs Vital signs: Vital Signs Temp 98.3 F 09/09/20 07:35 Pulse 55 L 09/09/20 08:00 Resp 16 09/09/20 08:00 BP 137/65 09/09/20 07:35 Pulse Ox 97 09/09/20 07:35 Intake & Output 09/08/20 09/09/20 09/09/20 18:59 06:59 18:59 Output Total 970 600 Balance -970 -600 Weight 58.967 kg Output: Gastric Drainage 200 Drainage 70 Anterior Abdomen 70 Urine 700 600 Other: Voiding Method Urinal - Constitutional General appearance: Present: cooperative - Cardiovascular Rhythm: regular - Gastrointestinal Gastrointestinal Comment(s): s/nt/nd dressing CDI VIRGNIIE serosang - Labs CBC & Chem 7: 09/06/20 07:27 09/09/20 08:03 Labs: Abnormal Lab Results - Last 24 Hours (Table) 09/08/20 09/09/20 Range/Units 12:30 08:03 Sodium 135 L (137-145) mmol/L BUN 8 L (9-20) mg/dL Creatinine 0.54 L 0.48 L (0.66-1.25) mg/dL Glucose 71 L 126 H (74-99) mg/dL Calcium 8.0 L (8.4-10.2) mg/dL Microbiology - Last 24 Hours (Table) 09/03/20 12:21 Blood Culture - Preliminary Blood No Growth after 120 hours 09/03/20 12:36 Blood Culture - Preliminary Blood No Growth after 120 hours 09/03/20 16:04 Anaerobic Culture - Final Peritoneal Fluid Anaerobic Gram Positive Cocci Assessment and Plan Assessment: S/p Ileocecectomy Plan: Continue NGT to LIS as patient was nauseated this AM and hasnt passed any more flatus since the one time yesterday. Cont TPN. ABX per ID
[2020-09-09] MEDS: FAT EMULSION 20% 250 ML IV SCH (17:44)
--- NOTE | 2020-09-09 18:35 | PN ---
PROGRESS NOTE DATE OF SERVICE: 09/09/2020 REASON FOR FOLLOWUP: Intraabdominal abscess. INTERVAL HISTORY: Patient is currently afebrile. The patient is breathing comfortably. Denies having any chest pain. Has become concerned with some abdominal discomfort. Still has the NG tube in. No vomiting. Did not have any bowel movement. PHYSICAL EXAMINATION: Blood pressure is 118/66, pulse of 51, temperature is 98.2. He is 93% on room air. General description: The patient is a middle-aged male up in the bed in no distress. Respiratory system: Unlabored breathing, decreased breath sounds in the base, with no wheeze. Heart S1, S2. Regular rate and rhythm. ABDOMEN: Soft, no tenderness. LABS: BUN of 8, creatinine 0.48. DIAGNOSTIC IMPRESSION AND PLAN: Patient with intraabdominal abscess from a possible perforated appendicitis status post ileocecectomy. Abdominal culture with group Strep and anaerobes. Patient is covered with Unasyn to continue while monitoring clinical course closely. Continue supportive care. MMODL / IJN: [id number] /
[2020-09-10] MEDS: MVI, ADULT NO.4 WITH VIT K 10 ML, TRACE (CONC-1ML/DOSE) 1 ML, SODIUM CHLORIDE 4MEQ/ML V... IV SCH ×8 (02:49→19:43)
[2020-09-10] MEDS: AMPICILLIN-SULBACTAM 3 GM in SODIUM CHLORIDE 0.9% 100 ML IVPB SCH ×4 (02:51→21:35)
[2020-09-10] MEDS: LACTATED RINGERS 1,000 ML IV SCH ×4 (02:59→21:34)
[2020-09-10] MEDS: HYDROmorphone 0.5 MG/0.5 ML SYRINGE IVP PRN ×7 (03:05→22:30)
[2020-09-10] MEDS: METOCLOPRAMIDE 5 MG/ML 2 ML VIAL IVP SCH ×4 (05:56→21:33)
[2020-09-10 07:15] LABS: African American GFR (CKD) >90 (>60 ml/min/1.73 sqM); Anion Gap 5 mmol/L; Blood Urea Nitrogen 8 mg/dL (9-20); Calcium 8.4 mg/dL (8.4-10.2); Carbon Dioxide 31 mmol/L (22-30); Chloride 101 mmol/L (98-107); Glucose 123 mg/dL (74-99); Non-African American GFR(CKD) >90 (>60 ml/min/1.73 sqM); Phosphorus 3.3 mg/dL (2.5-4.5); Potassium 3.9 mmol/L (3.5-5.1); Sodium 137 mmol/L (137-145)
[2020-09-10] MEDS: IPRATROPIUM-ALBUTEROL 3 ML NEB INHALATION SCH ×3 (08:27→19:12)
[2020-09-10] MEDS: HEPARIN SODIUM,PORCINE/PF 5,000 UNIT/0.5 ML SYRINGE SQ SCH ×2 (09:00→19:49)
[2020-09-10] MEDS: PANTOPRAZOLE 40 MG/10 ML VIAL IVP SCH ×2 (09:00→19:50)
--- NOTE | 2020-09-10 10:52 | P.PN ---
Subjective Progress Note Date: 09/10/20 Principal diagnosis: S/P ileocecectomy The patient is S/P ileocecectomy. He didn't tolerated the NG tube being clamped. It was placed back to suction yesterday and he is feeling better. No flatus. He is ambulating in the ramey. Pain is controlled. Objective - Vital Signs Vital signs: Vital Signs Temp 98.1 F 09/10/20 07:08 Pulse 52 L 09/10/20 08:44 Resp 18 09/10/20 07:08 BP 122/62 09/10/20 07:08 Pulse Ox 95 09/10/20 07:08 Intake & Output 09/09/20 09/10/20 09/10/20 18:59 06:59 18:59 Output Total 600 375 Balance -600 -375 Weight 58.967 kg Output: Drainage 375 Anterior Abdomen 375 Urine 600 Other: Voiding Method Urinal Urinal # Voids 2 - Constitutional General appearance: Present: cooperative, no acute distress - Respiratory Respiratory: bilateral: CTA, diminished (slightly at the bases) - Cardiovascular Rhythm: regular - Gastrointestinal General gastrointestinal: Present: absent bowel sounds. Absent: distended Localized gastrointestinal: surgical scar: diffuse (dressings are clean and dry. VIRGINIE serous) - Labs CBC & Chem 7: 09/06/20 07:27 09/10/20 06:13 Labs: Abnormal Lab Results - Last 24 Hours (Table) 09/10/20 Range/Units 06:13 Carbon Dioxide 31 H (22-30) mmol/L BUN 8 L (9-20) mg/dL Creatinine 0.48 L (0.66-1.25) mg/dL Glucose 123 H (74-99) mg/dL Microbiology - Last 24 Hours (Table) 09/03/20 12:36 Blood Culture - Final Blood No Growth after 144 hours 09/03/20 12:21 Blood Culture - Final Blood No Growth after 144 hours Assessment and Plan (1) Small bowel obstruction Current Visit: Yes Status: Acute Code(s): K56.609 - UNSP INTESTNL OBST, UNSP TO PARTIAL VERSUS COMPLETE OBST SNOMED Code(s): 658972847 Plan: The patient is still experiencing an ileus. Will continue supportive care. Encourage IS and ambulation. Progressing slowly. Questions encouraged and answered
--- NOTE | 2020-09-10 12:23 | P.PN ---
Subjective Progress Note Date: 09/09/20 55-year-old male patient admitted with acute abdominal abscess, possibly secondary to perforation during surgery Patient remains on broad-spectrum IV antibiotics; abdominal surgical site cultures reveal beta-hemolytic streptococcus; ID on board and patient is maintained on broad subcu antibiotics, IV Unasyn 09/09/2020 Patient is seen and evaluated in room at bedside; no specific complaints Vital signs reveal temperature of 98.2, pulse of 51, respiration 18 and blood pressure of 118/66; patient is saturating 93% on room air Lab review shows a BUN of 8 with creatinine of 0.4 Patient with intra-abdominal abscess from possibly perforated appendicitis and is status post ileocecectomy; abdominal culture reveals beta-hemolytic streptococcus and anaerobes; patient is currently on IV Unasyn; ID on board and recommending to continue current antibiotics. Further recommendations forthcoming Objective - Vital Signs Vital signs: Vital Signs Temp 98.3 F 09/09/20 07:35 Pulse 55 L 09/09/20 08:00 Resp 16 09/09/20 08:00 BP 137/65 09/09/20 07:35 Pulse Ox 97 09/09/20 07:35 Intake & Output 09/08/20 09/09/20 09/09/20 18:59 06:59 18:59 Output Total 970 600 Balance -970 -600 Weight 58.967 kg Output: Gastric Drainage 200 Drainage 70 Anterior Abdomen 70 Urine 700 600 Other: Voiding Method Urinal - Exam - Constitutional General appearance: Present: average body habitus, cooperative, no acute distress - EENT Eyes: Present: anicteric sclerae, EOMI, PERRLA, normal appearance ENT: Present: hearing grossly normal, normal oropharynx Ears: bilateral: normal - Neck Neck: Present: normal ROM. Absent: lymphadenopathy, rigidity, thyromegaly Carotids: negative: bruit present Thyroid: bilateral: normal size, negative: enlarged, nodule - Respiratory Respiratory: bilateral: CTA, negative: rales, rhonchi, wheezing - Cardiovascular Rhythm: regular Heart sounds: normal: S1, S2 Abnormal Heart Sounds: Absent: systolic murmur, diastolic murmur - Gastrointestinal General gastrointestinal: Present: normal bowel sounds, soft. Absent: distended, organomegaly, tenderness - Genitourinary Genitourinary Comment(s): deferred - Integumentary Integumentary: Present: normal turgor. Absent: jaundiced, rash, ulcer - Neurologic Neurologic: Present: CNII-XII intact. Absent: focal deficits - Musculoskeletal Musculoskeletal: Present: gait normal, strength equal bilaterally - Psychiatric Psychiatric: Present: A&O x's 3, appropriate affect, intact judgment & insight - Labs CBC & Chem 7: 09/06/20 07:27 09/10/20 06:13 Labs: Abnormal Lab Results - Last 24 Hours (Table) 09/08/20 09/09/20 Range/Units 12:30 08:03 Sodium 135 L (137-145) mmol/L BUN 8 L (9-20) mg/dL Creatinine 0.54 L 0.48 L (0.66-1.25) mg/dL Glucose 71 L 126 H (74-99) mg/dL Calcium 8.0 L (8.4-10.2) mg/dL Microbiology - Last 24 Hours (Table) 09/03/20 12:21 Blood Culture - Preliminary Blood No Growth after 120 hours 09/03/20 12:36 Blood Culture - Preliminary Blood No Growth after 120 hours 09/03/20 16:04 Anaerobic Culture - Final Peritoneal Fluid Anaerobic Gram Positive Cocci Assessment and Plan Assessment: 1. Intra-abdominal abscess secondary to perforated appendicitis; patient is status post ileocecectomy - Abdominal wound culture growing beta hemolytic streptococcus; patient is currently on IV antibiotics in form of Unasyn and ID recommending to continue 2. Leukocytosis; secondary to 1; we will continue with IV antibiotics and monitor CBC and CRP 3. Hyponatremia; we will supplement as tolerated and monitor electrolytes with further supplementation as needed 4. Hyperglycemia; resolved; monitor Accu-Cheks before meals and at bedtime with sliding scale as needed 5. Degenerative joint disease; stable 6. Mild protein calorie malnutrition; patient is been started on TPN; we will monitor electrolytes closely DVT prophylaxis; SCDs CODE STATUS; full code
[2020-09-10] MEDS: FAT EMULSION 20% 250 ML IV SCH (16:35)
--- NOTE | 2020-09-10 18:28 | P.PN ---
Subjective Progress Note Date: 09/10/20 Principal diagnosis: Intra-abdominal abscess secondary to perforated appendicitis Leukocytosis Hyponatremia Mild protein calorie malnutrition 55-year-old male patient admitted with acute abdominal abscess, possibly secondary to perforation during surgery Patient remains on broad-spectrum IV antibiotics; abdominal surgical site cultures reveal beta-hemolytic streptococcus; ID on board and patient is maintained on broad subcu antibiotics, IV Unasyn 09/09/2020 Patient is seen and evaluated in room at bedside; no specific complaints Vital signs reveal temperature of 98.2, pulse of 51, respiration 18 and blood pressure of 118/66; patient is saturating 93% on room air Lab review shows a BUN of 8 with creatinine of 0.4 Patient with intra-abdominal abscess from possibly perforated appendicitis and is status post ileocecectomy; abdominal culture reveals beta-hemolytic streptococcus and anaerobes; patient is currently on IV Unasyn; ID on board and recommending to continue current antibiotics. Further recommendations forth coming 09/10/2020 Patient is seen and evaluated in room at bedside; patient is status post ileocecectomy; continues to have NG tube to suctioning; patient's NG tube was clamped yesterday but did not tolerate and was placed back to suction; patient reports ambulating in the hallway but no bowel movement or flatus at this time Vital signs are reviewed stable with a temperature of 98.1, pulse 72, respiration 18 and blood pressure 122/62 Patient recommended to continue with NG tube due to ileus; surgery on board recommending to continue with supportive care and encourage incentive spirometry and increase ambulation Objective - Vital Signs Vital signs: Vital Signs Temp 98.1 F 09/10/20 07:08 Pulse 56 L 09/10/20 12:03 Resp 18 09/10/20 07:45 BP 122/62 09/10/20 07:08 Pulse Ox 95 09/10/20 07:08 Intake & Output 09/09/20 09/10/20 09/10/20 18:59 06:59 18:59 Output Total 600 375 Balance -600 -375 Weight 58.967 kg Output: Drainage 375 Anterior Abdomen 375 Urine 600 Other: Voiding Method Urinal Urinal Urinal # Voids 2 - Exam - Constitutional General appearance: Present: average body habitus, cooperative, no acute distress - EENT Eyes: Present: anicteric sclerae, EOMI, PERRLA, normal appearance ENT: Present: hearing grossly normal, normal oropharynx Ears: bilateral: normal - Neck Neck: Present: normal ROM. Absent: lymphadenopathy, rigidity, thyromegaly Carotids: negative: bruit present Thyroid: bilateral: normal size, negative: enlarged, nodule - Respiratory Respiratory: bilateral: CTA, negative: rales, rhonchi, wheezing - Cardiovascular Rhythm: regular Heart sounds: normal: S1, S2 Abnormal Heart Sounds: Absent: systolic murmur, diastolic murmur - Gastrointestinal General gastrointestinal: Present: normal bowel sounds, soft. Absent: distended, organomegaly, tenderness - Genitourinary Genitourinary Comment(s): deferred - Integumentary Integumentary: Present: normal turgor. Absent: jaundiced, rash, ulcer - Neurologic Neurologic: Present: CNII-XII intact. Absent: focal deficits - Musculoskeletal Musculoskeletal: Present: gait normal, strength equal bilaterally - Psychiatric Psychiatric: Present: A&O x's 3, appropriate affect, intact judgment & insight - Labs CBC & Chem 7: 09/06/20 07:27 09/10/20 06:13 Labs: Abnormal Lab Results - Last 24 Hours (Table) 09/10/20 Range/Units 06:13 Carbon Dioxide 31 H (22-30) mmol/L BUN 8 L (9-20) mg/dL Creatinine 0.48 L (0.66-1.25) mg/dL Glucose 123 H (74-99) mg/dL Microbiology - Last 24 Hours (Table) 09/03/20 12:36 Blood Culture - Final Blood No Growth after 144 hours 09/03/20 12:21 Blood Culture - Final Blood No Growth after 144 hours Assessment and Plan Assessment: 1. Intra-abdominal abscess secondary to perforated appendicitis; patient is status post ileocecectomy - Abdominal wound culture growing beta hemolytic streptococcus; patient is currently on IV antibiotics in form of Unasyn and ID recommending to continue 2. Leukocytosis; secondary to 1; we will continue with IV antibiotics and monitor CBC and CRP 3. Hyponatremia; we will supplement as tolerated and monitor electrolytes with further supplementation as needed 4. Hyperglycemia; resolved; monitor Accu-Cheks before meals and at bedtime with sliding scale as needed 5. Degenerative joint disease; stable 6. Mild protein calorie malnutrition; patient is been started on TPN; we will monitor electrolytes closely DVT prophylaxis; SCDs CODE STATUS; full code
--- NOTE | 2020-09-10 23:43 | PN ---
PROGRESS NOTE DATE OF SERVICE: 09/10/2020 REASON FOR FOLLOWUP: Intraabdominal abscess. INTERVAL HISTORY: Patient is afebrile. The patient is breathing comfortably. The patient still has the NG in. Did not have any bowel movement or passing any gas today. No chest pain, shortness of breath or cough. PHYSICAL EXAMINATION: Blood pressure 128/63 with a pulse of 68, temperature is 98.9. He is 97% on room air. General description: The patient is a middle-aged male up in the room in no distress. Respiratory system: Unlabored breathing, decreased intensity of breath sounds. No wheeze. HEART: S1, S2. Regular rate and rhythm. Abdomen soft, no tenderness. LABS: Hemoglobin is 11.8, white count 11.32. Last checked BUN of 8 creatinine 0.48. DIAGNOSTIC IMPRESSION AND PLAN: Patient with intraabdominal abscess likely from perforated appendicitis, status post ileocecectomy and drainage of the abscess. Culture positive for anaerobes and Streptococcus group F. The patient covered with Unasyn to continue while monitoring clinical course closely. Continue supportive care. MMODL / IJN: [id number] /
[2020-09-11] MEDS: HYDROmorphone 0.5 MG/0.5 ML SYRINGE IVP PRN ×7 (01:29→20:31)
[2020-09-11] MEDS: AMPICILLIN-SULBACTAM 3 GM in SODIUM CHLORIDE 0.9% 100 ML IVPB SCH ×4 (02:54→20:33)
[2020-09-11] MEDS: METOCLOPRAMIDE 5 MG/ML 2 ML VIAL IVP SCH ×4 (04:34→20:33)
[2020-09-11] MEDS: IPRATROPIUM-ALBUTEROL 3 ML NEB INHALATION SCH ×3 (07:41→19:27)
[2020-09-11 08:02] LABS: African American GFR (CKD) >90 (>60 ml/min/1.73 sqM); Anion Gap 4 mmol/L; Blood Urea Nitrogen 9 mg/dL (9-20); Calcium 8.6 mg/dL (8.4-10.2); Carbon Dioxide 31 mmol/L (22-30); Chloride 103 mmol/L (98-107); Glucose 108 mg/dL (74-99); Magnesium 2.1 mg/dL (1.6-2.3); Non-African American GFR(CKD) >90 (>60 ml/min/1.73 sqM); Phosphorus 3.4 mg/dL (2.5-4.5); Sodium 138 mmol/L (137-145)
[2020-09-11] MEDS: PANTOPRAZOLE 40 MG/10 ML VIAL IVP SCH ×2 (08:07→20:33)
[2020-09-11] MEDS: HEPARIN SODIUM,PORCINE/PF 5,000 UNIT/0.5 ML SYRINGE SQ SCH ×2 (08:08→20:33)
--- NOTE | 2020-09-11 09:14 | P.PN ---
Subjective Progress Note Date: 09/11/20 Principal diagnosis: S/P ileocecectomy The patient is seen on rounds. He has been ambulating in the ramey. Pain is well-controlled. No flatus. Objective - Vital Signs Vital signs: Vital Signs Temp 97.9 F 09/11/20 08:17 Pulse 71 09/11/20 08:17 Resp 18 09/11/20 08:17 BP 138/70 09/11/20 08:17 Pulse Ox 96 09/11/20 08:17 Intake & Output 09/10/20 09/11/20 09/11/20 18:59 06:59 18:59 Intake Total 590 0 Output Total 120 1035 Balance 470 -1035 Intake: Intake, IV Titration 590 Amount Ampicillin-Sulbactam 3 gm 100 In Sodium Chloride 0.9% 100 ml @ 200 mls/hr IVPB Q6H [facility] Rx#:[id number] Fat Emulsion 20% 250 ml @ 250 20.833 mls/hr IV DAILY@ 1600 [facility] Rx#:[id number] Mvi, Adult No.4 with Vit 240 K 10 ml Trace (Conc-1Ml/ Dose) 1 ml Sodium Chloride 4Meq/ml Vial 12 meq In Amino Acid 5%-D15w +Lytes*E* 1,000 ml @ 30 mls/hr IV .Q24H [facility] Rx#: [id number] Oral 0 Output: Gastric Drainage 110 Drainage 10 410 Anterior Abdomen 10 410 Urine 625 Other: Voiding Method Urinal Urinal # Voids 3 - Constitutional General appearance: Present: cooperative, no acute distress - Respiratory Respiratory: bilateral: CTA - Cardiovascular Rhythm: regular - Gastrointestinal General gastrointestinal: Present: absent bowel sounds, soft Localized gastrointestinal: surgical scar: diffuse (Dressings clean and dry) - Labs CBC & Chem 7: 09/06/20 07:27 09/11/20 06:56 Labs: Abnormal Lab Results - Last 24 Hours (Table) 09/11/20 Range/Units 06:56 Carbon Dioxide 31 H (22-30) mmol/L Creatinine 0.52 L (0.66-1.25) mg/dL Glucose 108 H (74-99) mg/dL Assessment and Plan (1) Small bowel obstruction Current Visit: Yes Status: Acute Code(s): K56.609 - UNSP INTESTNL OBST, UNSP TO PARTIAL VERSUS COMPLETE OBST SNOMED Code(s): 300724368 Plan: Patient continues to expected ileus. Await return of bowel function. He is receiving TPN and other supportive care. Questions were encouraged and answered.
[2020-09-11] MEDS: LACTATED RINGERS 1,000 ML IV SCH (12:24)
[2020-09-11] MEDS ORDERED: MVI, ADULT NO.4 WITH VIT K 10 ML, TRACE (CONC-1ML/DOSE) 1 ML, SODIUM CHLORIDE 4MEQ/ML V... IV SCH ×8 (12:30→16:00)
[2020-09-11] MEDS ORDERED: MVI, ADULT NO.4 WITH VIT K 10 ML, TRACE (CONC-1ML/DOSE) 1 ML in AMINO ACID 5%-D15W+LYTE... IV SCH ×3 (16:00)
[2020-09-11] MEDS: FAT EMULSION 20% 250 ML IV SCH (16:03)
--- NOTE | 2020-09-11 19:01 | PN ---
PROGRESS NOTE DATE OF SERVICE: 09/11/2020 REASON FOR FOLLOW UP: Intraabdominal abscess. INTERVAL HISTORY: Patient is afebrile. The patient is breathing comfortably. Patient denies any chest pain. Some abdominal discomfort, still has the NG in and did not have any bowel movement. Overall not feeling that well. PHYSICAL EXAMINATION: Blood pressure 118/67, pulse of 55, temperature 98.6. He is 97% on room air. General description: The patient is a middle-aged male lying in no distress. Respiratory system: Unlabored breathing. Decreased intensity of breath sounds in the bases. No wheeze. HEART: S1, S2. Regular rate. ABDOMEN: Soft, mildly distended. No guarding. No rigidity. LABS: BUN of 9, creatinine 0.52. DIAGNOSTIC IMPRESSION AND PLAN: Patient with intraabdominal abscess from likely perforated appendicitis status post appendectomy and drainage of the abscess. Culture with group F strep and anaerobes. Patient is covered with Unasyn. Waiting for the resumption of his all activity and continue supportive care. MMODL / IJN: [id number] /
[2020-09-12] MEDS: HYDROmorphone 0.5 MG/0.5 ML SYRINGE IVP PRN ×8 (00:11→21:27)
--- NOTE | 2020-09-12 00:54 | P.PN ---
Subjective Progress Note Date: 09/11/20 Principal diagnosis: Intra-abdominal abscess secondary to perforated appendicitis Leukocytosis Hyponatremia Mild protein calorie malnutrition 55-year-old male patient admitted with acute abdominal abscess, possibly secondary to perforation during surgery Patient remains on broad-spectrum IV antibiotics; abdominal surgical site cultures reveal beta-hemolytic streptococcus; ID on board and patient is maintained on broad subcu antibiotics, IV Unasyn 09/09/2020 Patient is seen and evaluated in room at bedside; no specific complaints Vital signs reveal temperature of 98.2, pulse of 51, respiration 18 and blood pressure of 118/66; patient is saturating 93% on room air Lab review shows a BUN of 8 with creatinine of 0.4 Patient with intra-abdominal abscess from possibly perforated appendicitis and is status post ileocecectomy; abdominal culture reveals beta-hemolytic streptococcus and anaerobes; patient is currently on IV Unasyn; ID on board and recommending to continue current antibiotics. Further recommendations forth coming 09/10/2020 Patient is seen and evaluated in room at bedside; patient is status post ileocecectomy; continues to have NG tube to suctioning; patient's NG tube was clamped yesterday but did not tolerate and was placed back to suction; patient reports ambulating in the hallway but no bowel movement or flatus at this time Vital signs are reviewed stable with a temperature of 98.1, pulse 72, respiration 18 and blood pressure 122/62 Patient recommended to continue with NG tube due to ileus; surgery on board recommending to continue with supportive care and encourage incentive spirometry and increase ambulation 09/11/2020 Patient reports no complaints except for some abdominal discomfort; continues to have NGT to succtioning; no flatus or BM Vital signs are reviewed and stable; ; patient with intra-abdominal abscess from possibly perforated appendicitis and is status post ileocecectomy; abdominal culture reveals beta-hemolytic streptococcus and anaerobes; patient is currently on IV Unasyn patient recommended to continue with increased activity Objective - Vital Signs Vital signs: Vital Signs Temp 97.9 F 09/11/20 08:17 Pulse 71 09/11/20 08:17 Resp 18 09/11/20 08:17 BP 138/70 09/11/20 08:17 Pulse Ox 96 09/11/20 08:17 Intake & Output 09/10/20 09/11/20 09/11/20 18:59 06:59 18:59 Intake Total 590 0 Output Total 120 1035 Balance 470 -1035 Intake: Intake, IV Titration 590 Amount Ampicillin-Sulbactam 3 gm 100 In Sodium Chloride 0.9% 100 ml @ 200 mls/hr IVPB Q6H [facility] Rx#:[id number] Fat Emulsion 20% 250 ml @ 250 20.833 mls/hr IV DAILY@ 1600 [facility] Rx#:[id number] [facility]vi, Adult No.4 with Vit 240 K 10 ml Trace (Conc-1Ml/ Dose) 1 ml Sodium Chloride 4Meq/ml Vial 12 meq In Amino Acid 5%-D15w +Lytes*E* 1,000 ml @ 30 mls/hr IV .Q24H [facility] Rx#: [id number] Oral 0 Output: Gastric Drainage 110 Drainage 10 410 Anterior Abdomen 10 410 Urine 625 Other: Voiding Method Urinal Urinal Urinal # Voids 3 - Exam - Constitutional General appearance: Present: average body habitus, cooperative, no acute distress - EENT Eyes: Present: anicteric sclerae, EOMI, PERRLA, normal appearance ENT: Present: hearing grossly normal, normal oropharynx Ears: bilateral: normal - Neck Neck: Present: normal ROM. Absent: lymphadenopathy, rigidity, thyromegaly Carotids: negative: bruit present Thyroid: bilateral: normal size, negative: enlarged, nodule - Respiratory Respiratory: bilateral: CTA, negative: rales, rhonchi, wheezing - Cardiovascular Rhythm: regular Heart sounds: normal: S1, S2 Abnormal Heart Sounds: Absent: systolic murmur, diastolic murmur - Gastrointestinal General gastrointestinal: Present: normal bowel sounds, soft. Absent: distended, organomegaly, tenderness - Genitourinary Genitourinary Comment(s): deferred - Integumentary Integumentary: Present: normal turgor. Absent: jaundiced, rash, ulcer - Neurologic Neurologic: Present: CNII-XII intact. Absent: focal deficits - Musculoskeletal Musculoskeletal: Present: gait normal, strength equal bilaterally - Psychiatric Psychiatric: Present: A&O x's 3, appropriate affect, intact judgment & insight - Labs CBC & Chem 7: 09/06/20 07:27 09/11/20 06:56 Labs: Abnormal Lab Results - Last 24 Hours (Table) 09/11/20 Range/Units 06:56 Carbon Dioxide 31 H (22-30) mmol/L Creatinine 0.52 L (0.66-1.25) mg/dL Glucose 108 H (74-99) mg/dL Assessment and Plan Assessment: 1. Intra-abdominal abscess secondary to perforated appendicitis; patient is status post ileocecectomy - Abdominal wound culture growing beta hemolytic streptococcus; patient is currently on IV antibiotics in form of Unasyn and ID recommending to continue 2. Leukocytosis; secondary to 1; we will continue with IV antibiotics and monitor CBC and CRP 3. Hyponatremia; we will supplement as tolerated and monitor electrolytes with further supplementation as needed 4. Hyperglycemia; resolved; monitor Accu-Cheks before meals and at bedtime with sliding scale as needed 5. Degenerative joint disease; stable 6. Mild protein calorie malnutrition; patient is been started on TPN; we will monitor electrolytes closely DVT prophylaxis; SCDs CODE STATUS; full code
[2020-09-12] MEDS: AMPICILLIN-SULBACTAM 3 GM in SODIUM CHLORIDE 0.9% 100 ML IVPB SCH ×4 (03:00→20:03)
[2020-09-12] MEDS: METOCLOPRAMIDE 5 MG/ML 2 ML VIAL IVP SCH ×4 (03:00→20:03)
[2020-09-12] MEDS: LACTATED RINGERS 1,000 ML IV SCH ×2 (03:01→15:54)
[2020-09-12] MEDS: MVI, ADULT NO.4 WITH VIT K 10 ML, TRACE (CONC-1ML/DOSE) 1 ML, SODIUM CHLORIDE 4MEQ/ML V... IV SCH ×4 (06:25)
[2020-09-12 06:32] LABS: African American GFR (CKD) >90 (>60 ml/min/1.73 sqM); Anion Gap 3 mmol/L; Blood Urea Nitrogen 13 mg/dL (9-20); Calcium 8.7 mg/dL (8.4-10.2); Carbon Dioxide 31 mmol/L (22-30); Chloride 104 mmol/L (98-107); Glucose 114 mg/dL (74-99); Magnesium 2.1 mg/dL (1.6-2.3); Non-African American GFR(CKD) >90 (>60 ml/min/1.73 sqM); Phosphorus 3.4 mg/dL (2.5-4.5); Potassium 4.3 mmol/L (3.5-5.1); Sodium 138 mmol/L (137-145)
[2020-09-12] MEDS: IPRATROPIUM-ALBUTEROL 3 ML NEB INHALATION SCH ×3 (08:40→20:17)
[2020-09-12] MEDS: HEPARIN SODIUM,PORCINE/PF 5,000 UNIT/0.5 ML SYRINGE SQ SCH ×2 (08:49→20:03)
[2020-09-12] MEDS: PANTOPRAZOLE 40 MG/10 ML VIAL IVP SCH ×2 (08:49→20:03)
--- NOTE | 2020-09-12 15:42 | P.PN ---
Subjective Progress Note Date: 09/12/20 This is a 55-year-old male patient who was recently admitted with acute abdominal abscess, possibly secondary to perforation during surgery. Patient remains on broad-spectrum IV antibiotics; abdominal surgical site cultures reveal beta-hemolytic streptococcus; ID on board and patient is maintained on br oad spectrum antibiotics, IV Unasyn 09/09/2020 Patient is seen and evaluated in room at bedside; no specific complaints Vital signs reveal temperature of 98.2, pulse of 51, respiration 18 and blood p ressure of 118/66; patient is saturating 93% on room air Lab review shows a BUN of 8 with creatinine of 0.4 Patient with intra-abdominal abscess from possibly perforated appendicitis and is status post ileocecectomy; abdominal culture reveals beta-hemolytic streptococcus and anaerobes; patient is currently on IV Unasyn; ID on board and recommending to continue current antibiotics. Further recommendations forthcoming 09/10/2020 Patient is seen and evaluated in room at bedside; patient is status post ileocecectomy; continues to have NG tube to suctioning; patient's NG tube was clamped yesterday but did not tolerate and was placed back to suction; patient reports ambulating in the hallway but no bowel movement or flatus at this time Vital signs are reviewed stable with a temperature of 98.1, pulse 72, respiration 18 and blood pressure 122/62 Patient recommended to continue with NG tube due to ileus; surgery on board recommending to continue with supportive care and encourage incentive spirometry and increase ambulation 09/11/2020 Patient reports no complaints except for some abdominal discomfort; continues to have NGT to succtioning; no flatus or BM Vital signs are reviewed and stable; ; patient with intra-abdominal abscess from possibly perforated appendicitis and is status post ileocecectomy; abdominal culture reveals beta-hemolytic streptococcus and anaerobes; patient is currently on IV Unasyn patient recommended to continue with increased activity 09/12/2020 Patient is seen and evaluated and follow-up today continues to have NG tube and is being closely monitored. Surgery following closely as well. Patient is maintained on IV Unasyn and will continue and infectious disease is following. No reports of gas or bowel movements as of yet. Sodium today is 138 with a potassium of 4.3 current creatinine is 0.58 and magnesium is 2.1. Patient is afebrile. Review of systems: Constitutional: No reports of fatigue, fever, or chills Cardiovascular: No reports of chest pain or palpitations Respiratory: No reports of shortness of breath or cough GI: No reports of nausea, vomiting, or diarrhea, reports continued abdominal discomfort and drainage noted in the [place] drain : No reports of dysuria or retention Neurovascular: No reports of weakness or numbness All medications have been reviewed Objective - Vital Signs Vital signs: Vital Signs Temp 98.4 F 09/12/20 08:00 Pulse 50 L 09/12/20 08:00 Resp 17 09/12/20 08:00 BP 143/74 09/12/20 08:00 Pulse Ox 97 09/12/20 08:00 Intake & Output 09/11/20 09/12/20 09/12/20 18:59 06:59 18:59 Intake Total 50 Output Total 350 Balance -300 Intake: Oral 50 Output: Gastric Drainage 350 Other: Voiding Method Urinal Urinal # Voids 2 - Exam Gen: This is a 85-year-old male sitting up in bed awake, alert and oriented 3, thin built. HEENT: Head is atraumatic, normocephalic. Pupils equal, round. Sclerae is anicteric. NECK: Supple. No JVD. No lymphadenopathy. No thyromegaly. LUNGS: Manage breath sounds bilaterally with no wheezing or rhonchi noted. No intercostal retractions. HEART: S1, S2 are muffled ABDOMEN: Soft. Thin. Sluggish bowel sounds. No masses. Mild tenderness on palpation. EXTREMITIES: No pedal edema. No calf tenderness. NEUROLOGICAL: Patient is awake, alert and oriented x3. Cranial nerves 2 through 12 are grossly intact. - Labs CBC & Chem 7: 09/06/20 07:27 09/12/20 05:53 Labs: Abnormal Lab Results - Last 24 Hours (Table) 09/12/20 Range/Units 05:53 Carbon Dioxide 31 H (22-30) mmol/L Creatinine 0.58 L (0.66-1.25) mg/dL Glucose 114 H (74-99) mg/dL Assessment and Plan Assessment: Intra-abdominal abscess secondary to perforated appendicitis; status post ileocecectomy with abdominal wound cultures growing beta-hemolytic Streptococcus Leukocytosis secondary to above Hyponatremia, improved Hyperglycemia, resolved Degenerative joint disease Mild protein calorie malnutrition DVT prophylaxis Full code Plan: Continue with current medications and current management. Will continue to follow along with surgery and infectious disease closely. Patient is maintained on TPN and continues with NG tube until resolution of bowel activity is noted. Patient states he is not passing gas and has not had a bowel movement as of yet. Basic metabolic panel within normal limits and will repeat labs in continue to monitor closely. Instructed the patient to continue to increase activity as tolerated and continue using incentive spirometer at least 10 times every hour while awake. Thank you for this consultation.
[2020-09-12] MEDS: FAT EMULSION 20% 250 ML IV SCH (15:54)
--- NOTE | 2020-09-12 16:42 | P.PN ---
Subjective Progress Note Date: 09/12/20 Patient is feeling well, pain controlled, no acute events overnight, small amount of flatus today Objective - Vital Signs Vital signs: Vital Signs Temp 98.1 F 09/12/20 14:00 Pulse 54 L 09/12/20 14:00 Resp 16 09/12/20 14:00 BP 155/79 09/12/20 14:00 Pulse Ox 98 09/12/20 14:00 Intake & Output 09/11/20 09/12/20 09/12/20 18:59 06:59 18:59 Intake Total 50 Output Total 350 Balance -300 Weight 58.967 kg Intake: Oral 50 Output: Gastric Drainage 350 Other: Voiding Method Urinal Urinal Urinal # Voids 2 2 - Constitutional General appearance: Present: cooperative - Respiratory Details: nonlabored - Cardiovascular Rhythm: regular - Gastrointestinal Gastrointestinal Comment(s): S/NT/ND [place] serosang - Psychiatric Psychiatric: Present: A&O x's 3 - Labs CBC & Chem 7: 09/06/20 07:27 09/12/20 05:53 Labs: Abnormal Lab Results - Last 24 Hours (Table) 09/12/20 Range/Units 05:53 Carbon Dioxide 31 H (22-30) mmol/L Creatinine 0.58 L (0.66-1.25) mg/dL Glucose 114 H (74-99) mg/dL Assessment and Plan Assessment: S/p Ileocecectomy Plan: Continue NGT to LIS if patient has more flatus will try clamping NGT today. Cont TPN. ABX per ID
--- NOTE | 2020-09-12 19:22 | PN ---
PROGRESS NOTE DATE OF SERVICE: 09/12/2020 REASON FOR FOLLOWUP: Intraabdominal abscess from perforated appendicitis. INTERVAL HISTORY: Patient is afebrile. The patient is breathing comfortably. The patient denies having any chest pain. No shortness of breath or cough. Abdominal pain is currently controlled. Still has the NG, has not passed any gas. Did not have any bowel movement. PHYSICAL EXAMINATION: Blood pressure 155/79 with a pulse of 54, temperature 98.1. He is 98% on room air. General description: The patient is a middle-aged male up in the room in no distress. Respiratory system: Unlabored breathing, decreased breath sounds at bases. No wheeze. HEART: S1, S2. Regular rate and rhythm. ABDOMEN: Soft. No tenderness. EXTREMITIES: No edema of the feet. LABS: BUN of 13, creatinine 0.58. DIAGNOSTIC IMPRESSION AND PLAN: Patient with intraabdominal abscess likely from perforated appendicitis status post appendicectomy. Abdominal culture positive for Streptococcus F and anaerobes. Patient is covered with Unasyn to continue while waiting for the resumption of his GI activity and continue supportive care. MMODL / IJN: [id number] /
[2020-09-13] MEDS: HYDROmorphone 0.5 MG/0.5 ML SYRINGE IVP PRN ×7 (01:13→20:53)
[2020-09-13] MEDS: LACTATED RINGERS 1,000 ML IV SCH ×2 (03:05→17:15)
[2020-09-13] MEDS: MVI, ADULT NO.4 WITH VIT K 10 ML, TRACE (CONC-1ML/DOSE) 1 ML, SODIUM CHLORIDE 4MEQ/ML V... IV SCH ×8 (03:30→17:18)
[2020-09-13] MEDS: METOCLOPRAMIDE 5 MG/ML 2 ML VIAL IVP SCH ×4 (04:48→20:53)
[2020-09-13] MEDS: AMPICILLIN-SULBACTAM 3 GM in SODIUM CHLORIDE 0.9% 100 ML IVPB SCH ×4 (04:48→19:36)
[2020-09-13 05:51] LABS: African American GFR (CKD) >90 (>60 ml/min/1.73 sqM); Anion Gap 6 mmol/L; Blood Urea Nitrogen 12 mg/dL (9-20); Calcium 9.1 mg/dL (8.4-10.2); Carbon Dioxide 28 mmol/L (22-30); Chloride 102 mmol/L (98-107); Glucose 104 mg/dL (74-99); Non-African American GFR(CKD) >90 (>60 ml/min/1.73 sqM); Phosphorus 3.4 mg/dL (2.5-4.5); Potassium 4.2 mmol/L (3.5-5.1); Sodium 136 mmol/L (137-145)
[2020-09-13] MEDS: HEPARIN SODIUM,PORCINE/PF 5,000 UNIT/0.5 ML SYRINGE SQ SCH ×2 (07:44→19:36)
[2020-09-13] MEDS: PANTOPRAZOLE 40 MG/10 ML VIAL IVP SCH ×2 (07:44→19:36)
[2020-09-13] MEDS: IPRATROPIUM-ALBUTEROL 3 ML NEB INHALATION SCH ×3 (09:19→20:52)
--- NOTE | 2020-09-13 13:51 | P.PN ---
Subjective Progress Note Date: 09/13/20 This is a 55-year-old male patient who was recently admitted with acute abdominal abscess, possibly secondary to perforation during surgery. Patient remains on broad-spectrum IV antibiotics; abdominal surgical site cultures reveal beta-hemolytic streptococcus; ID on board and patient is maintained on br oad spectrum antibiotics, IV Unasyn 09/09/2020 Patient is seen and evaluated in room at bedside; no specific complaints Vital signs reveal temperature of 98.2, pulse of 51, respiration 18 and blood p ressure of 118/66; patient is saturating 93% on room air Lab review shows a BUN of 8 with creatinine of 0.4 Patient with intra-abdominal abscess from possibly perforated appendicitis and is status post ileocecectomy; abdominal culture reveals beta-hemolytic streptococcus and anaerobes; patient is currently on IV Unasyn; ID on board and recommending to continue current antibiotics. Further recommendations forthcoming 09/10/2020 Patient is seen and evaluated in room at bedside; patient is status post ileocecectomy; continues to have NG tube to suctioning; patient's NG tube was clamped yesterday but did not tolerate and was placed back to suction; patient reports ambulating in the hallway but no bowel movement or flatus at this time Vital signs are reviewed stable with a temperature of 98.1, pulse 72, respiration 18 and blood pressure 122/62 Patient recommended to continue with NG tube due to ileus; surgery on board recommending to continue with supportive care and encourage incentive spirometry and increase ambulation 09/11/2020 Patient reports no complaints except for some abdominal discomfort; continues to have NGT to succtioning; no flatus or BM Vital signs are reviewed and stable; ; patient with intra-abdominal abscess from possibly perforated appendicitis and is status post ileocecectomy; abdominal culture reveals beta-hemolytic streptococcus and anaerobes; patient is currently on IV Unasyn patient recommended to continue with increased activity 09/12/2020 Patient is seen and evaluated and follow-up today continues to have NG tube and is being closely monitored. Surgery following closely as well. Patient is maintained on IV Unasyn and will continue and infectious disease is following. No reports of gas or bowel movements as of yet. Sodium today is 138 with a potassium of 4.3 current creatinine is 0.58 and magnesium is 2.1. Patient is afebrile. 09/13/2020 Patient is seen this morning and states he has started passing gas with positive bowel sounds noted on exam. Patient continues with NG tube and drainage has decreased in output and will continue for now with surgery following. Occasional NG clamping per surgery. Infectious disease following and patient is maintained on IV antibiotics and will continue until bowel functions returned. Patient also continues on TPN and will continue. Patient has been up and walking with no difficulties. Sodium today is 136 with a potassium of 4.2 creatinine is within normal limits at 0.53. Patient remains afebrile. Review of systems: Constitutional: No reports of fatigue, fever, or chills Cardiovascular: No reports of chest pain or palpitations Respiratory: No reports of shortness of breath or cough GI: No reports of nausea, vomiting, or diarrhea, reports passing gas with no bowel movement as of yet : No reports of dysuria or retention Neurovascular: No reports of weakness or numbness All medications have been reviewed Objective - Vital Signs Vital signs: Vital Signs Temp 97.9 F 09/13/20 08:00 Pulse 53 L 09/13/20 08:00 Resp 18 09/13/20 08:00 BP 128/76 09/13/20 08:00 Pulse Ox 96 09/13/20 08:00 Intake & Output 09/12/20 09/13/20 09/13/20 18:59 06:59 18:59 Intake Total 2364 Output Total 800 Balance 1564 Weight 58.967 kg Intake: Intake, IV Titration 2364 Amount Ampicillin-Sulbactam 3 gm 200 In Sodium Chloride 0.9% 100 ml @ 200 mls/hr IVPB Q6H [facility] Rx#:[id number] Fat Emulsion 20% 250 ml @ 250 20.833 mls/hr IV DAILY@ 1600 [facility] Rx#:[id number] Lactated Ringers 1,000 ml 900 @ 75 mls/hr IV .[id number] [facility] Rx#:[id number] Mvi, Adult No.4 with Vit 1014 K 10 ml Trace (Conc-1Ml/ Dose) 1 ml Sodium Chloride 4Meq/ml Vial 12 meq In Amino Acid 5%-D15w +Lytes*E* 1,000 ml @ 60 mls/hr IV .[id number] [facility] Rx #:[id number] Output: Urine 800 Other: Voiding Method Urinal Urinal # Voids 2 3 - Exam Gen: This is a 85-year-old male sitting up in bed awake, alert and oriented 3, thin built. HEENT: Head is atraumatic, normocephalic. Pupils equal, round. Sclerae is anicteric. NECK: Supple. No JVD. No lymphadenopathy. No thyromegaly. LUNGS: Diminished breath sounds bilaterally with no wheezing or rhonchi noted. No intercostal retractions. HEART: S1, S2 are muffled ABDOMEN: Soft. Thin. Positive bowel sounds noted on exam. No masses. Mild tenderness on palpation. EXTREMITIES: No pedal edema. No calf tenderness. NEUROLOGICAL: Patient is awake, alert and oriented x3. Cranial nerves 2 through 12 are grossly intact. - Labs CBC & Chem 7: 09/06/20 07:27 09/13/20 04:55 Labs: Abnormal Lab Results - Last 24 Hours (Table) 09/13/20 Range/Units 04:55 Sodium 136 L (137-145) mmol/L Creatinine 0.53 L (0.66-1.25) mg/dL Glucose 104 H (74-99) mg/dL Assessment and Plan Assessment: Intra-abdominal abscess secondary to perforated appendicitis; status post ileocecectomy with abdominal wound cultures growing beta-hemolytic Streptococcus Leukocytosis secondary to above Hyponatremia, improved Hyperglycemia, resolved Degenerative joint disease Mild protein calorie malnutrition DVT prophylaxis Full code Plan: Continue with current medications and current management. Will continue to follow along with surgery and infectious disease closely. Patient is maintained on TPN and continues with NG tube until resolution of bowel activity is noted. Patient states he is passing gas and has not had a bowel movement as of yet. Positive bowel sounds noted on exam. Basic metabolic panel within normal limits and will repeat labs in continue to monitor closely. Instructed the patient to continue to increase activity as tolerated and continue using incentive spirometer at least 10 times every hour while awake. Continue with NG tube for now with occasional clamping until bowel functioning resumed. Thank you for this consultation.
[2020-09-13] MEDS: FAT EMULSION 20% 250 ML IV SCH (15:26)
--- NOTE | 2020-09-13 19:59 | PN ---
PROGRESS NOTE DATE OF SERVICE: 09/13/2020 REASON FOR FOLLOWUP: Intraabdominal abscess from perforated appendicitis. INTERVAL HISTORY: Patient is afebrile. The patient is breathing comfortably. The patient is still complaining of abdominal discomfort and having a bowel movement. Has passed some gas. Still has the NG in. No chest pain, shortness of breath or cough. PHYSICAL EXAMINATION: Blood pressure is 119/65, pulse of 55. Temperature 97.9. He is 93% on room air. General description: The patient is a middle-aged male up in the chair in no distress. Respiratory system: Unlabored breath, with decreased intensity of breath sounds. No wheeze. Heart S1, S2. Regular rate and rhythm. ABDOMEN: Soft, no tenderness. LABS: Hemoglobin 11.1, white count 9.32, BUN of 12, creatinine 0.53. DIAGNOSTIC IMPRESSION AND PLAN: Patient with intraabdominal abscess, likely for perforated appendicitis. Culture positive for strep and anaerobes. Patient is on Unasyn. Still having a problem with ileus. We will switch him over to Rocephin and Flagyl combination and see response. Monitor clinical course closely. MMODL / IJN: [id number] /
[2020-09-14] MEDS: HYDROmorphone 0.5 MG/0.5 ML SYRINGE IVP PRN ×8 (00:18→22:36)
[2020-09-14] MEDS: AMPICILLIN-SULBACTAM 3 GM in SODIUM CHLORIDE 0.9% 100 ML IVPB SCH ×4 (02:04→20:02)
[2020-09-14] MEDS: METOCLOPRAMIDE 5 MG/ML 2 ML VIAL IVP SCH ×4 (03:12→22:34)
[2020-09-14] MEDS: LACTATED RINGERS 1,000 ML IV SCH ×2 (03:12→18:05)
[2020-09-14 06:58] LABS: African American GFR (CKD) >90 (>60 ml/min/1.73 sqM); Anion Gap 4 mmol/L; Blood Urea Nitrogen 15 mg/dL (9-20); Calcium 8.9 mg/dL (8.4-10.2); Carbon Dioxide 29 mmol/L (22-30); Chloride 102 mmol/L (98-107); Glucose 117 mg/dL (74-99); Magnesium 2.1 mg/dL (1.6-2.3); Non-African American GFR(CKD) >90 (>60 ml/min/1.73 sqM); Phosphorus 3.9 mg/dL (2.5-4.5); Potassium 4.3 mmol/L (3.5-5.1); Sodium 135 mmol/L (137-145)
[2020-09-14] MEDS: HEPARIN SODIUM,PORCINE/PF 5,000 UNIT/0.5 ML SYRINGE SQ SCH ×2 (08:50→19:52)
[2020-09-14] MEDS: PANTOPRAZOLE 40 MG/10 ML VIAL IVP SCH ×2 (08:50→20:02)
[2020-09-14] MEDS: IPRATROPIUM-ALBUTEROL 3 ML NEB INHALATION SCH ×3 (09:15→22:07)
--- NOTE | 2020-09-14 10:18 | P.PN ---
Subjective Progress Note Date: 09/13/20 Patient is feeling well, pain controlled, no acute events overnight, more flatus today Objective - Vital Signs Vital signs: Vital Signs Temp 97.7 F 09/14/20 08:00 Pulse 53 L 09/14/20 09:23 Resp 16 09/14/20 08:00 BP 103/63 09/14/20 08:00 Pulse Ox 95 09/14/20 08:00 Intake & Output 09/13/20 09/14/20 09/14/20 18:59 06:59 18:59 Intake Total 828 Balance 828 Intake: Intake, IV Titration 828 Amount Mvi, Adult No.4 with Vit 828 K 10 ml Trace (Conc-1Ml/ Dose) 1 ml Sodium Chloride 4Meq/ml Vial 12 meq In Amino Acid 5%-D15w +Lytes*E* 1,000 ml @ 60 mls/hr IV .[id number] [facility] Rx #:[id number] Oral 0 Other: Voiding Method Urinal Toilet Toilet Urinal Urinal # Voids 3 3 - Cardiovascular Rhythm: regular - Gastrointestinal Gastrointestinal Comment(s): S/ND Tc serosang - Psychiatric Psychiatric: Present: A&O x's 3 - Labs CBC & Chem 7: 09/06/20 07:27 09/14/20 05:59 Labs: Abnormal Lab Results - Last 24 Hours (Table) 09/14/20 Range/Units 05:59 Sodium 135 L (137-145) mmol/L Creatinine 0.60 L (0.66-1.25) mg/dL Glucose 117 H (74-99) mg/dL Assessment and Plan Assessment: S/p Ileocecectomy Plan: clamp NGT and trial clears, if tolerated DC NGT. Cont TPN. ABX per ID
[2020-09-14] MEDS: MVI, ADULT NO.4 WITH VIT K 10 ML, TRACE (CONC-1ML/DOSE) 1 ML, SODIUM CHLORIDE 4MEQ/ML V... IV SCH ×4 (12:00)
--- NOTE | 2020-09-14 14:40 | P.PN ---
Subjective Progress Note Date: 09/14/20 This is a 55-year-old male patient who was recently admitted with acute abdominal abscess, possibly secondary to perforation during surgery. Patient remains on broad-spectrum IV antibiotics; abdominal surgical site cultures reveal beta-hemolytic streptococcus; ID on board and patient is maintained on br oad spectrum antibiotics, IV Unasyn 09/09/2020 Patient is seen and evaluated in room at bedside; no specific complaints Vital signs reveal temperature of 98.2, pulse of 51, respiration 18 and blood p ressure of 118/66; patient is saturating 93% on room air Lab review shows a BUN of 8 with creatinine of 0.4 Patient with intra-abdominal abscess from possibly perforated appendicitis and is status post ileocecectomy; abdominal culture reveals beta-hemolytic streptococcus and anaerobes; patient is currently on IV Unasyn; ID on board and recommending to continue current antibiotics. Further recommendations forthcoming 09/10/2020 Patient is seen and evaluated in room at bedside; patient is status post ileocecectomy; continues to have NG tube to suctioning; patient's NG tube was clamped yesterday but did not tolerate and was placed back to suction; patient reports ambulating in the hallway but no bowel movement or flatus at this time Vital signs are reviewed stable with a temperature of 98.1, pulse 72, respiration 18 and blood pressure 122/62 Patient recommended to continue with NG tube due to ileus; surgery on board recommending to continue with supportive care and encourage incentive spirometry and increase ambulation 09/11/2020 Patient reports no complaints except for some abdominal discomfort; continues to have NGT to succtioning; no flatus or BM Vital signs are reviewed and stable; ; patient with intra-abdominal abscess from possibly perforated appendicitis and is status post ileocecectomy; abdominal culture reveals beta-hemolytic streptococcus and anaerobes; patient is currently on IV Unasyn patient recommended to continue with increased activity 09/12/2020 Patient is seen and evaluated and follow-up today continues to have NG tube and is being closely monitored. Surgery following closely as well. Patient is maintained on IV Unasyn and will continue and infectious disease is following. No reports of gas or bowel movements as of yet. Sodium today is 138 with a potassium of 4.3 current creatinine is 0.58 and magnesium is 2.1. Patient is afebrile. 09/13/2020 Patient is seen this morning and states he has started passing gas with positive bowel sounds noted on exam. Patient continues with NG tube and drainage has decreased in output and will continue for now with surgery following. Occasional NG clamping per surgery. Infectious disease following and patient is maintained on IV antibiotics and will continue until bowel functions returned. Patient also continues on TPN and will continue. Patient has been up and walking with no difficulties. Sodium today is 136 with a potassium of 4.2 creatinine is within normal limits at 0.53. Patient remains afebrile. 09/14/2020 Patient is seen this morning up and walking looking well today. NG tube was discontinued and patient states that was a huge improvement from his discomfort. Patient continues on TPN for now and initiating soft diet per surgery recommendations and will wean TPN as tolerated. Sodium today 135 with a potassium of 4.3 and current creatinine is 0.6, magnesium is 2.1. Vital signs are stable. Patient is afebrile. Patient continues on IV Unasyn and will continue for now. Infectious disease is following. Patient reports passing gas and continues to have bowel sounds noted although no reports of bowel movement as of yet. Again encourage the patient to increase activity as tolerated. Review of systems: Constitutional: No reports of fatigue, fever, or chills Cardiovascular: No reports of chest pain or palpitations Respiratory: No reports of shortness of breath or cough GI: No reports of nausea, vomiting, or diarrhea, reports passing gas with no bowel movement as of yet : No reports of dysuria or retention Neurovascular: No reports of weakness or numbness All medications have been reviewed Objective - Vital Signs Vital signs: Vital Signs Temp 97.7 F 09/14/20 08:00 Pulse 80 09/14/20 08:00 Resp 16 09/14/20 08:00 BP 103/63 09/14/20 08:00 Pulse Ox 95 09/14/20 08:00 Intake & Output 09/13/20 09/14/20 09/14/20 18:59 06:59 18:59 Intake Total 828 Balance 828 Intake: Intake, IV Titration 828 Amount Mvi, Adult No.4 with Vit 828 K 10 ml Trace (Conc-1Ml/ Dose) 1 ml Sodium Chloride 4Meq/ml Vial 12 meq In Amino Acid 5%-D15w +Lytes*E* 1,000 ml @ 60 mls/hr IV .[id number] [facility] Rx #:[id number] Oral 0 Other: Voiding Method Urinal Toilet Urinal # Voids 3 3 - Exam Gen: This is a 55-year-old male currently walking around the room, awake, alert and oriented 3, thin built. HEENT: Head is atraumatic, normocephalic. Pupils equal, round. Sclerae is anicteric. NECK: Supple. No JVD. No lymphadenopathy. No thyromegaly. LUNGS: Diminished breath sounds bilaterally with no wheezing or rhonchi noted. No intercostal retractions. HEART: S1, S2 are muffled ABDOMEN: Soft. Thin. Positive bowel sounds noted on exam. No masses. Mild tenderness on palpation. EXTREMITIES: No pedal edema. No calf tenderness. NEUROLOGICAL: Patient is awake, alert and oriented x3. Cranial nerves 2 through 12 are grossly intact. - Labs CBC & Chem 7: 09/06/20 07:27 09/14/20 05:59 Labs: Abnormal Lab Results - Last 24 Hours (Table) 09/14/20 Range/Units 05:59 Sodium 135 L (137-145) mmol/L Creatinine 0.60 L (0.66-1.25) mg/dL Glucose 117 H (74-99) mg/dL Assessment and Plan Assessment: Intra-abdominal abscess secondary to perforated appendicitis; status post ileocecectomy with abdominal wound cultures growing beta-hemolytic Streptococcus Leukocytosis secondary to above Hyponatremia, improved Hyperglycemia, resolved Degenerative joint disease Mild protein calorie malnutrition DVT prophylaxis Full code Plan: Continue with current medications and current management. Will continue to follow along with surgery and infectious disease closely. Patient is maintained on TPN and being advanced to soft diet and will monitor for tolerance. Patient states he is passing gas and has not had a bowel movement as of yet. Positive bowel sounds noted on exam. Basic metabolic panel within normal limits and will repeat labs in continue to monitor closely. Instructed the patient to continue to increase activity as tolerated and continue using incentive spirometer at least 10 times every hour while awake. NG tube discontinued and will wean TPN slowly per surgical recommendations. Thank you for this consultation.
[2020-09-14] MEDS: FAT EMULSION 20% 250 ML IV SCH (15:03)
--- NOTE | 2020-09-14 15:42 | PN ---
PROGRESS NOTE DATE OF SERVICE: 09/14/2020 REASON FOR FOLLOWUP: Intraabdominal abscess. INTERVAL HISTORY: Patient is afebrile. The patient is feeling better. His NG is out. The patient denies having any chest pain. No shortness of breath or cough. Denies any worsening abdominal pain. Has been passing gas. Did not have any BM yet. PHYSICAL EXAMINATION: Blood pressure 103/63 with a pulse of 87. Temperature 97.7. He is 95% on room air. General description: The patient is a middle-aged male up in the chair in no distress. Respiratory system: Unlabored breathing with decreased breath sounds in the base, with no wheeze. Heart S1, S2. Regular rate and rhythm. ABDOMEN: Soft, no tenderness. EXTREMITIES: No edema of the feet. LABS: BUN of 15, creatinine 0.60. DIAGNOSTIC IMPRESSION AND PLAN: Patient with an intraabdominal abscess, likely perforated the patient is status post ileocecectomy. Abdominal culture with Group F Strep and anaerobes. Patient is on Unasyn, could not use Rocephin because of the PPI the patient is on. Hopefully transition to oral antibiotics on discharge depending on clinical response. Continue supportive care. MMODL / IJN: [id number] /
--- NOTE | 2020-09-14 15:45 | P.PN ---
Subjective Progress Note Date: 09/14/20 Patient is feeling well, pain controlled, no acute events overnight, more flatus today Objective - Vital Signs Vital signs: Vital Signs Temp 98.2 F 09/14/20 14:00 Pulse 51 L 09/14/20 14:00 Resp 18 09/14/20 14:00 BP 103/56 09/14/20 14:00 Pulse Ox 97 09/14/20 14:00 Intake & Output 09/13/20 09/14/20 09/14/20 18:59 06:59 18:59 Intake Total 828 Balance 828 Intake: Intake, IV Titration 828 Amount Mvi, Adult No.4 with Vit 828 K 10 ml Trace (Conc-1Ml/ Dose) 1 ml Sodium Chloride 4Meq/ml Vial 12 meq In Amino Acid 5%-D15w +Lytes*E* 1,000 ml @ 60 mls/hr IV .[id number] [facility] Rx #:[id number] Oral 0 Other: Voiding Method Urinal Toilet Toilet Urinal Urinal # Voids 3 3 - Constitutional General appearance: Present: cooperative - Cardiovascular Rhythm: regular - Gastrointestinal Gastrointestinal Comment(s): s/nt - Labs CBC & Chem 7: 09/06/20 07:27 09/14/20 05:59 Labs: Abnormal Lab Results - Last 24 Hours (Table) 09/14/20 Range/Units 05:59 Sodium 135 L (137-145) mmol/L Creatinine 0.60 L (0.66-1.25) mg/dL Glucose 117 H (74-99) mg/dL Assessment and Plan Assessment: S/p Ileocecectomy Plan: Tolerating clears, advance to soft as tolerated, DC TPN if tolerating diet
[2020-09-15] MEDS: HYDROmorphone 0.5 MG/0.5 ML SYRINGE IVP PRN ×6 (02:21→21:01)
[2020-09-15] MEDS: AMPICILLIN-SULBACTAM 3 GM in SODIUM CHLORIDE 0.9% 100 ML IVPB SCH ×4 (02:21→21:00)
[2020-09-15] MEDS: MVI, ADULT NO.4 WITH VIT K 10 ML, TRACE (CONC-1ML/DOSE) 1 ML, SODIUM CHLORIDE 4MEQ/ML V... IV SCH ×4 (04:40)
[2020-09-15] MEDS: METOCLOPRAMIDE 5 MG/ML 2 ML VIAL IVP SCH ×4 (04:45→21:01)
[2020-09-15 07:22] LABS: African American GFR (CKD) >90 (>60 ml/min/1.73 sqM); Anion Gap 3 mmol/L; Blood Urea Nitrogen 15 mg/dL (9-20); Calcium 8.6 mg/dL (8.4-10.2); Carbon Dioxide 28 mmol/L (22-30); Chloride 105 mmol/L (98-107); Glucose 106 mg/dL (74-99); Magnesium 2.1 mg/dL (1.6-2.3); Non-African American GFR(CKD) >90 (>60 ml/min/1.73 sqM); Phosphorus 3.5 mg/dL (2.5-4.5); Potassium 4.6 mmol/L (3.5-5.1); Sodium 136 mmol/L (137-145)
[2020-09-15 07:28] LABS: Basophils % (A) 1 %; Eosinophils # (A) 0.4 k/uL (0-0.7); Eosinophils % (A) 6 %; HCT 34.3 % (39.0-53.0); Lymphocytes % (A) 18 %; MCH 31.6 pg (25.0-35.0); MCHC 32.1 g/dL (31.0-37.0); MCV 98.2 fL (80.0-100.0); Mean Platelet Volume 8.2; Monocytes # (A) 0.5 k/uL (0-1.0); Monocytes % (A) 9 %; Neutrophils # (A) 3.5 k/uL (1.3-7.7); Neutrophils % (A) 64 %; Platelet Count 222 k/uL (150-450); RDW 13.1 % (11.5-15.5); WBC 5.5 k/uL (3.8-10.6)
[2020-09-15] MEDS: LACTATED RINGERS 1,000 ML IV SCH ×2 (07:33→20:56)
[2020-09-15] MEDS: PANTOPRAZOLE 40 MG/10 ML VIAL IVP SCH ×2 (07:33→21:00)
[2020-09-15] MEDS: HEPARIN SODIUM,PORCINE/PF 5,000 UNIT/0.5 ML SYRINGE SQ SCH ×2 (07:34→21:01)
[2020-09-15] MEDS: IPRATROPIUM-ALBUTEROL 3 ML NEB INHALATION SCH ×3 (08:53→21:30)
--- NOTE | 2020-09-15 14:10 | P.PN ---
Subjective Progress Note Date: 09/15/20 This is a 55-year-old male patient who was recently admitted with acute abdominal abscess, possibly secondary to perforation during surgery. Patient remains on broad-spectrum IV antibiotics; abdominal surgical site cultures reveal beta-hemolytic streptococcus; ID on board and patient is maintained on br oad spectrum antibiotics, IV Unasyn 09/09/2020 Patient is seen and evaluated in room at bedside; no specific complaints Vital signs reveal temperature of 98.2, pulse of 51, respiration 18 and blood p ressure of 118/66; patient is saturating 93% on room air Lab review shows a BUN of 8 with creatinine of 0.4 Patient with intra-abdominal abscess from possibly perforated appendicitis and is status post ileocecectomy; abdominal culture reveals beta-hemolytic streptococcus and anaerobes; patient is currently on IV Unasyn; ID on board and recommending to continue current antibiotics. Further recommendations forthcoming 09/10/2020 Patient is seen and evaluated in room at bedside; patient is status post ileocecectomy; continues to have NG tube to suctioning; patient's NG tube was clamped yesterday but did not tolerate and was placed back to suction; patient reports ambulating in the hallway but no bowel movement or flatus at this time Vital signs are reviewed stable with a temperature of 98.1, pulse 72, respiration 18 and blood pressure 122/62 Patient recommended to continue with NG tube due to ileus; surgery on board recommending to continue with supportive care and encourage incentive spirometry and increase ambulation 09/11/2020 Patient reports no complaints except for some abdominal discomfort; continues to have NGT to succtioning; no flatus or BM Vital signs are reviewed and stable; ; patient with intra-abdominal abscess from possibly perforated appendicitis and is status post ileocecectomy; abdominal culture reveals beta-hemolytic streptococcus and anaerobes; patient is currently on IV Unasyn patient recommended to continue with increased activity 09/12/2020 Patient is seen and evaluated and follow-up today continues to have NG tube and is being closely monitored. Surgery following closely as well. Patient is maintained on IV Unasyn and will continue and infectious disease is following. No reports of gas or bowel movements as of yet. Sodium today is 138 with a potassium of 4.3 current creatinine is 0.58 and magnesium is 2.1. Patient is afebrile. 09/13/2020 Patient is seen this morning and states he has started passing gas with positive bowel sounds noted on exam. Patient continues with NG tube and drainage has decreased in output and will continue for now with surgery following. Occasional NG clamping per surgery. Infectious disease following and patient is maintained on IV antibiotics and will continue until bowel functions returned. Patient also continues on TPN and will continue. Patient has been up and walking with no difficulties. Sodium today is 136 with a potassium of 4.2 creatinine is within normal limits at 0.53. Patient remains afebrile. 09/14/2020 Patient is seen this morning up and walking looking well today. NG tube was discontinued and patient states that was a huge improvement from his discomfort. Patient continues on TPN for now and initiating soft diet per surgery recommendations and will wean TPN as tolerated. Sodium today 135 with a potassium of 4.3 and current creatinine is 0.6, magnesium is 2.1. Vital signs are stable. Patient is afebrile. Patient continues on IV Unasyn and will continue for now. Infectious disease is following. Patient reports passing gas and continues to have bowel sounds noted although no reports of bowel movement as of yet. Again encourage the patient to increase activity as tolerated. 09/15/2020 Patient is seen this morning continues to be walking more frequently and tolerating well. Patient was started on soft diet and tolerating with no reports of nausea or vomiting noted. Patient is passing gas with no bowel movements reported as of yet. Patient continues with VIRGINIE drain with minimal output noted. Abdominal dressings recently changed and are dry and intact with abdominal binder noted. Patient reported to Having some sacral area tenderness and is noted to have some skin breakdown with possible stage II pressure injury and using barrier cream. Patient has been rotating with multiple position changes and as mentioned previously up more often. Patient is maintained on TPN and will await surgical for recommendations on weaning. Review of systems: Constitutional: No reports of fatigue, fever, or chills Cardiovascular: No reports of chest pain or palpitations Respiratory: No reports of shortness of breath or cough GI: No reports of nausea, vomiting, or diarrhea, reports passing gas with no bowel movement as of yet : No reports of dysuria or retention Neurovascular: No reports of weakness or numbness All medications have been reviewed Objective - Vital Signs Vital signs: Vital Signs Temp 98.0 F 09/15/20 08:00 Pulse 49 L 09/15/20 08:00 Resp 16 09/15/20 08:00 BP 97/59 09/15/20 08:00 Pulse Ox 96 09/15/20 08:00 Intake & Output 09/14/20 09/15/20 09/15/20 18:59 06:59 18:59 Intake Total 1000 Output Total 10 Balance -10 1000 Intake: Intake, IV Titration 1000 Amount Mvi, Adult No.4 with Vit 1000 K 10 ml Trace (Conc-1Ml/ Dose) 1 ml Sodium Chloride 4Meq/ml Vial 16 meq In Amino Acid 5%-D15w +Lytes*E* 1,000 ml @ 60 mls/hr IV .[id number] [facility] Rx #:[id number] Output: Drainage 10 Anterior Abdomen 10 Other: Voiding Method Toilet Toilet Urinal Urinal # Voids 3 3 - Exam Gen: This is a 55-year-old male currently walking around the room, awake, alert and oriented 3, thin built. HEENT: Head is atraumatic, normocephalic. Pupils equal, round. Sclerae is anicteric. NECK: Supple. No JVD. No lymphadenopathy. No thyromegaly. LUNGS: Diminished breath sounds bilaterally with no wheezing or rhonchi noted. No intercostal retractions. HEART: S1, S2 are muffled ABDOMEN: Soft. Thin. Positive bowel sounds noted on exam. No masses. Mild tenderness on palpation. EXTREMITIES: No pedal edema. No calf tenderness. NEUROLOGICAL: Patient is awake, alert and oriented x3. Cranial nerves 2 through 12 are grossly intact. SKIN: Stage II coccyx pressure injury noted with no surrounding redness or drainage noted. - Labs CBC & Chem 7: 09/15/20 06:33 09/15/20 06:33 Labs: Abnormal Lab Results - Last 24 Hours (Table) 09/15/20 09/15/20 09/15/20 Range/Units 06:33 06:33 06:33 RBC 3.50 L (4.30-5.90) m/uL Hgb 11.0 L D (13.0-17.5) gm/dL Hct 34.3 L (39.0-53.0) % Sodium 136 L (137-145) mmol/L Creatinine 0.60 L (0.66-1.25) mg/dL Glucose 106 H (74-99) mg/dL Albumin 2.9 L (3.5-5.0) g/dL Assessment and Plan Assessment: Intra-abdominal abscess secondary to perforated appendicitis; status post ileocecectomy with abdominal wound cultures growing beta-hemolytic Streptococcus Leukocytosis secondary to above, resolved Stage II coccyx pressure injury secondary to poor oral intake and prolonged hospitalization Hyponatremia, improved Hyperglycemia, resolved Degenerative joint disease Mild protein calorie malnutrition DVT prophylaxis Full code Plan: Continue with current medications and current management. Will continue to fol low along with surgery and infectious disease closely. Patient is maintained on TPN and being advanced to soft diet and tolerating no reports of nausea or vomiting noted. Patient states he is passing gas and has not had a bowel movement as of yet. Positive bowel sounds noted on exam. Basic metabolic panel within normal limits and will repeat labs in continue to monitor closely. White blood count improved and is 5.5. Patient noted to have some skin breakdown at the coccyx area stage II pressure injury and will continue with barrier cream and frequent position changes. May use Gelfoam as needed. Instructed the patient to continue to increase activity as tolerated and continue using i ncentive spirometer at least 10 times every hour while awake. Awaiting to wean TPN slowly per surgical recommendations. Thank you for this consultation.
[2020-09-15] MEDS: FAT EMULSION 20% 250 ML IV SCH (15:36)
--- NOTE | 2020-09-15 19:01 | PN ---
PROGRESS NOTE DATE OF SERVICE: 09/15/2020 REASON FOR FOLLOWUP: Abdominal abscess from perforated appendicitis. INTERVAL HISTORY: Patient is afebrile. The patient is breathing comfortably. The patient denies having any chest pain. No shortness of breath or cough. Abdominal pain is currently controlled. Has been passing gas and had bowel movement. PHYSICAL EXAMINATION: Blood pressure 107/56, pulse of 60, temperature 98.7. He is 98% on room air. General description is a middle-aged male lying in bed in no distress. Respiratory system: Unlabored breathing, clear to auscultation. Heart: S1, S2. Regular rate and rhythm. Abdomen soft, no tenderness. Extremities: No edema of the feet. LABS: Hemoglobin is 11, white count 5.5, BUN of 15, creatinine 0.60. DIAGNOSTIC IMPRESSION AND PLAN: Patient with intraabdominal abscess, possibly from perforated appendicitis, status post drainage. Culture with group F strep and anaerobes. Patient is covered with Unasyn, to continue. Transition to oral antibiotic on discharge. Continue supportive care. MMODL / IJN: [id number] /
--- NOTE | 2020-09-15 20:19 | P.PN ---
Subjective Progress Note Date: 09/15/20 Patient is feeling well, pain controlled, no acute events overnight, more flatus today Objective - Vital Signs Vital signs: Vital Signs Temp 98.6 F 09/15/20 19:56 Pulse 47 L 09/15/20 19:56 Resp 16 09/15/20 19:56 BP 98/52 09/15/20 19:56 Pulse Ox 99 09/15/20 19:56 Intake & Output 09/15/20 09/15/20 09/16/20 06:59 18:59 06:59 Intake Total 1000 Output Total 20 Balance 1000 -20 Weight 58.967 kg Intake: Intake, IV Titration 1000 Amount Mvi, Adult No.4 with Vit 1000 K 10 ml Trace (Conc-1Ml/ Dose) 1 ml Sodium Chloride 4Meq/ml Vial 16 meq In Amino Acid 5%-D15w +Lytes*E* 1,000 ml @ 60 mls/hr IV .[id number] [facility] Rx #:[id number] Output: Drainage 20 Anterior Abdomen 20 Other: Voiding Method Toilet Toilet Urinal Urinal # Voids 3 3 - Constitutional General appearance: Present: cooperative - Cardiovascular Rhythm: regular - Gastrointestinal Gastrointestinal Comment(s): S/NT/ND VIRGINIE serous - Labs CBC & Chem 7: 09/15/20 06:33 09/15/20 06:33 Labs: Abnormal Lab Results - Last 24 Hours (Table) 09/15/20 09/15/20 09/15/20 Range/Units 06:33 06:33 06:33 RBC 3.50 L (4.30-5.90) m/uL Hgb 11.0 L D (13.0-17.5) gm/dL Hct 34.3 L (39.0-53.0) % Sodium 136 L (137-145) mmol/L Creatinine 0.60 L (0.66-1.25) mg/dL Glucose 106 H (74-99) mg/dL Albumin 2.9 L (3.5-5.0) g/dL Assessment and Plan Assessment: S/p Ileocecectomy Plan: Tolerating soft diet, DC TPN, KVO fluids, anticipate DC home tomorrow
[2020-09-16] MEDS: HYDROcodone/APAP 5-325MG 1 EACH TAB PO PRN ×3 (00:49→10:09)
[2020-09-16] MEDS: AMPICILLIN-SULBACTAM 3 GM in SODIUM CHLORIDE 0.9% 100 ML IVPB SCH ×2 (02:14→08:38)
[2020-09-16] MEDS: METOCLOPRAMIDE 5 MG/ML 2 ML VIAL IVP SCH ×2 (05:49→13:20)
[2020-09-16 06:27] LABS: African American GFR (CKD) >90 (>60 ml/min/1.73 sqM); Anion Gap 6 mmol/L; Blood Urea Nitrogen 17 mg/dL (9-20); Calcium 8.8 mg/dL (8.4-10.2); Carbon Dioxide 27 mmol/L (22-30); Chloride 103 mmol/L (98-107); Glucose 73 mg/dL (74-99); Magnesium 2.1 mg/dL (1.6-2.3); Non-African American GFR(CKD) >90 (>60 ml/min/1.73 sqM); Phosphorus 3.2 mg/dL (2.5-4.5); Potassium 4.4 mmol/L (3.5-5.1); Sodium 136 mmol/L (137-145)
[2020-09-16] MEDS: IPRATROPIUM-ALBUTEROL 3 ML NEB INHALATION SCH ×2 (08:13→11:56)
[2020-09-16] MEDS: HEPARIN SODIUM,PORCINE/PF 5,000 UNIT/0.5 ML SYRINGE SQ SCH (08:38)
[2020-09-16] MEDS: PANTOPRAZOLE 40 MG/10 ML VIAL IVP SCH (08:38)
--- NOTE | 2020-09-16 11:41 | CT ---
EXAMINATION TYPE: CT abdomen pelvis w con DATE OF EXAM: 09/16/2020 COMPARISON: 09/03/2020 INDICATION: Post OP bowel resection and appendectomy. DLP: 533.3 mGycm, Automated exposure control for dose reduction was used. CONTRAST: 100 mL of Isovue 300. Study performed without Oral Contrast TECHNIQUE: Axial images were obtained from above the diaphragm to the pubic rami in the axial plane a t 5 mm thick sections. Reconstructed images are reviewed on the computer in the coronal plane. FINDINGS: Limited CT sections are obtained the lung bases. The lung bases are clear. Small pericardial effusi on is present CT ABDOMEN: Liver: Normal Spleen: Normal Pancreas: Normal Adrenal glands: The adrenal glands are normal. Gallbladder: Normal Kidneys: No masses are evident. No hydronephrosis is present. There is a 0.2 cm nonobstructing renal stone in the mid left kidney. No cysts are present. Delayed images were obtained through the kidney s, which remain unremarkable. Aorta: Vascular calcification is within the aorta. Inferior vena cava: Normal. CT PELVIS: There is a small to moderate amount of free fluid within the pelvis which is abnormal in a male. There are some prominent small bowel loops within the pelvis. Scattered diverticuli within the sigmoi d colon. This study is performed without oral contrast. Appendix: Not identified. Postsurgical changes are in the right lower quadrant. Correlate with surgic al history. Drainage catheter is over the right lower quadrant. Small amount of residual subcutaneous air is present in the right lower quadrant Urinary bladder: Normal. Genitourinary structures: Prostate is unremarkable. Osseous structures: No suspicious lytic or sclerotic lesions are evident. IMPRESSIONS: 1. Postsurgical changes. No suspicious abscess formation is evident. 2. There is moderate free fluid within the pelvis. 3. Diverticulosis without acute diverticulitis. 4. Punctate nonobstructing left mid renal stone
--- NOTE | 2020-09-16 13:53 | P.PN ---
Subjective Progress Note Date: 09/16/20 Patient is feeling well, pain controlled, no acute events overnight, had a BM Objective - Vital Signs Vital signs: Vital Signs Temp 98.3 F 09/16/20 07:34 Pulse 59 L 09/16/20 07:34 Resp 17 09/16/20 07:34 BP 102/58 09/16/20 07:34 Pulse Ox 95 09/16/20 07:34 Intake & Output 09/15/20 09/16/20 09/16/20 18:59 06:59 18:59 Output Total 20 Balance -20 Weight 58.967 kg Output: Drainage 20 Anterior Abdomen 20 Other: Voiding Method Toilet Toilet Urinal Urinal # Voids 3 2 # Bowel Movements 0 1 - Constitutional General appearance: Present: cooperative - Cardiovascular Rhythm: regular - Gastrointestinal Gastrointestinal Comment(s): S/NT/ND incisions CDI - Labs CBC & Chem 7: 09/15/20 06:33 09/16/20 05:33 Labs: Abnormal Lab Results - Last 24 Hours (Table) 09/16/20 Range/Units 05:33 Sodium 136 L (137-145) mmol/L Glucose 73 L (74-99) mg/dL Assessment and Plan Assessment: S/p Ileocecectomy Plan: Tolerating soft diet, VIRGINIE Ward. MILAGROS home today, follow up in one week in office
[2020-09-16 14:04] VITALS: BP 110/66; PULSE 51; RESP 18; TEMP 98.1
[2020-09-16] MEDS ORDERED: HYDROcodone/APAP 7.5-325MG 1 EACH TAB PO PRN (15:08)
--- NOTE | 2020-09-16 15:11 | P.PN ---
Subjective Progress Note Date: 09/16/20 This is a 55-year-old male patient who was recently admitted with acute abdominal abscess, possibly secondary to perforation during surgery. Patient remains on broad-spectrum IV antibiotics; abdominal surgical site cultures reveal beta-hemolytic streptococcus; ID on board and patient is maintained on br oad spectrum antibiotics, IV Unasyn 09/09/2020 Patient is seen and evaluated in room at bedside; no specific complaints Vital signs reveal temperature of 98.2, pulse of 51, respiration 18 and blood p ressure of 118/66; patient is saturating 93% on room air Lab review shows a BUN of 8 with creatinine of 0.4 Patient with intra-abdominal abscess from possibly perforated appendicitis and is status post ileocecectomy; abdominal culture reveals beta-hemolytic streptococcus and anaerobes; patient is currently on IV Unasyn; ID on board and recommending to continue current antibiotics. Further recommendations forthcoming 09/10/2020 Patient is seen and evaluated in room at bedside; patient is status post ileocecectomy; continues to have NG tube to suctioning; patient's NG tube was clamped yesterday but did not tolerate and was placed back to suction; patient reports ambulating in the hallway but no bowel movement or flatus at this time Vital signs are reviewed stable with a temperature of 98.1, pulse 72, respiration 18 and blood pressure 122/62 Patient recommended to continue with NG tube due to ileus; surgery on board recommending to continue with supportive care and encourage incentive spirometry and increase ambulation 09/11/2020 Patient reports no complaints except for some abdominal discomfort; continues to have NGT to succtioning; no flatus or BM Vital signs are reviewed and stable; ; patient with intra-abdominal abscess from possibly perforated appendicitis and is status post ileocecectomy; abdominal culture reveals beta-hemolytic streptococcus and anaerobes; patient is currently on IV Unasyn patient recommended to continue with increased activity 09/12/2020 Patient is seen and evaluated and follow-up today continues to have NG tube and is being closely monitored. Surgery following closely as well. Patient is maintained on IV Unasyn and will continue and infectious disease is following. No reports of gas or bowel movements as of yet. Sodium today is 138 with a potassium of 4.3 current creatinine is 0.58 and magnesium is 2.1. Patient is afebrile. 09/13/2020 Patient is seen this morning and states he has started passing gas with positive bowel sounds noted on exam. Patient continues with NG tube and drainage has decreased in output and will continue for now with surgery following. Occasional NG clamping per surgery. Infectious disease following and patient is maintained on IV antibiotics and will continue until bowel functions returned. Patient also continues on TPN and will continue. Patient has been up and walking with no difficulties. Sodium today is 136 with a potassium of 4.2 creatinine is within normal limits at 0.53. Patient remains afebrile. 09/14/2020 Patient is seen this morning up and walking looking well today. NG tube was discontinued and patient states that was a huge improvement from his discomfort. Patient continues on TPN for now and initiating soft diet per surgery recommendations and will wean TPN as tolerated. Sodium today 135 with a potassium of 4.3 and current creatinine is 0.6, magnesium is 2.1. Vital signs are stable. Patient is afebrile. Patient continues on IV Unasyn and will continue for now. Infectious disease is following. Patient reports passing gas and continues to have bowel sounds noted although no reports of bowel movement as of yet. Again encourage the patient to increase activity as tolerated. 09/15/2020 Patient is seen this morning continues to be walking more frequently and tolerating well. Patient was started on soft diet and tolerating with no reports of nausea or vomiting noted. Patient is passing gas with no bowel movements reported as of yet. Patient continues with VIRGINIE drain with minimal output noted. Abdominal dressings recently changed and are dry and intact with abdominal binder noted. Patient reported to Having some sacral area tenderness and is noted to have some skin breakdown with possible stage II pressure injury and using barrier cream. Patient has been rotating with multiple position changes and as mentioned previously up more often. Patient is maintained on TPN and will await surgical for recommendations on weaning. 09/16/2020 Patient is seen and evaluated and follow-up this morning with NG tube has been removed and patient has been weaned off TPN and tolerating regular diet. Patient does have positive bowel sounds and reports the passing gas but continues to have no bowel movement at this time. Surgery Dr. polanco following closely. Plans are for possible discharge today. AP drain noted with minimal output over the last 48 hours. Patient continues to have stage II pressure injury and states is improving with barrier cream and will continue and instructed the patient to continue with the outpatient setting. Vital signs are stable and patient remains afebrile. Review of systems: Constitutional: No reports of fatigue, fever, or chills Cardiovascular: No reports of chest pain or palpitations Respiratory: No reports of shortness of breath or cough GI: No reports of nausea, vomiting, or diarrhea, reports passing gas with no bowel movement as of yet : No reports of dysuria or retention Neurovascular: No reports of weakness or numbness All medications have been reviewed Objective - Vital Signs Vital signs: Vital Signs Temp 98.1 F 09/16/20 14:03 Pulse 51 L 09/16/20 14:03 Resp 18 09/16/20 14:03 BP 110/66 09/16/20 14:03 Pulse Ox 97 09/16/20 14:03 Intake & Output 09/15/20 09/16/20 09/16/20 18:59 06:59 18:59 Output Total 20 Balance -20 Weight 58.967 kg 58.967 kg Output: Drainage 20 Anterior Abdomen 20 Other: Voiding Method Toilet Toilet Urinal Urinal # Voids 3 2 # Bowel Movements 0 1 - Exam Gen: This is a 55-year-old male currently walking around the room, awake, alert and oriented 3, thin built. HEENT: Head is atraumatic, normocephalic. Pupils equal, round. Sclerae is anicteric. NECK: Supple. No JVD. No lymphadenopathy. No thyromegaly. LUNGS: Diminished breath sounds bilaterally with no wheezing or rhonchi noted. No intercostal retractions. HEART: S1, S2 are muffled ABDOMEN: Soft. Thin. Positive bowel sounds noted on exam. No masses. Mild tenderness on palpation. EXTREMITIES: No pedal edema. No calf tenderness. NEUROLOGICAL: Patient is awake, alert and oriented x3. Cranial nerves 2 through 12 are grossly intact. SKIN: Stage II coccyx pressure injury noted with no surrounding redness or drainage noted. - Labs CBC & Chem 7: 09/15/20 06:33 09/16/20 05:33 Labs: Abnormal Lab Results - Last 24 Hours (Table) 09/16/20 Range/Units 05:33 Sodium 136 L (137-145) mmol/L Glucose 73 L (74-99) mg/dL Assessment and Plan Assessment: Intra-abdominal abscess secondary to perforated appendicitis; status post ileocecectomy with abdominal wound cultures growing beta-hemolytic Streptococcus Leukocytosis secondary to above, resolved Stage II coccyx pressure injury secondary to poor oral intake and prolonged hospitalization Hyponatremia, improved Hyperglycemia, resolved Degenerative joint disease Mild protein calorie malnutrition DVT prophylaxis Full code Plan: Continue with current medications and current management. Will continue to follow along with surgery and infectious disease closely. Patient has been weaned off TPN and tolerating diet and passing gas although no reports of bowel movements as of yet. Instructed the patient to continue to increase activity as tolerated and continue using incentive spirometer at least 10 times every hour while awake. Patient will go home on oral antibiotics per infectious disease recommendations and will follow-up closely with surgery in the outpatient setting. Patient is scheduled to be discharged today. Thank you for this consultation.
--- NOTE | 2020-09-16 17:34 | PN ---
PROGRESS NOTE DATE OF SERVICE: 09/16/2020 REASON FOR FOLLOWUP: Intraabdominal abscess. INTERVAL HISTORY: Patient is afebrile. The patient is breathing comfortably. Denies having any chest pain, shortness of breath or cough. Abdominal pain is currently controlled. Has been tolerating his diet and no diarrhea. PHYSICAL EXAMINATION: Blood pressure 110/66, pulse of 51, temperature 98.1. He is 97% on room air. General description is a middle-aged male lying in bed in no distress. Respiratory system: Unlabored breathing, clear to auscultation anteriorly. Heart S1, S2. Regular rate and rhythm. Abdomen soft. No guarding or rigidity. LABS: BUN of 17, creatinine 0.68. DIAGNOSTIC IMPRESSION AND PLAN: Patient with abdominal abscess with beta-hemolytic strep, Staph F and anaerobes. Patient overall improvement with Unasyn. Finish therapy with short course of oral Ceftin and Flagyl and close outpatient followup. Discussed with the medicine team. Continue supportive care. MMODL / IJN: [id number] /
--- NOTE | 2020-09-19 11:54 | CDI ---
Documentation Clarification Form Date: 09/19/2020 11:37:00 AM From: Manju Andrea Admit Date: 09/03/2020 01:01:00 PM Patient Name: Hola Baxter Visit Number: [id number] Discharge Date: 09/16/2020 04:14:00 PM TTENTION: The Clinical Documentation Specialists (CDI) and [facility] Coding Staff appreciate your assistance in clarifying documentation. Please respond to the clarification below the line at the bottom and electronically sign. The CDI & [facility] Coding staff will review the response and follow-up if needed. Please note: Queries are made part of the Legal Health Record. If you have any questions, please contact the author of this message via ITS. Dr. Ralph Bolden The patient presented with abdominal pain due to perforated ileocecal and appendix with ileus. Dr. Fulton documents patient with possible sepsis. Sepsis not carried through chart. Please clarify if patient had sepsis or was it ruled out. History/Risk Factors: Perforated intestine and appendix Clinical Indicators: WBC: 19.19 Lactic acid: 1.0 wound cultures: Beta hemolytic strep Vitals signs: 97.8 F 68 bpm, 18, 134/78, 97 RA Treatment:Zoxyn, Unasyn, Gental IV fluids ID Consult: Not bacteremic white count showing downward dtrend Antibiotics: Zosyn and Unasyn In your professional opinion, please clarify if these findings signify one of the following conditions: [ ] Sepsis POA [ ] Sepsis, Not POA [ ] Sepsis ruled out [ ] Severe Sepsis with organ failure [ ] Septic Shock [ ] SIRS, without underlying infectious process [ ] Other, please specify [ ] Unable to determine SIRS Criteria: 2 or more of the following may indicate SIRS -Temperature < 96.8F (36C) or > 101.0F (38.3C) -Heart Rate > 90 bpm -Respiratory Rate > 20 breaths/min or PaCO2 < 32 mmHg -White Blood Cell Count > 12,000 or < 4,000 cells/mm3 or > This was in Dr. Fulton's note as you stated in the question. Please refer to him NIHARIKA
--- NOTE | 2020-09-26 12:25 | P.DS ---
Providers Date of admission: 09/03/20 13:01 Attending physician: Ralph Bolden DO Consults: 09/03/20 16:26 Consult Physician Routine Consulting Provider: Trung Fulton Consult Reason/Comments: Medical Managment Do you want consulting provider notified?: Already Contacted 09/07/20 15:51 Consult Physician Routine Consulting Provider: Angelica Lance Consult Reason/Comments: abd abscess, positive wound culture Do you want consulting provider notified?: Yes Primary care physician: [facility] Hospital Course: Patient underwent diagnostic laparoscopy converted to exploratory laparotomy with ileocecectomy secondary to suspected perforated appendicitis or perforated terminal ileum. Post operativly patient did well, he had an ileus which was expected and when he began having bowel function his diet was increased and he tolerated this. He was discharged home in stable condition with instructions to follow up with myself and his primary care doctor. Please see chart for any further details Patient Condition at Discharge: Fair Plan - Discharge Summary Discharge Rx Participant: Yes New Discharge Prescriptions: New Docusate [Colace] 100 mg PO DAILY #20 capsule Cefuroxime Axetil [Ceftin] 500 mg PO BID 10 Days #20 tab HYDROcodone/APAP 7.5-325MG [Irwin 7.5-325] 1 tab PO Q4H PRN #20 tab PRN Reason: Pain metroNIDAZOLE [Flagyl] 500 mg PO TID 10 Days #30 tab Continue Ibgard 2 cap PO TID PRN PRN Reason: IBS Multivit-Min/FA/Lycopen/Lutein [Centrum Silver Men Tablet] 1 tab PO DAILY Hyoscyamine Sulfate [Hyoscyamine Sulfate SL] 0.125 mg SL Q8H PRN PRN Reason: IBS Discharge Medication List Hyoscyamine Sulfate [Hyoscyamine Sulfate SL] 0.125 mg SL Q8H PRN 09/03/20 [History] Ibgard 2 cap PO TID PRN 09/03/20 [History] Multivit-Min/FA/Lycopen/Lutein [Centrum Silver Men Tablet] 1 tab PO DAILY 09/03/20 [History] Cefuroxime Axetil [Ceftin] 500 mg PO BID 10 Days #20 tab 09/16/20 [Rx] Docusate [Colace] 100 mg PO DAILY #20 capsule 09/16/20 [Rx] HYDROcodone/APAP 7.5-325MG [Irwin 7.5-325] 1 tab PO Q4H PRN #20 tab 09/16/20 [Rx] metroNIDAZOLE [Flagyl] 500 mg PO TID 10 Days #30 tab 09/16/20 [Rx] Follow up Appointment(s)/Referral(s): Ralph Bolden DO [Doctor of Osteopathic Medicine] - 1 Week (Please call and make an appointment, office closed) Zen Parsons MD [Primary Care Provider] - 09/22/20 2:00 pm [facility], [NON-STAFF] - Patient Instructions/Handouts: Colectomy (DC) Activity/Diet/Wound Care/Special Instructions: Activity Limited until follow-up Follow-up with surgery outpatient Follow-up with primary care provider upon discharge Continue antibiotics until finished Continue with barrier cream to the coccyx region Discharge Disposition: HOME SELF-CARE
--- NOTE | 2020-09-28 10:10 | CDI ---
Documentation Clarification Form Date: 09/19/2020 11:37:00 AM From: Manju Andrea Admit Date: 09/03/2020 01:01:00 PM Patient Name: Hola Baxter Visit Number: [id number] Discharge Date: 09/16/2020 04:14:00 PM ATTENTION: The Clinical Documentation Specialists (CDI) and [facility] Coding Staff appreciate your assistance in clarifying documentation. Please respond to the clarification below the line at the bottom and electronically sign. The CDI & [facility] Coding staff will review the response and follow-up if needed. Please note: Queries are made part of the Legal Health Record. If you have any questions, please contact the author of this message via ITS. Dr. Bolden The patient presented with abdominal pain due to perforated ileocecal and appendix with ileus. Donaldo documented patient with possible sepsis. But Sepsis not carried through chart. Please clarify if patient had sepsis or was it ruled out. History/Risk Factors: Perforated intestine and appendix Clinical Indicators: WBC: 19.19 Lactic acid: 1.0 wound cultures: Beta hemolytic strep Vitals signs: 97.8 F 68 bpm, 18, 134/78, 97 RA Treatment:Zoxyn, Unasyn, Gental IV fluids ID Consult: Not bacteremic white count showing downward dtrend Antibiotics: Zosyn and Unasyn In your professional opinion, please clarify if these findings signify one of the following conditions: [ ] Sepsis POA [ ] Sepsis, Not POA [ ] Sepsis ruled out [ ] Severe Sepsis with organ failure [ ] Septic Shock [ ] SIRS, without underlying infectious process [ ] Other, please specify [ ] Unable to determine SIRS Criteria: 2 or more of the following may indicate SIRS -Temperature < 96.8F (36C) or > 101.0F (38.3C) -Heart Rate > 90 bpm -Respiratory Rate > 20 breaths/min or PaCO2 < 32 mmHg -White Blood Cell Count > 12,000 or < 4,000 cells/mm3 or > The question is about Dr. Fulton's note, please confirm your question with him. NIHARIKA
--- NOTE | 2020-10-05 11:07 | CDI ---
Documentation Clarification Form Date: 09/19/2020 11:37:00 AM From: Manju Andrea Admit Date: 09/03/2020 01:01:00 PM Patient Name: Hola Baxter Visit Number: [id number] Discharge Date: 09/16/2020 04:14:00 PM ATTENTION: The Clinical Documentation Specialists (CDI) and [facility] Coding Staff appreciate your assistance in clarifying documentation. Please respond to the clarification below the line at the bottom and electronically sign. The CDI & [facility] Coding staff will review the response and follow-up if needed. Please note: Queries are made part of the Legal Health Record. If you have any questions, please contact the author of this message via ITS. Dr. Fulton, The patient presented with abdominal pain due to perforated ileocecal and appendix with ileus. You document patient with possible sepsis. Sepsis not carried through chart. Please clarify if patient had sepsis or was it ruled out. History/Risk Factors: Perforated intestine and appendix Clinical Indicators: WBC: 19.19 Lactic acid: 1.0 wound cultures: Beta hemolytic strep Vitals signs: 97.8 F 68 bpm, 18, 134/78, 97 RA Treatment:Zoxyn, Unasyn, Gental IV fluids ID Consult: Not bacteremic white count showing downward dtrend Antibiotics: Zosyn and Unasyn In your professional opinion, please clarify if these findings signify one of the following conditions: [ ] Sepsis POA [ ] Sepsis, Not POA [ ] Sepsis ruled out [ ] Severe Sepsis with organ failure [ ] Septic Shock [ ] SIRS, without underlying infectious process [ ] Other, please specify [ ] Unable to determine SIRS Criteria: 2 or more of the following may indicate SIRS -Temperature < 96.8F (36C) or > 101.0F (38.3C) -Heart Rate > 90 bpm -Respiratory Rate > 20 breaths/min or PaCO2 < 32 mmHg -White Blood Cell Count > 12,000 or < 4,000 cells/mm3 or > Sepsis LULA BUNDY
== END 2020-09-16 16:14 | disposition home or self-care (01) | DRG 853 ==
LOC: EC 10:00 → 4SSUR 13:01
PROVIDERS: ADMIT Student in an Organized Health Care Education/Training Program; ATTEND Student in an Organized Health Care Education/Training Program
PROC: 0DBB0ZZ Excision of Ileum, Open Approach (ICD-10-PCS; principal; 2020-09-03 13:28)
PROC: 0DBH0ZZ Excision of Cecum, Open Approach (ICD-10-PCS; principal; 2020-09-03 13:28)
PROC: 02HV33Z Insertion of Infusion Device into Superior Vena Cava, Percutaneous Approach (ICD-10-PCS; 2020-09-08)
PROC: 3E0336Z Introduction of Nutritional Substance into Peripheral Vein, Percutaneous Approach (ICD-10-PCS; 2020-09-13)
PROC: 0D9670Z Drainage of Stomach with Drainage Device, Via Natural or Artificial Opening (ICD-10-PCS; 2020-09-13)
DX: A41.9 Sepsis, unspecified organism (principal); K63.1 Perforation of intestine (nontraumatic); K35.33 Acute appendicitis with perforation, localized peritonitis, and gangrene, with abscess; E87.1 Hypo-osmolality and hyponatremia; E44.1 Mild protein-calorie malnutrition; Z68.1 Body mass index [BMI] 19.9 or less, adult; K50.90 Crohn's disease, unspecified, without complications; K56.609 Unspecified intestinal obstruction, unspecified as to partial versus complete obstruction; K56.7 Ileus, unspecified; E72.51 Non-ketotic hyperglycinemia; Z53.31 Laparoscopic surgical procedure converted to open procedure; Z20.822 Contact with and (suspected) exposure to COVID-19; F17.210 Nicotine dependence, cigarettes, uncomplicated; L89.152 Pressure ulcer of sacral region, stage 2; M19.90 Unspecified osteoarthritis, unspecified site; Z79.2 Long term (current) use of antibiotics; Z83.3 Family history of diabetes mellitus; Z87.81 Personal history of (healed) traumatic fracture; Z84.89 Family history of other specified conditions; R73.9 Hyperglycemia, unspecified; Z82.49 Family history of ischemic heart disease and other diseases of the circulatory system
CPT/HCPCS: 36415; 36573; 71045; 74177; 80048; 80053; 81001; 82040; 82330; 83605; 83690; 83735; 84100; 84478; 85025; 85652; 86140; 87040; 87070; 87075; 87086; 87205; 87635; 88302; 88307; 93005; 94640; 94760; 96361; 96365; 96375; 96376; 99285

== ENCOUNTER 2023-03-22 10:31 | Emergency (ER) | payer BC ==
[2023-03-22] MEDS ORDERED: DIPH,PERTUS(ACELL)TETVAC-LF 0.5 ML VIAL IM ONE (10:54)
[2023-03-22 10:55] VITALS: TEMP 98
--- NOTE | 2023-03-22 11:22 | CT ---
EXAMINATION TYPE: CT brain cspine wo con DATE OF EXAM: 03/22/2023 COMPARISON: None available. HISTORY: Fall. CT DLP: 1425.6 mGycm Automated exposure control for dose reduction was used. TECHNIQUE: CT scan of the head and cervical spine are performed without contrast. FINDINGS: There is no acute intracranial hemorrhage, mass effect, or midline shift identified. The ventricles and sulci are within normal limits in size. The globes are intact and the visualized sin uses are clear. Cervical spine is visualized in its entirety from C1 through upper thoracic levels and demonstrates s atisfactory alignment without evidence of acute fracture or dislocation. Prevertebral soft tissue ap pears within normal limits. The C1-C2 articulation is unremarkable. IMPRESSION: 1. There is no acute fracture or dislocation evident in the cervical spine. 2. No acute intracranial hemorrhage, mass effect, or midline shift is seen.
--- NOTE | 2023-03-22 11:36 | ED ---
Head Injury HPI - General Chief complaint: Head Injury Stated complaint: Fall/head laceration Time Seen by Provider: 03/22/23 10:36 Source: patient, RN notes reviewed Mode of arrival: ambulatory Limitations: no limitations - History of Present Illness Initial comments: 58-year-old male presents emergency Department with chief complaint of a fall. Patient states that he is moving quickly states he fell over striking his head. He is unsure when his last tetanus was. He had superficial laceration on the right side of his head that he put Steri-Strips on. Complains of mild headache denies neck pain no extremity injury no blurred vision denies nausea vomiting. - Related Data Home Medications Medication Instructions Recorded Confirmed Mv-Min/Folic/K1/Lycopen/Lutein 1 tab PO DAILY 09/03/20 07/04/21 [Centrum Silver Men Tablet] Previous Rx's Medication Instructions Recorded polyethylene glycoL 3350 [Miralax] 17 gm PO DAILY PRN #15 packet 07/04/21 Allergies/Adverse reactions: Allergies Allergy/AdvReac Type Severity Reaction Status Date / Time No Known Allergies Allergy Verified 03/22/23 10:35 Review of Systems ROS Statement: Those systems with pertinent positive or pertinent negative responses have been documented in the HPI. ROS Other: All systems not noted in ROS Statement are negative. Past Medical History Past Medical History: No Reported History Additional Past Medical History / Comment(s): colitis, abdominal pain, diverticulosis, IBS History of Any Multi-Drug Resistant Organisms: None Reported Past Surgical History: Hernia Repair, Orthopedic Surgery Additional Past Surgical History / Comment(s): 1997 right fibula spiral fracture-1 plate 10 screws placed (removed 2000), colonoscopy and endoscopy 2018 Past Anesthesia/Blood Transfusion Reactions: Motion Sickness, Postoperative Na usea & Vomiting (PONV) Past Psychological History: No Psychological Hx Reported Smoking Status: Current some day smoker Past Alcohol Use History: Rare Past Drug Use History: Marijuana - Past Family History Mother Family Medical History: Diabetes Mellitus Father Additional Family Medical History / Comment(s): patient states "cardiac issues" General Exam Limitations: no limitations General appearance: alert, in no apparent distress Head exam: Present: atraumatic, normocephalic. Absent: normal inspection (Right side of the forehead there is a superficial laceration that is well approximated) Eye exam: Present: normal appearance, PERRL, EOMI. Absent: scleral icterus, conjunctival injection, periorbital swelling ENT exam: Present: normal exam, mucous membranes moist Neck exam: Present: normal inspection, full ROM. Absent: tenderness, meni ngismus, lymphadenopathy Respiratory exam: Present: normal lung sounds bilaterally. Absent: respiratory distress, wheezes, rales, rhonchi, stridor Cardiovascular Exam: Present: regular rate, normal rhythm, normal heart sounds. Absent: systolic murmur, diastolic murmur, rubs, gallop, clicks Neurological exam: Present: alert, oriented X3, CN II-XII intact, reflexes normal. Absent: motor sensory deficit Skin exam: Present: warm, dry, intact, normal color. Absent: rash Course Vital Signs 03/22/23 10:33 Temperature 98 F Pulse Rate 66 Respiratory 20 Rate Blood Pressure 173/80 O2 Sat by Pulse 99 Oximetry Medical Decision Making - Medical Decision Making Was pt. sent in by a medical professional or institution (, PA, MODERN LANGUAGES PROFESSOR, urgent care, hospital, or jail...) When possible be specific @ -[Urgent care Did you speak to anyone other than the patient for history (EMS, parent, family, police, friend...)? What history was obtained from this source @ -No Did you review nursing and triage notes (agree or disagree)? Why? @ -I reviewed and agree with nursing and triage notes Were old charts reviewed (outside hosp., previous admission, EMS record, old EKG, old radiological studies, urgent care reports/EKG's, jail records)? Report findings @ -No old charts were reviewed Differential Diagnosis (chest pain, altered mental status, abdominal pain women, abdominal pain men, vaginal bleeding, weakness, fever, dyspnea, syncope, headache, dizziness, GI bleed, back pain, seizure, CVA, palpatations, mental health, musculoskeletal)? @ -Intracranial hemorrhage, scalp laceration, closed head injury, concussion EKG interpreted by me (3pts min.). @ -None X-rays interpreted by me (1pt min.). @ -None done CT interpreted by me (1pt min.). @ -[CT brain, C-spine shows no acute intracranial hemorrhage, mass effect or skull fracture noted no cervical fracture U/S interpreted by me (1pt. min.). @ -None done What testing was considered but not performed or refused? (CT, X-rays, U/S, labs)? Why? @ -None What meds were considered but not given or refused? Why? @ -None Did you discuss the management of the patient with other professionals (pr ofessionals i.e. , PA, MODERN LANGUAGES PROFESSOR, lab, RT, psych nurse, addiction social worker, computer engineering technician, teacher, [employer] officer, pillowcase maker)? Give summary @ -No Was smoking cessation discussed for >3mins.? @ -No Was critical care preformed (if so, how long)? @ -No Were there social determinants of health that impacted care today? How? (Homelessness, low income, unemployed, alcoholism, drug addiction, transportation, low edu. Level, literacy, decrease access to med. care, alf, rehab)? @ -No Was there de-escalation of care discussed even if they declined (Discuss DNR or withdrawal of care, Hospice)? DNR status @ -No What co-morbidities impacted this encounter? (DM, HTN, Smoking, COPD, CAD, Cancer, CVA, ARF, Chemo, Hep., AIDS, mental health diagnosis, sleep apnea, morbid obesity)? @ -None Was patient admitted / discharged? Hospital course, mention meds given and route, prescriptions, significant lab abnormalities, going to OR and other pertinent info. @ -Discharge CT imaging was negative lacerations was well approximated requires no closure tetanus is updated. Return parameters were discussed. Undiagnosed new problem with uncertain prognosis? @ -No Drug Therapy requiring intensive monitoring for toxicity (Heparin, Nitro, Insulin, Cardizem)? @ -No Were any procedures done? @ -No Diagnosis/symptom? @ -Scalp laceration, head injury Acute, or Chronic, or Acute on Chronic? @ -[Acute Uncomplicated (without systemic symptoms) or Complicated (systemic symptoms)? @ -Uncomplicated Side effects of treatment? @ -No Exacerbation, Progression, or Severe Exacerbation? @ -No Poses a threat to life or bodily function? How? (Chest pain, [place], [place], pneumonia, PE, COPD, DKA, ARF, appy, cholecystitis, CVA, Diverticulitis, Homicidal, Suicidal, threat to staff... and all critical care pts) @ -No Disposition Clinical Impression: Scalp laceration, Head injury Disposition: HOME SELF-CARE Condition: Stable Instructions (If sedation given, give patient instructions): Head Injury (ED) Additional Instructions: Please return to the Emergency Department if symptoms worsen or any other concerns. Is patient prescribed a controlled substance at d/c from ED?: No Referrals: Zen Parsons MD [Primary Care Provider] - 1-2 days Time of Disposition: 11:40
[2023-03-22 12:38] VITALS: BP 161/81; PULSE 51; RESP 14
== END 2023-03-22 12:32 | disposition home or self-care (01) ==
LOC: EC 10:31
DX: S01.01XA Laceration without foreign body of scalp, initial encounter (principal); F17.200 Nicotine dependence, unspecified, uncomplicated; F12.90 Cannabis use, unspecified, uncomplicated; Z23 Encounter for immunization; W18.30XA Fall on same level, unspecified, initial encounter
CPT/HCPCS: 70450; 72125; 90471; 90715; 99283